=== PATIENT | female | born 1980 | race Caucasian/White ===

== ENCOUNTER → 2017-06-05 13:44 | Outpatient (POV) | payer MEDICAID, SELFPAY | PROVIDERS: Family Provider Nurse Practitioner | DX: Z00.00 Encounter for general adult medical examination without abnormal findings (principal) ==

== ENCOUNTER → 2018-04-18 16:03 | Outpatient (CLI) | payer MEDICAID, SELFPAY ==
--- NOTE | 2018-04-18 16:07 | XR_ITS ---
XR chest 2V HISTORY: ITS.REASON: COUGH,CHEST PAIN ORDERING PHYSICIAN: Hannah Lomeli PATIENT AGE: 37 years COMPARISON: None FINDINGS: The cardiomediastinal silhouette and pulmonary vascularity are within normal limits. The lungs are clear without infiltrates, suspicious nodules, or pleural effusions. No acute bony abnormalities. IMPRESSION: Negative chest, no acute finding
== END ==
PROVIDERS: PCP Family Medicine; Visit Provider Nurse Practitioner
DX: R05 Cough (principal); R07.81 Pleurodynia
CPT/HCPCS: 71046

== ENCOUNTER → 2018-10-24 08:47 | Outpatient (CLI) | payer MEDICAID, SELFPAY ==
--- NOTE | 2018-10-24 09:09 | US_ITS ---
US thyroid HISTORY: ITS.REASON: THYROID NODULE ORDERING PHYSICIAN: Husam Garcia MD PATIENT AGE: 38 years Comparison: None FINDINGS: Right lobe: 4 x 1.5 x 1.4 cm Left lobe: 4.5 x 1.5 x 1.5 cm Isthmus: Unremarkable There is homogeneous echogenicity of the thyroid gland on both sides. No nodules apparent IMPRESSION: Mildly enlarged left lobe of the thyroid gland otherwise negative thyroid ultrasound. No nodules apparent
== END ==
PROVIDERS: PCP Family Medicine; Visit Provider Family Medicine
DX: R06.02 Shortness of breath (principal); E04.1 Nontoxic single thyroid nodule
CPT/HCPCS: 76536

== ENCOUNTER → 2020-12-08 12:49 | Outpatient (CLI) | payer OTHER, SELFPAY ==
--- NOTE | 2020-12-08 12:53 | US_ITS ---
PROCEDURE: US THYROID CLINICAL INDICATION: THYROID NODULE COMPARISON: No exams were available for comparison FINDINGS: Right lobe: The right lobe is 4.2 x 1.7 x 1.5 cm Left lobe: 4.2 x 1.7 x 1.5 cm Isthmus: Unremarkable Additional findings: No nodules are evident. There is homogeneous echogenicity within the thyroid gland on both sides. IMPRESSION: Unremarkable thyroid ultrasound Dictated by: Marcell Edwards MD 12/08/2020 13:34 Marcell Edwards MD in [place] 12/08/2020 13:34
== END ==
PROVIDERS: PCP Family Medicine; Visit Provider Nurse Practitioner
DX: E04.1 Nontoxic single thyroid nodule (principal)
CPT/HCPCS: 76536

== ENCOUNTER → 2021-05-22 12:13 | Outpatient (CLI) | payer OTHER, SELFPAY | PROVIDERS: PCP Family Medicine; Visit Provider Family Medicine | DX: R00.2 Palpitations (principal) | CPT/HCPCS: 93225; 93226 ==

== ENCOUNTER → 2021-11-29 06:59 | Outpatient (CLI) | payer BC, SELFPAY ==
[2021-11-28 19:11] LABS: Alanine Aminotransferase 27 U/L (12-78); Albumin Level 4.2 g/dl (3.5-5.0); Albumin/Globulin Ratio 1.4 (1.1-1.8); Alkaline Phosphatase 67 U/L (38-126); Aspartate Amino Transferase 32 U/L (14-36); Blood Urea Nitrogen 12 mg/dl (7-17); Calcium 9.7 mg/dl (8.4-10.2); Carbon Dioxide 29 mmol/L (22.0-30.0); Chloride 101 mmol/L (98-107); Estimated Glomerular Filt Rate 135 ml/min (>60); GFR (African American) 163 ML/MIN (>60); Globulin 3.1 g/dL (1.3-3.2); Glucose 101 mg/dl (74-100); Magnesium 1.8 mg/dl (1.6-2.3); Phosphorous 4.8 mg/dl (2.5-4.5); Sodium 138 mmol/L (136-145); Total Protein,Serum 7.3 g/dl (6.3-8.2)
[2021-11-28 19:33] LABS: Bilirubin,Total < 0.1 mg/dl (0.2-1.3)
[2021-11-28 19:42] LABS: Basophils # 0.1 K/mm3 (0-0.2); Basophils % 0.6 % (0.1-2.0); Eosinophils # 0.2 K/mm3 (0.0-0.4); Eosinophils % 1.8 % (0.1-12.0); Hematocrit 41.5 % (37.0-47.0); Hemoglobin 14.1 g/dL (12.2-16.2); Lymphocytes # 2.9 K/mm3 (0.7-4.5); Lymphocytes % 35.9 % (10-50); Mean Corpuscular HGB Conc 34.1 g/dL (31.8-35.4); Mean Corpuscular Hemoglobin 30.1 pg (27.0-31.2); Mean Corpuscular Volume 88.3 fl (81-99); Mean Platelet Volume 8.4 fl (7.4-10.4); Monocytes # 0.3 K/mm3 (0.1-1.0); Monocytes % 4.2 % (1.7-9.3); Neutrophils # 4.6 K/mm3 (1.8-7.8); Neutrophils % 57.4 % (37.0-80.0); Platelet Count 286 K/mm3 (142-424); Red Cell Distribution Width 13.2 % (11.5-17.5)
[2021-12-01 13:53] LABS: Creatine Kinase 101 U/L (30-135); Uric Acid 4.8 mg/dl (2.5-6.2)
[2021-12-01 14:05] LABS: Intact Parathyroid Hormone 29.9 pg/mL (7.5-53.5)
[2021-12-01 14:18] LABS: 25-OH Vitamin D, Total 27.2 ng/mL (30-100)
== END ==
LOC: LAB.DROPOF 07:00
PROVIDERS: PCP Nurse Practitioner; Visit Provider Nurse Practitioner
DX: R05.9 Cough, unspecified (principal); E78.5 Hyperlipidemia, unspecified; M62.838 Other muscle spasm; E83.39 Other disorders of phosphorus metabolism; E55.9 Vitamin D deficiency, unspecified
CPT/HCPCS: 80053; 82306; 82550; 83735; 83970; 84100; 84550; 85025

== ENCOUNTER → 2021-12-01 18:13 | Outpatient (CLI) | payer BC, SELFPAY ==
[2021-12-01 18:45] LABS: Phosphorous 4.6 mg/dl (2.5-4.5)
== END ==
PROVIDERS: PCP Nurse Practitioner; Visit Provider Nurse Practitioner
DX: E83.39 Other disorders of phosphorus metabolism (principal)
CPT/HCPCS: 84100

== ENCOUNTER → 2021-12-08 07:32 | Outpatient (CLI) | payer BC, SELFPAY ==
--- NOTE | 2021-12-08 09:14 | CT_ITS ---
FINAL REPORT TECHNIQUE: Thin section axial images were obtained from the thoracic inlet through the upper abdomen after intravenous contrast injection. CLINICAL HISTORY: cough, wheezing FINDINGS: There is no axial lymphadenopathy. There are enlarged mediastinal lymph nodes. An AP lymph node measures 2.5 cm. The subcarinal lymph node measures 2.3 cm. The lungs are clear. There is mild emphysema. There is no pleural or pericardial effusion. Soft tissues are within normal limits. Limited evaluation of the upper abdomen demonstrates fatty infiltration of the liver. Abnormal appearance of the spleen is favored to be related to phase of contrast. Splenic lesions are not excluded. There is no acute osseous abnormality. IMPRESSION: No suspicious pulmonary mass or infiltrate. Nonspecific lymphadenopathy may be reactive or neoplastic. Appearance of the spleen may be abnormal. This could be related to phase of contrast but splenic lesions are not excluded. Consider MRI of the abdomen without and with contrast. Reviewed, Interpreted and Dictated by Zaida Liao MD Transcribed by Ame Peoples Authenticated and [facility]
[2021-12-09 15:21] LABS: Calcium, Ionized 5.1 mg/dL (4.5-5.6)
== END ==
LOC: RT 07:34
PROVIDERS: PCP Family Medicine; Visit Provider Nurse Practitioner
DX: R06.2 Wheezing (principal); R05.3 Chronic cough; E83.39 Other disorders of phosphorus metabolism
CPT/HCPCS: 36415; 71260; 82330; 94060; 94726; 94729; Q9967

== ENCOUNTER → 2021-12-19 08:37 | Outpatient (CLI) | payer BC, SELFPAY ==
--- NOTE | 2021-12-19 08:37 | MR_ITS ---
FINAL REPORT CLINICAL HISTORY: abnormal appearance of spleen on CT.LEFT UPPER QUADRANT PAIN. SYMPTOMS XYEARS. 14ML PROHANCE GIVEN. COMPARISON: 12/08/2021 FINDINGS: Multiplanar MR imaging of the abdomen was performed without and with contrast. Images of the liver reveal no evidence of mass. There is no evidence of biliary ductal dilatation. Patient is status post cholecystectomy No other mass or adenopathy is identified. No abnormal fluid collection is seen. On the post contrast images, there is heterogeneous contrast enhancement of the spleen which appears similar to recent CT. This is less apparent on the later postcontrast images of uncertain etiology, could represent vascular perfusion variant, a mass is felt less likely since no abnormality seen on the noncontrast images. IMPRESSION: Splenic contrast enhancement, favor vascular perfusion variant, mass is felt less likely. If indicated, follow-up CT or MRI may be helpful. Reviewed, Interpreted and Dictated by Jesús Pearson III, MD Transcribed by Pamlea Hua Authenticated and . [facility]
== END ==
LOC: RAD 08:37
PROVIDERS: PCP Family Medicine; Visit Provider Nurse Practitioner
DX: D37.8 Neoplasm of uncertain behavior of other specified digestive organs (principal); R93.89 Abnormal findings on diagnostic imaging of other specified body structures
CPT/HCPCS: 74183; A9576

== ENCOUNTER → 2022-04-10 13:55 | Outpatient (CLI) | payer BC, SELFPAY ==
[2022-04-10 19:35] LABS: Adenovirus,PCR Not Detected (NotDetected); Bordetella Pertussis Not Detected (NotDetected); Chlamydophila Pneumoniae, PCR Not Detected (NotDetected); Coronavirus 19, PCR Not Detected (NotDetected); Coronavirus 229E Not Detected (NotDetected); Coronavirus NL63 Not Detected (NotDetected); Coronavirus OC43 Not Detected (NotDetected); Coronovirus HKU1,PCR Not Detected (NotDetected); Human Metapneumovirus Not Detected (NotDetected); Influenza A, PCR Not Detected (NotDetected); Influenza AH1, 2009 Not Detected (NotDetected); Influenza AH1, PCR Not Detected (NotDetected); Influenza AH3,PCR Not Detected (NotDetected); Influenza B, PCR Not Detected (NotDetected); Mycoplasma Pneumoniae, PCR Not Detected (NotDetected); Parainfluenza 1, PCR Not Detected (NotDetected); Parainfluenza 2, PCR Not Detected (NotDetected); Parainfluenza 3, PCR Not Detected (NotDetected); Parainfluenza 4, PCR Not Detected (NotDetected); Respiratory Syncytial Virus Not Detected (NotDetected); Rhinovirus/Enterovirus Not Detected (NotDetected)
[2022-04-10 19:52] LABS: Basophils # 0.1 K/mm3 (0-0.2); Eosinophils # 0.1 K/mm3 (0.0-0.4); Eosinophils % 1.4 % (0.1-12.0); Hematocrit 48.5 % (37.0-47.0); Hemoglobin 14.8 g/dL (12.2-16.2); Lymphocytes # 2.9 K/mm3 (0.7-4.5); Lymphocytes % 31.3 % (10-50); Mean Corpuscular HGB Conc 30.4 g/dL (31.8-35.4); Mean Corpuscular Hemoglobin 28.7 pg (27.0-31.2); Mean Corpuscular Volume 94.3 fl (81-99); Mean Platelet Volume 9.3 fl (7.4-10.4); Monocytes # 0.4 K/mm3 (0.1-1.0); Monocytes % 4.3 % (1.7-9.3); Neutrophils # 5.8 K/mm3 (1.8-7.8); Neutrophils % 61.9 % (37.0-80.0); Platelet Count 321 K/mm3 (142-424); Red Blood Count 5.15 M/mm3 (4.20-5.40); Red Cell Distribution Width 13.6 % (11.5-17.5); White Blood Count 9.4 K/mm3 (4.8-10.8)
== END ==
LOC: LAB.DROPOF 04-11 07:01
PROVIDERS: PCP Nurse Practitioner; Visit Provider Nurse Practitioner
DX: J06.9 Acute upper respiratory infection, unspecified (principal); J02.9 Acute pharyngitis, unspecified; R05.9 Cough, unspecified
CPT/HCPCS: 85025; 87581; 87632; 87798; C9803; U0003; U0005

== ENCOUNTER → 2022-07-05 07:49 | Outpatient (CLI) | payer BC, SELFPAY ==
--- NOTE | 2022-07-05 08:12 | US_ITS ---
FINAL REPORT TECHNIQUE: Ultrasound images through the abdomen were obtained. CLINICAL HISTORY: midline abdominal wall pain and bulge FINDINGS: No abdominal wall hernia is seen. There is questionable diastasis of the rectus muscles. If indicated, CT could further evaluate. The liver is fatty infiltrated. Patient is status post cholecystectomy. Common duct measures 3 mm. Portal vein is unremarkable at 12 mm. Spleen is borderline enlarged at 12.5 cm. Right kidney measures 10.75 cm. Left kidney measures 11.72 cm. IMPRESSION: Fatty infiltration of the liver. Borderline splenomegaly. No well-defined hernia seen. Questionable diastasis of the rectus muscle. If indicated, consider CT for further evaluation. Reviewed, Interpreted and Dictated by Jesús Pearson III, MD Transcribed by Silvana Berrios Authenticated and [facility]
[2022-07-05 08:56] LABS: Hemoglobin A1C 5.3 % (4.0-6.0)
[2022-07-05 09:03] LABS: Alanine Aminotransferase 21 U/L (12-78); Albumin Level 4.6 g/dl (3.5-5.0); Albumin/Globulin Ratio 1.4 (1.1-1.8); Alkaline Phosphatase 76 U/L (38-126); Anion Gap 6.5 mEq/L (5-15); Aspartate Amino Transferase 26 U/L (14-36); Basophils # 0.1 K/mm3 (0-0.2); Basophils % 1.5 % (0.1-2.0); Bilirubin,Total 0.4 mg/dl (0.2-1.3); Blood Urea Nitrogen 14 mg/dl (7-17); Calcium 9.5 mg/dl (8.4-10.2); Carbon Dioxide 30 mmol/L (22.0-30.0); Chloride 107 mmol/L (98-107); Chol/HDL Ratio 5.7 (1-3.5); Cholesterol 228 mg/dl (140-200); Eosinophils # 0.1 K/mm3 (0.0-0.4); Eosinophils % 1.3 % (0.1-12.0); Estimated Glomerular Filt Rate 78 ml/min (>60); GFR (African American) 95 ML/MIN (>60); Globulin 3.3 g/dL (1.3-3.2); Glucose 90 mg/dl (74-100); HDL Cholesterol 40 mg/dl (40-60); Hematocrit 47.5 % (37.0-47.0); Lymphocytes # 2.1 K/mm3 (0.7-4.5); Lymphocytes % 24.4 % (10-50); Mean Corpuscular HGB Conc 31.6 g/dL (31.8-35.4); Mean Corpuscular Hemoglobin 29.2 pg (27.0-31.2); Mean Corpuscular Volume 92.3 fl (81-99); Mean Platelet Volume 7.8 fl (7.4-10.4); Monocytes # 0.4 K/mm3 (0.1-1.0); Neutrophils # 5.9 K/mm3 (1.8-7.8); Neutrophils % 68.8 % (37.0-80.0); Platelet Count 264 K/mm3 (142-424); Potassium 4.5 mmoL/L (3.5-5.1); Red Blood Count 5.15 M/mm3 (4.20-5.40); Red Cell Distribution Width 13.9 % (11.5-17.5); Sodium 139 mmol/L (136-145); Total Protein,Serum 7.9 g/dl (6.3-8.2); Triglycerides 335 mg/dl (30-150); VLDL Cholesterol 67 mg/dL (0-40); White Blood Count 8.6 K/mm3 (4.8-10.8)
[2022-07-05 09:14] LABS: Direct LDL Cholesterol 108.01 mg/dL (100-129)
[2022-07-05 09:19] LABS: 25-OH Vitamin D, Total 45.8 ng/mL (30-100)
[2022-07-05 09:52] LABS: Vitamin B12 582 pg/mL (239-931)
[2022-07-10 19:39] LABS: Aspergillus flavus Negative (Neg:<1:1); Aspergillus fumigatus Negative (Neg:<1:1); Aspergillus niger Negative (Neg:<1:1); Blastomyces Antibody Negative (Neg:<1:1)
[2022-07-12 03:37] LABS: D001-IgE D pteronyssinus 0.16 kU/L (Class 0/I); D002-IgE D farinae 0.12 kU/L (Class 0/I); E001-IgE Cat Dander <0.10 kU/L (Class 0); E005-IgE Dog Dander <0.10 kU/L (Class 0); E072-IgE Mouse Urine <0.10 kU/L (Class 0); G002-IgE Bermuda Grass 0.16 kU/L (Class 0/I); G006-IgE Timothy Grass 0.16 kU/L (Class 0/I); I006-IgE Cockroach, German 0.18 kU/L (Class 0/I); Immunoglobulin E, Total 149 IU/mL (6-495); M001-IgE Penicillium chrysogen <0.10 kU/L (Class 0); M002-IgE Cladosporium herbarum <0.10 kU/L (Class 0); M003-IgE Aspergillus fumigatus <0.10 kU/L (Class 0); M006-IgE Alternaria alternata <0.10 kU/L (Class 0); T001-IgE Maple/Box Elder 0.13 kU/L (Class 0/I); T003-IgE Common Silver Birch <0.10 kU/L (Class 0); T006-IgE Cedar, Mountain 0.11 kU/L (Class 0/I); T007-IgE Oak, White 0.16 kU/L (Class 0/I); T008-IgE Elm, American 0.14 kU/L (Class 0/I); T010-IgE Walnut 0.14 kU/L (Class 0/I); T011-IgE Maple Leaf Sycamore 0.15 kU/L (Class 0/I); T015-IgE Ash, White 0.15 kU/L (Class 0/I); T022-IgE Pecan, Hickory <0.10 kU/L (Class 0); T070-IgE White Mulberry <0.10 kU/L (Class 0); W001-IgE Ragweed, Short 0.14 kU/L (Class 0/I); W011-IgE Thistle, Russian 0.18 kU/L (Class 0/I); W014-IgE Pigweed, Common 0.12 kU/L (Class 0/I); W018-IgE Sheep Sorrel 0.14 kU/L (Class 0/I)
== END ==
LOC: RAD 07:50
PROVIDERS: Internal Medicine Pulmonary Disease; PCP Nurse Practitioner; Visit Provider Nurse Practitioner
DX: R10.13 Epigastric pain (principal); I10 Essential (primary) hypertension; E78.5 Hyperlipidemia, unspecified; J84.10 Pulmonary fibrosis, unspecified; E66.9 Obesity, unspecified; Z68.27 Body mass index [BMI] 27.0-27.9, adult
CPT/HCPCS: 36415; 76700; 80053; 80061; 82306; 82607; 82785; 83036; 84443; 85025; 86003; 86606; 86612

== ENCOUNTER → 2022-09-26 23:33 | Outpatient (CLI) | payer BC, SELFPAY | PROVIDERS: PCP Nurse Practitioner; Visit Provider Nurse Practitioner | DX: L03.032 Cellulitis of left toe (principal); B95.7 Other staphylococcus as the cause of diseases classified elsewhere | CPT/HCPCS: 87070; 87077; 87186; 87205 ==

== ENCOUNTER → 2022-10-15 12:00 | Outpatient (CLI) | payer BC, SELFPAY | PROVIDERS: Visit Provider Nurse Practitioner Family | DX: M79.675 Pain in left toe(s) (principal) | CPT/HCPCS: 87102; 87206; 87220 ==

== ENCOUNTER → 2022-10-24 23:25 | Outpatient (CLI) | payer BC, SELFPAY ==
[2022-10-24 18:41] LABS: Chol/HDL Ratio 4.2 (1-3.5); Cholesterol 179 mg/dl (140-200); HDL Cholesterol 43 mg/dl (40-60); Triglycerides 341 mg/dl (30-150); VLDL Cholesterol 68 mg/dL (0-40)
[2022-10-24 18:52] LABS: Direct LDL Cholesterol 71.45 mg/dL (100-129)
== END ==
PROVIDERS: PCP Family Medicine; Visit Provider Family Medicine
DX: E78.1 Pure hyperglyceridemia (principal); E78.5 Hyperlipidemia, unspecified
CPT/HCPCS: 80061

== ENCOUNTER 2022-12-09 10:01 | Emergency (ER) | payer BC, SELFPAY ==
[2022-12-09 10:02] VITALS: BP 146/76; PULSE 103; RESP 17; TEMP 36.4; O2SAT 97; BMI 27.1
[2022-12-09 10:10] VITALS: BP 146/76; PULSE 93; RESP 17; O2SAT 97
[2022-12-09 10:30] VITALS: BP 120/72; PULSE 87; O2SAT 94
--- NOTE | 2022-12-09 10:30 | CT_ITS ---
PROCEDURE INFORMATION: Exam: CT Chest Without Contrast; Diagnostic Exam date and time: 12/09/2022 11:10 AM Age: 42 years old Clinical indication: Pain; Right-sided; Additional info: L traumatic thoracic cage pain TECHNIQUE: Imaging protocol: Diagnostic computed tomography of the chest without contrast. 3D rendering (Not supervised by radiologist): MIP and/or 3D reconstructed images were created by the technologist. Radiation optimization: All CT scans at this facility use at least one of these dose optimization techniques: automated exposure control; mA and/or kV adjustment per patient size (includes targeted exams where dose is matched to clinical indication); or iterative reconstruction. REPORTING DATA: Count of CT and Cardiac NM exams in prior 12 months: This patient has received 0 known CTs and 0 known cardiac nuclear medicine studies in the 12 months prior to the current study. COMPARISON: CT CHEST W CON 12/08/2021 9:28 AM FINDINGS: Lungs: Mild changes of centrilobular emphysema. Bibasilar atelectasis versus parenchymal scarring. Findings new since 12/08/2021. Pleural spaces: Unremarkable. No pneumothorax. No pleural effusion. Heart: Unremarkable. No cardiomegaly. No pericardial effusion. Coronary arteries: No evidence of coronary artery calcification. Lymph nodes: Persistent nonspecific mediastinal adenopathy lymph nodes. Findings suboptimally visualized secondary to lack of contrast administration. Densely calcified right hilar lymph nodes Vasculature: Unremarkable. No aortic aneurysm. Gallbladder and bile ducts: Cholecystectomy Spleen: Splenic granulomatous disease. Bones/joints: Unremarkable. No acute fracture. Soft tissues: Unremarkable. IMPRESSION: 1. No evidence of acute intrathoracic abnormality. 2. Bibasilar atelectasis versus parenchymal scarring. Findings new since 12/08/2021. 3. Please see above report for discussion of nonacute findings.
--- NOTE | 2022-12-09 10:37 | XR_ITS ---
PROCEDURE INFORMATION: Exam: XR Right Hip Exam date and time: 12/09/2022 10:54 AM Age: 42 years old Clinical indication: Injury or trauma; Fall; Blunt trauma (contusions or hematomas); Right; Hip TECHNIQUE: Imaging protocol: Radiologic exam of the right hip. Views: 2 or 3 views hip with pelvis when performed. COMPARISON: None FINDINGS: Bones/joints: Unremarkable. No acute fracture. Soft tissues: Unremarkable. IMPRESSION: No acute findings.
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
[2022-12-09 11:30] VITALS: BP 125/77; PULSE 81; O2SAT 95
--- NOTE | 2022-12-09 12:03 | PC.NURSE ---
DR FALCON AT BEDSIDE TO UPDATE PT
[2022-12-09 12:15] VITALS: BP 126/78; PULSE 80; RESP 18; TEMP 36.7; O2SAT 94
== END 2022-12-09 12:19 | disposition home or self-care (01) ==
PROVIDERS: Emergency Provider Emergency Medicine; PCP Family Medicine
DX: R07.81 Pleurodynia (principal); W19.XXXA Unspecified fall, initial encounter; F90.9 Attention-deficit hyperactivity disorder, unspecified type; I10 Essential (primary) hypertension; K21.9 Gastro-esophageal reflux disease without esophagitis; F17.200 Nicotine dependence, unspecified, uncomplicated; E78.5 Hyperlipidemia, unspecified
CPT/HCPCS: 71250; 73502; 99284

== ENCOUNTER → 2022-12-18 23:18 | Outpatient (CLI) | payer BC, SELFPAY ==
[2022-12-18 19:25] LABS: Alanine Aminotransferase 34 U/L (12-78); Albumin Level 4.9 g/dl (3.5-5.0); Albumin/Globulin Ratio 1.4 (1.1-1.8); Alkaline Phosphatase 95 U/L (38-126); Anion Gap 13.7 mEq/L (5-15); Aspartate Amino Transferase 32 U/L (14-36); Bilirubin,Total 0.4 mg/dl (0.2-1.3); Blood Urea Nitrogen 9 mg/dl (7-17); Calcium 9.9 mg/dl (8.4-10.2); Carbon Dioxide 31 mmol/L (22.0-30.0); Chloride 101 mmol/L (98-107); Estimated Glomerular Filt Rate 91 ml/min (>60); GFR (African American) 110 ML/MIN (>60); Globulin 3.4 g/dL (1.3-3.2); Glucose 68 mg/dl (74-100); Potassium 4.7 mmoL/L (3.5-5.1); Sodium 141 mmol/L (136-145); Total Protein,Serum 8.3 g/dl (6.3-8.2)
[2022-12-18 19:28] LABS: Basophils % 0.4 % (0.1-2.0); Eosinophils # 0.1 K/mm3 (0.0-0.4); Hemoglobin 14.8 g/dL (12.2-16.2); Lymphocytes # 2.6 K/mm3 (0.7-4.5); Lymphocytes % 37.3 % (10-50); Mean Corpuscular HGB Conc 31.6 g/dL (31.8-35.4); Mean Corpuscular Hemoglobin 29.2 pg (27.0-31.2); Mean Corpuscular Volume 92.4 fl (81-99); Mean Platelet Volume 9.3 fl (7.4-10.4); Monocytes # 0.4 K/mm3 (0.1-1.0); Monocytes % 5.5 % (1.7-9.3); Neutrophils # 3.8 K/mm3 (1.8-7.8); Neutrophils % 54.8 % (37.0-80.0); Platelet Count 253 K/mm3 (142-424); Red Blood Count 5.09 M/mm3 (4.20-5.40); Red Cell Distribution Width 13.5 % (11.5-17.5)
== END ==
PROVIDERS: PCP Family Medicine; Visit Provider Family Medicine
DX: S20.219A Contusion of unspecified front wall of thorax, initial encounter (principal)
CPT/HCPCS: 80053; 85025

== ENCOUNTER → 2023-03-13 23:00 | Outpatient (CLI) | payer BC, SELFPAY ==
[2023-03-13 19:19] LABS: Coronavirus 19, PCR Not Detected (NotDetected); Influenza A, PCR Not Detected (NotDetected); Influenza B, PCR Not Detected (NotDetected)
[2023-03-13 19:52] LABS: Basophils % 0.7 % (0.1-2.0); Eosinophils # 0.1 K/mm3 (0.0-0.4); Eosinophils % 2.1 % (0.1-12.0); Hemoglobin 14.8 g/dL (12.2-16.2); Lymphocytes # 1.7 K/mm3 (0.7-4.5); Lymphocytes % 29.9 % (10-50); Mean Corpuscular HGB Conc 34.5 g/dL (31.8-35.4); Mean Corpuscular Hemoglobin 31.9 pg (27.0-31.2); Mean Corpuscular Volume 92.4 fl (81-99); Mean Platelet Volume 8.3 fl (7.4-10.4); Monocytes # 0.5 K/mm3 (0.1-1.0); Monocytes % 8.7 % (1.7-9.3); Neutrophils # 3.3 K/mm3 (1.8-7.8); Neutrophils % 58.7 % (37.0-80.0); Platelet Count 214 K/mm3 (142-424); Red Blood Count 4.65 M/mm3 (4.20-5.40); Red Cell Distribution Width 13.3 % (11.5-17.5); White Blood Count 5.7 K/mm3 (4.8-10.8)
== END ==
PROVIDERS: PCP Nurse Practitioner; Visit Provider Nurse Practitioner
DX: J06.9 Acute upper respiratory infection, unspecified (principal); R51.9 Headache, unspecified; J02.9 Acute pharyngitis, unspecified; R05.8 Other specified cough; R53.83 Other fatigue; R06.2 Wheezing
CPT/HCPCS: 85025; 87636

== ENCOUNTER 2023-05-17 11:02 | Outpatient (CLI) | payer BC, SELFPAY | END 2023-05-17 23:59 | LOC: LAB 11:03 | PROVIDERS: PCP Nurse Practitioner; Visit Provider Nurse Practitioner | DX: R05.9 Cough, unspecified (principal); B96.89 Other specified bacterial agents as the cause of diseases classified elsewhere | CPT/HCPCS: 87070; 87205 ==

== ENCOUNTER 2023-06-05 14:34 | Outpatient (CLI) | payer BC, SELFPAY ==
--- NOTE | 2023-06-05 14:34 | CT_ITS ---
FINAL REPORT TECHNIQUE: Routine axial images were obtained from the lung apices to below the diaphragm following IV contrast administration. Individualized dose reduction techniques using automated exposure control or adjustment of the mA and/or kV according to the patient size were employed. CLINICAL HISTORY: cough, left pleuritic chest pain COMPARISON: 12/09/2022 FINDINGS: There is no mediastinal mass. There are small scattered mediastinal lymph nodes of the upper limits of normal in size. Small axillary lymph nodes are noted. No pleural or pericardial effusion is seen. The lungs are clear. Limited images of the upper abdomen demonstrate moderate fatty infiltration of the liver. The gallbladder is absent. There is a heterogeneous region of decreased attenuation in the medial portion of the spleen probably related to phase parenchyma enhancement rather than true mass. IMPRESSION: Upper limits of normal in size scattered mediastinal lymph nodes. Fatty liver. Decreased attenuation in the spleen. Follow-up ultrasound may be of value. Reviewed, Interpreted and Dictated by Ernie Jackson MD Transcribed by Melissa Mccullough Authenticated and [facility]
--- NOTE | 2023-06-05 15:33 | HMH.ITSTN ---
HYPERTENSION WAS LISTED UNDER MEDICAL HX, HOWEVER WE DIDN'T HAVE ANY LABS ON PATIENT. SPOKE TO PATIENT AND SHE IS NO LONGER ON BP MEDS. HYPERTENSION RESOLVED WITH WEIGHT LOSS. NOT A DIABETIC
[2023-06-05] MEDS: IOPAMIDOL-370 (76%);100ML BOTTLE 75 ML IV (15:35)
[2023-06-05] MEDS: SODIUM CHLORIDE 0.9% 10ML SYR (RAD ONLY) 10 ML IV (15:35)
== END 2023-06-05 23:59 ==
LOC: RAD 14:34
PROVIDERS: PCP Nurse Practitioner; Visit Provider Nurse Practitioner
DX: R05.9 Cough, unspecified (principal); R07.81 Pleurodynia; R59.0 Localized enlarged lymph nodes; R93.89 Abnormal findings on diagnostic imaging of other specified body structures
CPT/HCPCS: 71260; Q9967

== ENCOUNTER 2023-07-22 18:31 | Outpatient (CLI) | payer BC, SELFPAY ==
[2023-07-24 09:21] LABS: Estradiol <5.0 pg/mL (.); FSH 48.7 mIU/mL (.); LH 22.7 mIU/mL (.)
[2023-07-26 22:39] LABS: Estrogen 45 pg/mL (.)
== END 2023-07-22 23:59 ==
LOC: LAB.DROPOF 18:31
PROVIDERS: PCP Nurse Practitioner; Visit Provider Nurse Practitioner
DX: N91.2 Amenorrhea, unspecified (principal); N95.1 Menopausal and female climacteric states
CPT/HCPCS: 82670; 82672; 83001; 83002

== ENCOUNTER 2023-10-04 09:45 | Outpatient (CLI) | payer BC, SELFPAY ==
[2023-10-04 18:24] LABS: Basophils # 0.1 K/mm3 (0-0.2); Basophils % 1.2 % (0.1-2.0); Eosinophils # 0.1 K/mm3 (0.0-0.4); Eosinophils % 1.6 % (0.1-12.0); Hematocrit 49.7 % (37.0-47.0); Hemoglobin 16.3 g/dL (12.2-16.2); Lymphocytes # 2.4 K/mm3 (0.7-4.5); Lymphocytes % 28.4 % (10-50); Mean Corpuscular HGB Conc 32.8 g/dL (31.8-35.4); Mean Corpuscular Hemoglobin 30.9 pg (27.0-31.2); Mean Corpuscular Volume 94.3 fl (81-99); Mean Platelet Volume 9.4 fl (7.4-10.4); Monocytes # 0.4 K/mm3 (0.1-1.0); Monocytes % 4.4 % (1.7-9.3); Neutrophils # 5.5 K/mm3 (1.8-7.8); Neutrophils % 64.2 % (37.0-80.0); Platelet Count 243 K/mm3 (142-424); Red Blood Count 5.27 M/mm3 (4.20-5.40); White Blood Count 8.5 K/mm3 (4.8-10.8)
[2023-10-04 18:39] LABS: Alanine Aminotransferase 43 U/L (12-78); Albumin Level 4.7 g/dl (3.5-5.0); Albumin/Globulin Ratio 1.3 (1.1-1.8); Alkaline Phosphatase 87 U/L (38-126); Anion Gap 13.1 mEq/L (5-15); Aspartate Amino Transferase 32 U/L (14-36); Bilirubin,Total 0.4 mg/dl (0.2-1.3); Blood Urea Nitrogen 19 mg/dl (7-17); Calcium 10.7 mg/dl (8.4-10.2); Carbon Dioxide 30 mmol/L (22.0-30.0); Chloride 102 mmol/L (98-107); Chol/HDL Ratio 7.1 (1-3.5); Cholesterol 278 mg/dl (140-200); Estimated Glomerular Filt Rate 68 ml/min (>60); GFR (African American) 82 ML/MIN (>60); Globulin 3.5 g/dL (1.3-3.2); Glucose 100 mg/dl (74-100); HDL Cholesterol 39 mg/dl (40-60); Potassium 5.1 mmoL/L (3.5-5.1); Sodium 140 mmol/L (136-145); Total Protein,Serum 8.2 g/dl (6.3-8.2)
[2023-10-04 18:54] LABS: Triglycerides 593 mg/dl (30-150)
[2023-10-04 18:56] LABS: Direct LDL Cholesterol 127.92 mg/dL (100-129)
[2023-10-04 18:58] LABS: 25-OH Vitamin D, Total 31.8 ng/mL (30-100)
[2023-10-04 19:14] LABS: Thyroid Stimulating Hormone 1.57 uIU/mL (0.465-4.68)
[2023-10-04 19:33] LABS: Vitamin B12 392 pg/mL (239-931)
[2023-10-04 19:58] LABS: Iron 81 ug/dL (37-170)
[2023-10-04 20:08] LABS: Total Iron Binding Capacity 352 ug/dL (265-497)
== END 2023-10-04 23:59 | disposition home or self-care (01) ==
LOC: LAB.DROPOF 10-08 09:45
PROVIDERS: PCP Nurse Practitioner Family; Visit Provider Nurse Practitioner Family
DX: H53.9 Unspecified visual disturbance (principal); K21.9 Gastro-esophageal reflux disease without esophagitis; I10 Essential (primary) hypertension; E78.1 Pure hyperglyceridemia; Z79.899 Other long term (current) drug therapy
CPT/HCPCS: 80053; 80061; 82306; 82607; 83036; 83540; 83550; 84443; 85025

== ENCOUNTER 2023-10-14 21:40 | Outpatient (CLI) | payer BC, SELFPAY ==
[2023-10-14 22:28] LABS: Intact Parathyroid Hormone 25.3 pg/mL (7.5-53.5)
== END 2023-10-14 23:59 | disposition home or self-care (01) ==
LOC: LAB.DROPOF 21:44
PROVIDERS: PCP Nurse Practitioner; Visit Provider Nurse Practitioner
DX: E83.52 Hypercalcemia (principal)
CPT/HCPCS: 83970

== ENCOUNTER 2023-10-28 19:10 | Outpatient (CLI) | payer BC, SELFPAY ==
[2023-10-30 19:40] LABS: Calcium, Ionized 4.8 mg/dL (4.5-5.6)
== END 2023-10-28 23:59 | disposition home or self-care (01) ==
LOC: LAB.DROPOF 19:14
PROVIDERS: PCP Nurse Practitioner; Visit Provider Nurse Practitioner
DX: E83.52 Hypercalcemia (principal)
CPT/HCPCS: 82330

== ENCOUNTER 2024-03-30 12:20 | Outpatient (CLI) | payer BC, SELFPAY ==
[2024-03-30 18:38] LABS: Adenovirus,PCR Not Detected (NotDetected); Bordetella Pertussis Not Detected (NotDetected); Chlamydophila Pneumoniae, PCR Not Detected (NotDetected); Coronavirus 19, PCR Not Detected (NotDetected); Coronavirus 229E Not Detected (NotDetected); Coronavirus NL63 Not Detected (NotDetected); Coronavirus OC43 Not Detected (NotDetected); Coronovirus HKU1,PCR Not Detected (NotDetected); Human Metapneumovirus Not Detected (NotDetected); Influenza A, PCR Not Detected (NotDetected); Influenza AH1, 2009 Not Detected (NotDetected); Influenza AH1, PCR Not Detected (NotDetected); Influenza AH3,PCR Not Detected (NotDetected); Influenza B, PCR Not Detected (NotDetected); Mycoplasma Pneumoniae, PCR Not Detected (NotDetected); Parainfluenza 1, PCR Not Detected (NotDetected); Parainfluenza 2, PCR Not Detected (NotDetected); Parainfluenza 3, PCR Not Detected (NotDetected); Parainfluenza 4, PCR Not Detected (NotDetected); Respiratory Syncytial Virus Not Detected (NotDetected)
[2024-03-30 21:35] LABS: Rhinovirus/Enterovirus Detected (NotDetected)
== END 2024-03-30 23:59 | disposition home or self-care (01) ==
LOC: LAB.DROPOF 03-31 09:49
PROVIDERS: PCP Family Medicine; Visit Provider Family Medicine
DX: R05.9 Cough, unspecified (principal)
CPT/HCPCS: 87633

== ENCOUNTER 2024-04-30 09:10 | Outpatient (CLI) | payer BC, SELFPAY ==
[2024-04-30 19:10] LABS: Hematocrit 42.2 % (37.0-47.0); Hemoglobin 13.6 g/dL (12.2-16.2); Lymphocytes % 29.2 % (10-50); Mean Corpuscular HGB Conc 32.2 g/dL (31.8-35.4); Mean Corpuscular Hemoglobin 28.9 pg (27.0-31.2); Mean Corpuscular Volume 89.8 fl (81-99); Mean Platelet Volume 9.5 fl (7.4-10.4); Neutrophils % 60.9 % (37.0-80.0); Platelet Count 329 K/mm3 (142-424); White Blood Count 7.1 K/mm3 (4.8-10.8)
[2024-04-30 19:11] LABS: Basophils % 0.6 % (0.1-2.0); Eosinophils # 0.2 K/mm3 (0.0-0.4); Eosinophils % 2.1 % (0.1-12.0); Lymphocytes # 2.1 K/mm3 (0.7-4.5); Monocytes # 0.4 K/mm3 (0.1-1.0); Monocytes % 5.9 % (1.7-9.3); Neutrophils # 4.3 K/mm3 (1.8-7.8)
[2024-04-30 19:26] LABS: Alanine Aminotransferase 32 U/L (12-78); Albumin Level 4.4 g/dl (3.5-5.0); Albumin/Globulin Ratio 1.3 (1.1-1.8); Alkaline Phosphatase 78 U/L (38-126); Anion Gap 11.4 mEq/L (5-15); Aspartate Amino Transferase 34 U/L (14-36); Bilirubin,Total 0.5 mg/dl (0.2-1.3); Blood Urea Nitrogen 14 mg/dl (7-17); Calcium 9.3 mg/dl (8.4-10.2); Carbon Dioxide 30 mmol/L (22.0-30.0); Chloride 102 mmol/L (98-107); Chol/HDL Ratio 5.8 (1-3.5); Cholesterol 191 mg/dl (140-200); Estimated Glomerular Filt Rate 90 ml/min (>60); GFR (African American) 109 ML/MIN (>60); Globulin 3.3 g/dL (1.3-3.2); Glucose 103 mg/dl (74-100); HDL Cholesterol 33 mg/dl (40-60); Potassium 4.4 mmoL/L (3.5-5.1); Sodium 139 mmol/L (136-145); Total Protein,Serum 7.7 g/dl (6.3-8.2); Triglycerides 232 mg/dl (30-150); VLDL Cholesterol 46 mg/dL (0-40)
[2024-04-30 19:38] LABS: Direct LDL Cholesterol 108.96 mg/dL (100-129)
[2024-04-30 19:43] LABS: T4 (Thyroxine) 9.8 ug/dl (5.53-11.0)
[2024-04-30 20:35] LABS: HIV Combo NEGATIVE (Negative)
[2024-05-02 08:14] LABS: HCV Ab Non Reactive (Non Reactive)
== END 2024-04-30 23:59 | disposition home or self-care (01) ==
LOC: LAB.DROPOF 05-01 09:46
PROVIDERS: PCP Nurse Practitioner Family; Visit Provider Nurse Practitioner Family
DX: Z76.89 Persons encountering health services in other specified circumstances (principal); Z11.4 Encounter for screening for human immunodeficiency virus [HIV]
CPT/HCPCS: 80050; 80053; 80061; 84436; 84443; 85025; 86803; 87389

== ENCOUNTER 2024-06-12 09:47 | Outpatient (CLI) | payer BC, SELFPAY ==
--- NOTE | 2024-06-12 09:54 | XR_ITS ---
FINAL REPORT CLINICAL HISTORY: L Hip pain no injury, increase in pain when walking FINDINGS: Left hip Three views were obtained. There is no fracture or dislocation. There are mild hypertrophic changes of the sacroiliac joints bilaterally. No soft tissue abnormality is identified. IMPRESSION: Mild hypertrophic changes of the sacroiliac joints. Reviewed, Interpreted and Dictated by Ernie Jackson MD Transcribed by Pamela Hua Authenticated and [facility]
== END 2024-06-12 23:59 | disposition home or self-care (01) ==
LOC: RAD 09:48
PROVIDERS: PCP Nurse Practitioner; Visit Provider Nurse Practitioner Family
DX: M25.552 Pain in left hip (principal)
CPT/HCPCS: 73502

== ENCOUNTER 2024-09-22 12:24 | Outpatient (CLI) | payer BC, SELFPAY | END 2024-09-22 23:59 | disposition home or self-care (01) | LOC: LAB.DROPOF 09-24 12:24 | PROVIDERS: PCP Nurse Practitioner; Visit Provider Nurse Practitioner | DX: B37.9 Candidiasis, unspecified (principal) | CPT/HCPCS: 87086 ==

== ENCOUNTER 2024-09-28 16:00 | Outpatient (CLI) | payer BC, SELFPAY ==
[2024-09-28 18:13] LABS: Lyme Ab IgM CIA ND; Lyme IgG CIA ND
[2024-09-28 18:55] LABS: Basophils # 0.1 K/mm3 (0-0.2); Basophils % 0.8 % (0.1-2.0); Eosinophils # 0.1 Kmm3 (0.0-0.4); Eosinophils % 1.7 % (0.1-12.0); Hematocrit 38.6 % (37.0-47.0); Hemoglobin 12.7 g/dL (12.2-16.2); Immature Granulocytes # 0 10^3uL; Immature Granulocytes % 0 %; Lymphocytes # 2.5 K/mm3 (0.7-4.5); Lymphocytes % 41.3 % (10-50); Mean Corpuscular HGB Conc 32.9 g/dL (31.8-35.4); Mean Corpuscular Hemoglobin 28.7 pg (27.0-31.2); Mean Corpuscular Volume 87.1 fl (81-99); Mean Platelet Volume 9.7 fl (7.4-10.4); Monocytes # 0.5 K/mm3 (0.1-1.0); Monocytes % 8.7 % (1.7-9.3); Neutrophils # 2.8 K/mm3 (1.8-7.8); Neutrophils % 47.5 % (37.0-80.0); Nucleated Red Blood Cells # 0 10^3/uL; Nucleated Red Blood Cells % 0 %; Platelet Count 275 K/mm3 (142-424); Red Blood Count 4.43 M/mm3 (4.20-5.40); Red Cell Distribution Width 12.7 % (11.5-17.5); Red Cell Distribution Width-SD 40.1 fL
[2024-09-28 19:45] LABS: Erythrocyte Sedimentation Rate 50 mm/hr (0-20)
[2024-09-28 20:51] LABS: C-Reactive Protein 10.6 mg/L (0-4)
--- OUTSIDE RECORDS SUMMARY | 2024-09-28 21:50 | XMS_ITS ---
Author Organization Unknown Medications Medication Instructions Effective Dates (start - stop) Status amphetamine aspartate 2.5 MG / amphetamine sulfate 2.5 MG / dextroamphetamine saccharate 2.5 MG / dextroamphetamine sulfate 2.5 MG Oral Tablet 4961-44-67Y14:00:00.000+00: 00 - Completed amphetamine aspartate 2.5 MG / amphetamine sulfate 2.5 MG / dextroamphetamine saccharate 2.5 MG / dextroamphetamine sulfate 2.5 MG Oral Tablet 8904-81-12C76:00:00.000+00: 00 - Completed dextromethorphan hydrobromid e 3 MG/ML / promethazine hydrochloride 1.25 MG/ML Oral Solution 8105-85-99O49:00:00.000+00: 00 - Completed amphetamine aspartate 2.5 MG / amphetamine sulfate 2.5 MG / dextroamphetamine saccharate 2.5 MG / dextroamphetamine sulfate 2.5 MG Oral Tablet 4585-50-24D42:00:00.000+00: 00 - Completed amphetamine aspartate 2.5 MG / amphetamine sulfate 2.5 MG / dextroamphetamine saccharate 2.5 MG / dextroamphetamine sulfate 2.5 MG Oral Tablet 1594-69-16X05:00:00.000+00: 00 - Completed dextromethorphan hydrobromid e 3 MG/ML / promethazine hydrochloride 1.25 MG/ML Oral Solution 8564-38-35C25:00:00.000+00: 00 - Completed amphetamine aspartate 2.5 MG / amphetamine sulfate 2.5 MG / dextroamphetamine saccharate 2.5 MG / dextroamphetamine sulfate 2.5 MG Oral Tablet 7156-67-28Y57:00:00.000+00: 00 - Completed amphetamine aspartate 2.5 MG / amphetamine sulfate 2.5 MG / dextroamphetamine saccharate 2.5 MG / dextroamphetamine sulfate 2.5 MG Oral Tablet 8753-80-81E49:00:00.000+00: 00 - Completed amoxicillin 875 MG / clavula tenisha 125 MG Oral Tablet 0986-24-09M54:00:00.000+00: 00 - Completed amphetamine aspartate 2.5 MG / amphetamine sulfate 2.5 MG / dextroamphetamine saccharate 2.5 MG / dextroamphetamine sulfate 2.5 MG Oral Tablet 3804-22-00R06:00:00.000+00: 00 - Completed [id number] 200 ACTUAT albuter ol 0.09 MG/ACTUAT Metered Dose Inhaler 1141-24-67V82:00:00.000 +00: 00 - Completed 3 ML liraglutide 6 MG/ML Pen Injector [Saxenda] 4085-11-66T98:00:00.000+00: 00 - Completed 3 ML liraglutide 6 MG/ML Pen Injector [Saxenda] 0521-53-37R23:00:00.000+00: 00 - Completed 3 ML liraglutide 6 MG/ML Pen Injector [Saxenda] 5259-22-43V88:00:00.000+00: 00 - Completed 3 ML liraglutide 6 MG/ML Pen Injector [Saxenda] 7629-60-61N00:00:00.000+00: 00 - Completed atorvastatin 10 MG Oral Tablet 2 973-36-21O27:00:00.000+00: 00 - Completed 3 ML liraglutide 6 MG/ML Pen Injector [Saxenda] 7746-50-29I59:00:00.000+00: 00 - Completed atorvastatin 10 MG Oral Tablet 2 018-82-32Z09:00:00.000+00: 00 - Completed azithromycin 500 MG Oral Tablet 6661-72-46T93:00:00.000+00: 00 - Completed benzonatate 200 MG Oral Capsule 7092-90-89B35:00:00.000+00: 00 - Completed aspirin 81 MG Chewable Tablet 02-10-10:00:00.000+00: 00 - Completed - 2945-11-13K12:00 :00.000+00: 00 - Completed - 3183-59-03L58:00 :00.000+00: 00 - Completed sulfacetamide sodium 100 MG/ ML Ophthalmic Solution 9158-40-57W85:00:00.000+00: 00 - Completed benzonatate 200 MG Oral Capsule 3624-65-52P52:00:00.000+00: 00 - Completed - 1445-69-69B01:00 :00.000+00: 00 - Completed clindamycin 300 MG Oral Capsule 0614-31-53F42:00:00.000+00: 00 - Completed Patient Care team information Name Category Status Period Participants - - Proposed period not known -
[2024-09-30 14:47] LABS: Lyme Ab CIA Negative (Negative)
== END 2024-09-28 23:59 | disposition home or self-care (01) ==
LOC: LAB.DROPOF 21:49
PROVIDERS: PCP Nurse Practitioner; Visit Provider Nurse Practitioner
DX: L08.9 Local infection of the skin and subcutaneous tissue, unspecified (principal); S30.861A Insect bite (nonvenomous) of abdominal wall, initial encounter
CPT/HCPCS: 85025; 85651; 86140; 86618

== ENCOUNTER 2024-11-23 09:10 | Outpatient (CLI) | payer BC, SELFPAY ==
--- OUTSIDE RECORDS SUMMARY | 2024-09-28 11:40 | XMS_ITS | Encounter Summary ---
Author [place] [address] Care Team Providers Care Waterproofing Supervisor Name Role Phone Curly Garcia Primary Care Provider [phone] Reason for Referral * Mammography (Routine) - Pending Review Specialty Diagnoses / Procedures Referred By Colby mahan Referred To Contact Radiology Diagnoses Encounter for screening mammogram for malignant neoplasm of breast Procedures MM MAMMO DIGITAL YESSI SCREEN Erin Linares CNM [address] [place] [address] Phone: tel: fax: Referral ID Status Reason Start Date Expiration Date V isits Requested Visits Authorized [id number] Pending Review 09/28/2024 09/28/2026 1 1 Reason for Visit * Mammography (Routine) - Pending Review Specialty Diagnoses / Procedures Referred By Colby mahan Referred To Contact Radiology Diagnoses Encounter for screening mammogram for malignant neoplasm of breast Procedures MM MAMMO DIGITAL YESSI SCREEN Erin Linares CNM [address] [place] [address] Phone: tel: fax: Referral ID Status Reason Start Date Expiration Date V isits Requested Visits Authorized [id number] Pending Review 09/28/2024 09/28/2026 1 1 Encounter Details Date Type Department Care Team (Latest Contact Info) Description 09/28/2024 11:40 AM EDT - 09/28/2024 11:59 PM EDT Hospital Encounter [facility] [address] [place] [phone] Erin Kurtz, CNM [address] [place] [address] Encounter for screening mammogram for malignant neoplasm of breast Discharge Disposition: Home or Self Care Social History Tobacco Use Types Packs/Day Years Used Date Smoking Tobacco: Former Cigarettes 2 31.8 1 993 - 02/24/2024 Smokeless Tobacco: Never Alcohol Use Standard Drinks/Week Comments Yes 0 (1 standard drink = 0.6 oz pur e alcohol) 2-3 times per year [facility] Utilities Answer Date Recorded In the past 12 months has th e electric, gas, oil, or water company threatened to shut off services in your home? No 09/07/2024 Overall Financial Resource Strain (CARDIA) Answe r Date Recorded How hard is it for you to pa y for the very basics like food, housing, medical care, and heating? Not hard at all 09/07/2024 PHQ-2 Answer Date Recorded PHQ-2 Total Score 0 09/07/2024 [facility] - Occupational Stress Questionnaire Answer Date Recorded Do you feel stress - tense, restless, nervous, or anxious, or unable to sleep at night because your mind is troubled all the time - these days? Not at all 09/07/2024 Exercise Vital Sign Answer Date Recorde d On average, how many days pe r week do you engage in moderate to strenuous exercise (like a brisk walk)? 3 days 09/07/2024 On average, how many minutes do you engage in exercise at this level? 30 min 09/07/2024 Hunger Vital Sign Answer Date Recorded Within the past 12 months, y ou worried that your food would run out before you got the money to buy more. Never true 09/08/19 25 Within the past 12 months, t he food you bought just didn't last and you didn't have money to get more. Never true 09/07/2024 [facility] IP Transportation Answer D ate Recorded In the past 12 months, has l ack of reliable transportation kept you from medical appointments, meetings, work or from getting things needed for daily living? No 09/07/2024 Sexually Active Control Partners Comments Yes Other-see comments Male vasectomy Comments No Sex and Gender Information Value Date Recorded Sex Assigned at Not on file Legal Sex Female 4:10 AM EDT Gender Identity Not on file Sexual Orientation Not on file documented as of this encounter Medications at Time of Discharge albuterol (PROVENTIL HFA;VENTOLIN HFA) 90 mcg/actuation Inhl HFA Aerosol Inhaler INHALE 2 PUFFS EVERY 6 HOURS NEEDED FOR SHORTNESS OF BREATH OR WHEEZING 05/16/2022 atorvastatin (LIPITOR) 10 mg Oral Tablet TAKE 1 TABLET ORALLY ONCE DAILY 08/03/2022 dextroamphetamin e-amphetamine (ADDERALL) 10 mg Oral Tablet Take 10 mg by mouth 2 times daily. 0 08/13/2017 fluticasone propionate (FLONASE) 50 mcg/actuation [place]l [place], Suspension 1 [place] in each nostril daily. 9.9 mL 09/08/2024 documented as of this encounter Discharge Disposition Disposition Code Departure Means Destination Home or Self Care documented in this encounter Plan of Treatment Not on file documented as of this encounter Procedures Procedure Name Priority Date/Time Associated Diagnosis Comments MM MAMMO DIGITAL YESSI SCREEN BILAT Routine 09/28/2024 11:59 AM EDT Encounter for screening mammogram for malignant neoplasm of breast documented in this encounter Results * MM MAMMO DIGITAL YESSI SCREEN BILAT (09/28/2024 11:59 AM EDT) Anatomical Region Laterality Modality Breast Bilateral Mammography 09/28/2024 11:5 9 AM EDT Impressions 09/29/2024 8:40 AM EDT Negative (NON-Ovatdtas-7) RECOMMENDATION: Routine Screening Mammogram in 1 Year Bilateral . . COMMENTS: DISCLAIMER *The patient was notified by MyChart or mail of the results for this examination. *The patient's information was entered into a reminder system with a target due date for the next breast imaging, in accordance with the [employer] and the Society of Breast Imaging recommendations. *Breast Imaging has a false negative rate of 15%. *Any patient with a palpable abnormality, unexplained by breast imaging, should be managed on a clinical basis by the attending physician. Narrative 09/29/2024 8:40 AM EDT EXAM: MM MAMMO DIGITAL YESSI SCREEN BILAT EXAM DATE: 09/28/2024 11:59 AM INDICATION: Z12.31-Encounter for screening mammogram for malignant neoplasm of [id number] COMPARISON STUDIES: Compared with prior studies the most recent being 11/26/2022 MM MAMMO DIGITAL YESSI DIAGN BILAT at [facility] 11/02/2021 MM MAMMO DIGITAL YESSI SCREEN BILAT at [facility] 05/15/2019 MM MAMMO DIGITAL YESSI SCREEN BILAT at [facility] TISSUE DENSITY: There are scattered areas of fibroglandular density. FINDINGS: No mammographic evidence of malignancy. Procedure Note Alex Smith MD - 09/29/2024 EXAM: MM MAMMO DIGITAL YESSI SCREEN BILAT EXAM DATE: 09/28/2024 11:59 AM INDICATION: Z12.31-Encounter for screening mammogram for malignantneoplasm of [id number] COMPARISON STUDIES: Compared with prior studies the most recent being 11/26/2022 MM MAMMO DIGITAL YESSI DIAGN BILAT at [facility] 11/02/2021 MM MAMMO DIGITAL YESSI SCREEN BILAT at [facility] 05/15/2019 MM MAMMO DIGITAL YESSI SCREEN BILAT at [facility] TISSUE DENSITY: There are scattered areas of fibroglandular density. FINDINGS: No mammographic evidence of malignancy. IMPRESSION: Negative ([id number]-1) RECOMMENDATION: Routine Screening Mammogram in 1 Year Bilateral . . COMMENTS: DISCLAIMER *The patient was notified by MyChart or mail of the results for this examination. *The patient's information was entered into a reminder system with atarget due date for the next breast imaging, in accordance with the [employer] and the Society of Breast Imaging recommendations. *Breast Imaging has a false negative rate of 15%. *Any patient with a palpable abnormality, unexplained by breast imaging,should be managed on a clinical basis by the attending physician. us Erin Kurtz [facility] M[facility] ORDERABLES Final Result documented in this encounter Visit Diagnoses Diagnosis Encounter for screening mammogram for malignant neoplasm of breast Other screening mammogram documented in this encounter Care Teams Waterproofing Supervisor Relationship Specialty Start Date End Date Curly Garcia [address] [place], [place] [id number] [facility] [id number] P[facility] - General Family Medicine 05/24/14 documented as of this encounter
[2024-11-23 15:15] LABS: Alanine Aminotransferase 57 U/L (12-78); Albumin Level 4.5 g/dl (3.5-5.0); Albumin/Globulin Ratio 1.4 (1.1-1.8); Alkaline Phosphatase 84 U/L (38-126); Amylase 59 U/L (30-110); Anion Gap 16.9 mEq/L (5-15); Aspartate Amino Transferase 51 U/L (14-36); Bilirubin,Total 0.3 mg/dl (0.2-1.3); Blood Urea Nitrogen 6 mg/dl (7-17); Calcium 10.0 mg/dl (8.4-10.2); Carbon Dioxide 25 mmol/L (22.0-30.0); Chloride 100 mmol/L (98-107); Cholesterol 186 mg/dl (140-200); Creatinine,Serum 0.50 mg/dl (0.52-1.04); Estimated Glomerular Filt Rate 133 ml/min (>60); GFR (African American) 161 ML/MIN (>60); Globulin 3.2 g/dL (1.3-3.2); Glucose 95 mg/dl (74-100); HDL Cholesterol 32 mg/dl (40-60); Potassium 3.9 mmoL/L (3.5-5.1); Sodium 138 mmol/L (136-145); Total Protein,Serum 7.7 g/dl (6.3-8.2); Triglycerides 321 mg/dl (30-150)
[2024-11-23 17:36] LABS: Hematocrit 41.2 % (37.0-47.0); Hemoglobin 13.3 g/dL (12.2-16.2); Immature Granulocytes % 0.3 %; Mean Corpuscular HGB Conc 32.3 g/dL (31.8-35.4); Mean Corpuscular Hemoglobin 28.4 pg (27.0-31.2); Mean Corpuscular Volume 87.8 fl (81-99); Nucleated Red Blood Cells % 0 %; Platelet Count 249 K/mm3 (142-424); Red Blood Count 4.69 M/mm3 (4.20-5.40); Red Cell Distribution Width-SD 41.9 fL; White Blood Count 6.3 K/mm3 (4.8-10.8)
--- OUTSIDE RECORDS SUMMARY | 2024-11-24 10:02 | XMS_ITS | Clinical Summary ---
Author Organization Referral[facility] Address [address] [place] [address] Phone Care Team Providers Care Clinical Nursing Professor Name Role Phone Unavailable Unavailable Conditions or Problems Problem Name Problem Code Onset Date Status Entry Date Provider Comment Standard Description Annotate ABSENCE OF MENSTRUATION 657157174 (SNOMED CT) 11/17 Resolved 11/17 Gely North CNM Menstruation absent PNEUMONIA 658027736 (SNOMED CT) Resolved Gely North CNM Pneumonia SINUSITIS ACUTE 44429332 (SNOMED CT) Resolved Gely North CNM Acute sinusitis PHYSICAL EXAMINATION 7012024 (SNOMED CT) Resolved Gely North CNM Physical examination ABDOMINAL PAIN 91086187 (SNOMED CT) 07/05 Resolved 07/05 Gely North CNM Abdominal pain ABSCESS, VULVA 59175760 (SNOMED CT) 12/09 Resolved 12/09 Gely North CNM Abscess of vulva ABSENCE OF MENSTRUATION 191712492 (SNOMED CT) 11/17 Removed 11/17 Gely North CNM Menstruation absent ABSCESS, VULVA 70726588 (SNOMED CT) 12/09 Removed 12/09 Shelli Shankar MD Abscess of vulva ABDOMINAL PAIN 74996900 (SNOMED CT) 07/05 Removed 07/05 Darien Mercedes MD Abdominal pain FAMILY PLANNING 184487608 (SNOMED CT) 05/29 Active 05/29 Kaleigh Villarreal RN Contraception care STD SCREENING 200749546 (SNOMED CT) 05/29 Inactive 05/29 Darien Mercedes MD Venereal disease screening MANAGER TECHNICAL SUPPORT EXAM 40061071 (SNOMED CT) 05/29 Inactive 05/29 Darien Mercedes MD Gynecologic examination PHYSICAL EXAMINATION 4526693 (SNOMED CT) Removed Jerman Abilio MA Physical examination OBSTRUCTIVE SLEEP APNEA 85451299 (SNOMED CT) Active Darien Mercedes MD Obstructive sleep apnea syndrome SINUSITIS ACUTE 96226536 (SNOMED CT) Removed Darien Mercedes MD Acute sinusitis PNEUMONIA 948723605 (SNOMED CT) Removed Darien Mercedes MD Pneumonia Medications Medication Instructions Start Date Stop Date Generic Name [facility] Provider JANNY 0.35 MG TABS 1 daily NORETHINDRONE [id number] Gely TEJADAM AZITHROMYCIN 250 MG TABS 2 tabs PO on day 1 then 1 tab PO Qday on days 2-7 AZITHROMYCIN 00916908958 Gely North CNM VENTOLIN HFA 108 (90 Base) MCG/ACT AERS 2 puffs inhaled O6dxkbm PRN wheezing/coughi ng ALBUTEROL SULFATE 44225791414 Darien Mercedes MD AZITHROMYCIN 250 MG TABS 2 tabs PO on day 1 then 1 tab PO Qday on days 2-7 AZITHROMYCIN 78002574451 Darien Mercedes MD Medications Administered No information available. Allergies, Adverse Reactions, Alerts Observed no known allergies at Results Date Name Value Unit Range Flag Description Lab Report: BASIC METABOLIC PANEL, LIPID PANEL WITH REFLEX TO DIRECT LDL ... TRIGLYCRDES 317 mg/dL <150 H Triglycer carly [Mass/volume] in Serum or Plasma - mg/dL CHOLESTEROL 221 mg/dL 125-200 H Cholester ol [Mass/volume] in Serum or Plasma - mg/dL HDL 39 mg/dL >OR = 46 L Cholesterol in HDL [Mass/volume] in Serum or Plasma - mg/dL LDL 119 MG/DL (CALC) mg/dL <130 N Cholesterol in L DL [Mass/volume] in Serum or Plasma - mg/dL CHOL/HDL % 5.7 (calc) < OR = 5.0 H cholesterol/HDL ratio, serum, percent CALCIUM 9.6 mg/dL 8.6-10.2 N Calcium [Moles/volume] in Serum or Plasma CO2 23 mmol/L 21-33 N Carbon dioxid e, total [Moles/volume] in Venous blood CHLORIDE BLD 104 mmol/L 98-110 N chloride , blood POTASSIUM 4.6 mmol/L 3.5-5.3 N Potassium [Moles/volume] in Serum or Plasma SODIUM 138 mmol/L 135-146 N Sodium [Moles/volume] in Serum or Plasma BUN/CREAT NOT APPLICABLE (calc) 6-22 Urea nitrogen/Creatinine [Mass Ratio] in Serum or Plasma EGFR 116 mL/min/1. 73m2 >OR = 60 N Glomerular filtration rate/1.73 sq M.predicted [Volume Rate/Area] in Serum, Plasma or Blood by Creatinine-based formula (MDRD) CREATININE 0.68 mg/dL 0.58-1.06 N Creatini ne [Mass/volume] in Serum or Plasma BUN 8 mg/dL 7-25 N Urea nitrogen [Mass/volume] in Serum or Plasma Append: HCG Results PREG TST URN negative beta HC G, urine, semiquantitative Lab Report: CHLAM/N.GONO PRO BE W/REFL ENDOCX OR MALE URETHRA, HEPATITIS ... ANTI-HAV NON-REACTIVE NON-REACT I N Hepatitis A virus Ab [Presence] in Serum ANTI-HBS NON-REACTIVE NON-REACT I N Hepatitis B virus surface Ab [Presence] in Serum HBSAG NON-REACTIVE NON-REACT I N Hepatitis B virus surface Ag [Presence] in Serum or Plasma by Confirmatory method HB CORE IGM NON-REACTIVE NON-REACT I N Hepatitis B virus core IgG+IgM Ab [Presence] in Serum or Plasma by Immunoassay HEP C AB NON-REACTIVE NON-REACT I N Hepatitis C virus Ab [Presence] in Serum Lab Report: CBC (INCLUDES DI FF/PLT), HEPATIC FUNCTION PANEL, LIPASE LIPASE SERUM 29 U/L 7-60 N lipase, serum SGPT (ALT) 20 U/L 6-40 N Alanine aminotransferase [Enzymatic activity/volume] in Serum or Plasma SGOT (AST) 24 U/L 10-30 N Aspartate aminotransferase [Enzymatic activity/volume] in Serum or Plasma ALK PHOS 76 U/L 33-115 N Alkaline david sphatase [Enzymatic activity/volume] in Blood BILI DIRECT 0.0 mg/dL < OR = 0.2 N Bilirubin.direct [Mass/volume] in Serum or Plasma BILI TOTAL 0.2 mg/dL 0.2-1.2 N Bilirubin. total [Mass/volume] in Serum or Plasma A/G RATIO 1.5 (calc) 1.0-2.1 N Albumin/ Globulin [Mass Ratio] in Serum or Plasma GLOBULIN TOT 3.1 G/DL (CALC) g/dL 2.2-3.9 N Globulin [Mass/volume] in Serum ALBUMIN EOP 4.5 g/dL 3.6-5.1 N Albumin [Mass/volume] in Serum or Plasma by Electrophoresis PROTEIN, TOT 7.6 g/dL 6.2-8.3 N Protein [Mass/volume] in Serum or Plasma BASO % MANU 0.3 % N basophils as percent of blood leukocytes, manual count EOS % MANU 1.1 % N eosinophil s as percent of blood leukocytes, manual count MONOCYTE % 7.3 % N Monocytes/ 100 leukocytes in Blood by Automated count LYMPH% P BLD 26.6 % N lymphocy demetrice as percent of blood leukocytes PMN % 64.7 % N Neutrophils/1 00 leukocytes in Blood by Automated count ABS BASOS 27 {Cells}/u L 0-200 N Basophils [#/volume] in Blood ABS EOS 98 {Cells}/u L 15-500 N Eosinophils [#/volume] in Blood ABS MONOS 650 {Cells}/u L 200-950 N Monocytes [#/volume] in Blood ABSLYMPHCT 2367 {Cells}/u L 850-3900 N Lymphocytes [#/volume] in Blood ABS NEUTROPH 5758 CELLS/UL 10*3/uL 0414-5500 N Neutrophils [#/volume] in Blood PLATELETK/UL 279 THOUSAND/UL 10*3/uL 140-400 N platelet count RDW 13.3 % 11.0-15.0 N Erythrocyte distribution width [Ratio] by Automated count OL-MCHC 34.0 g/dL 32.0-36.0 N mean corpus cular hemoglobin concentration, rbc MCH 30.8 pg 27.0-33.0 N MCH [Entiti c mass] by Automated count MCV 90.8 fL 80.0-100. 0 N MCV [Entitic volume] by Automated count HCT 43.3 % 35.0-45.0 N Hematocrit [Volume Fraction] of Blood by Automated count HGB 14.7 g/dL 11.7-15.5 N Hemoglobin [Mass/volume] in Blood RBC M/UL 4.78 MILLION/UL 10*6/uL 3.80-5.10 N re d blood count WBC CT BLOOD 8.9 10*3/uL 3.8-10.8 N leukocy te count, blood Office Visit: cyst on vagina possibly to be drained. rm 4 BG RANDOM 94 mg/dL Glucose [Mass/volume] in Blood Lab Report: HCG, TOTAL, QN BETA-HCG QN <2 mIU/mL m[iU]/mL N beta H CG, serum, quantitative Plan of Care Type Date Detail Pending order ThinPrep w HR HP V/GC/Chlamydia mRNA E6/E7 Pending order HCG Quantitative Pending order Ultrasound Gall Bladder Pending order CBC with diff Pending order Lipase Pending order Hepatitic Functi on Panel Pending order Pap (Out Order) Pending order Kassandra Petersy (Out O rder) Pending order Test Pending order BMP Pending order Lipid Panel Procedures Code Procedure Name Date Entry Date [facility]# [id number] ThinPrep w HR HPV/GC/Chlamydia mRNA E6/E7 8396 [facility] Test # HCG Quantitative 11/17 CPT-55204 Venipuncture US [facility] Ultrasound Gall Bladder 2011 CPT-31192 CBC with diff CPT-20568 Lipase CPT-11282 Hepatitic Function Panel 201 06/14/22 CPT II 1000F #114: Tobacco use assessed 2 CPT II 1036F #114: Current tobacco non-user CPT-G8457 #115: Current tobacco non-user CPT-02634 Test CPT-05781 Pap (Out Order) CPT-71943 Kassandra Tavares (Out Order) 05/29 CPT-14818 Venipuncture CPT-93113 BMP CPT-48902 Lipid Panel Vital Signs Date Name Value Unit Description BMI (Body Mass Index) 0.22 kg/m2 Bod y Mass Index (Ratio) BP Diastolic 96 mm[Hg] blood pressu re, diastolic BP Systolic 156 mm[Hg] blood pressur e, systolic Heart Rate 114 /min pulse rate Weight Measured 171 [lb_av] weight E& M Weight Measured 171 [lb_av] weight E& M Weight Measured 77.73 kg weight in kilograms E&M Height 1889.76 cm height in cent imeters E&M Height 744 [in_us] height E&M Body Temperature 99.1 [degF] temperat ure E&M Body Temperature 37.3 Elana temperat ure in centigrade E&M Immunizations No information available. Advance Directives No information available.
--- OUTSIDE RECORDS SUMMARY | 2024-11-24 10:03 | XMS_ITS | Encounter Summary ---
Author Organization [facility] [place] [address] Care Team Providers Care Retail Link Analyst Name Role Phone Curly Garcia Primary Care Provider [phone] Encounter Details Date Type Department Care Team (Late st Contact Info) Description 09/29/2024 Results Follow-Up SEP [facility] [address] [place] [address] Asiya Javed RN MM MAMMO DIGITAL YESSI SCREEN BILAT Social History Tobacco Use Types Packs/Day Years Used Date Smoking Tobacco: Former Cigarettes 2 31.8 1 993 - 02/24/2024 Smokeless Tobacco: Never Alcohol Use Standard Drinks/Week Comments Yes 0 (1 standard drink = 0.6 oz pur e alcohol) 2-3 times per year [facility] Utilities Answer Date Recorded In the past 12 months has [employer], gas, oil, or water [employer] threatened to shut off services in your home? No 09/07/2024 Overall Financial Resource Strain (CARDIA) Answe r Date Recorded How hard is it for you to pa y for the very basics like food, housing, medical care, and heating? Not hard at all 09/07/2024 PHQ-2 Answer Date Recorded PHQ-2 Total Score 0 09/07/[address] [facility] - Occupational Stress [...] money to get more. Never true 09/07/2024 [facility] IP Transportation Answer D ate Recorded In [...] on file documented as of this encounter Plan of Treatment Not on file documented as of this encounter Visit Diagnoses Not on filedocumented in this encounter Care Teams Retail Link Analyst Relationship Specialty Start Date End Date Curly Garcia [address] [place] [address] [address] [place] [address] PCP - General Family Medicine 05/24/14 documented as of this encounter
--- OUTSIDE RECORDS SUMMARY | 2024-11-24 10:03 | XMS_ITS ---
Author Organization Unknown Medications Medication Instructions Effective Dates (start - stop) Status amphetamine aspartate 2.5 MG / amphetamine sulfate 2.5 MG / dextroamphetamine saccharate 2.5 MG / dextroamphetamine sulfate 2.5 MG Oral Tablet 6396-62-56W67:00:00.000+00: 00 - Completed amphetamine aspartate 2.5 MG / amphetamine sulfate 2.5 MG / dextroamphetamine saccharate 2.5 MG / dextroamphetamine sulfate 2.5 MG Oral Tablet 8086-64-14K80:00:00.000+00: 00 - Completed dextromethorphan hydrobromid e 3 MG/ML / promethazine hydrochloride 1.25 MG/ML Oral Solution 3687-61-27U34:00:00.000+00: 00 - Completed amphetamine aspartate 2.5 MG / amphetamine sulfate 2.5 MG / dextroamphetamine saccharate 2.5 MG / dextroamphetamine sulfate 2.5 MG Oral Tablet 0384-80-31X94:00:00.000+00: 00 - Completed amphetamine aspartate 2.5 MG / amphetamine sulfate 2.5 MG / dextroamphetamine saccharate 2.5 MG / dextroamphetamine sulfate 2.5 MG Oral Tablet 1433-27-24H64:00:00.000+00: 00 - Completed dextromethorphan hydrobromid e 3 MG/ML / promethazine hydrochloride 1.25 MG/ML Oral Solution 3254-35-37T64:00:00.000+00: 00 - Completed amphetamine aspartate 2.5 MG / amphetamine sulfate 2.5 MG / dextroamphetamine saccharate 2.5 MG / dextroamphetamine sulfate 2.5 MG Oral Tablet 8275-10-14H33:00:00.000+00: 00 - Completed amphetamine aspartate 2.5 MG / amphetamine sulfate 2.5 MG / dextroamphetamine saccharate 2.5 MG / dextroamphetamine sulfate 2.5 MG Oral Tablet 4766-59-06L62:00:00.000+00: 00 - Completed amoxicillin 875 MG / clavula tenisha 125 MG Oral Tablet 0563-75-05H99:00:00.000+00: 00 - Completed amphetamine aspartate 2.5 MG / amphetamine sulfate 2.5 MG / dextroamphetamine saccharate 2.5 MG / dextroamphetamine sulfate 2.5 MG Oral Tablet 3444-93-25H80:00:00.000+00: 00 - Completed [id number] 200 ACTUAT albuter ol 0.09 MG/ACTUAT Metered Dose Inhaler 6955-33-55F35:00:00.000 +00: 00 - Completed 3 ML liraglutide 6 MG/ML Pen Injector [Saxenda] 4324-02-63C17:00:00.000+00: 00 - Completed 3 ML liraglutide 6 MG/ML Pen Injector [Saxenda] 3094-59-63S34:00:00.000+00: 00 - Completed 3 ML liraglutide 6 MG/ML Pen Injector [Saxenda] 1449-95-45T56:00:00.000+00: 00 - Completed 3 ML liraglutide 6 MG/ML Pen Injector [Saxenda] 0415-70-07J08:00:00.000+00: 00 - Completed atorvastatin 10 MG Oral Tablet 2 020-71-70V68:00:00.000+00: 00 - Completed 3 ML liraglutide 6 MG/ML Pen Injector [Saxenda] 4803-25-37G88:00:00.000+00: 00 - Completed atorvastatin 10 MG Oral Tablet 2 669-61-19T59:00:00.000+00: 00 - Completed azithromycin 500 MG Oral Tablet 0658-68-66O48:00:00.000+00: 00 - Completed benzonatate 200 MG Oral Capsule 2099-92-68C98:00:00.000+00: 00 - Completed aspirin 81 MG Chewable Tablet 02-10-10:00:00.000+00: 00 - Completed - 0090-82-57N10:00 :00.000+00: 00 - Completed - 5779-34-84P06:00 :00.000+00: 00 - Completed sulfacetamide sodium 100 MG/ ML Ophthalmic Solution 5469-53-12Z03:00:00.000+00: 00 - Completed benzonatate 200 MG Oral Capsule 4790-85-05U45:00:00.000+00: 00 - Completed - 0955-87-95G87:00 :00.000+00: 00 - Completed clindamycin 300 MG Oral Capsule 7481-61-13G34:00:00.000+00: 00 - Completed Patient Care team information Name Category Status Period Participants - - Proposed period not known -
--- OUTSIDE RECORDS SUMMARY | 2024-11-24 10:03 | XMS_ITS | Encounter Summary ---
Author Organization [place] [address] Care Team Providers Care Drill Instructor Name Role Phone Curly Garcia Primary Care Provider [phone] Encounter Details Date Type Department Care Team (Late st Contact Info) Description 04/04/2020 Lab Requisition [facility] [place] [id number] Elder Corrales MD [address] [place] [address] Diarrhea, unspecified; Change in bowel habit; Diverticulosis of large intestine without perforation or abscess without bleeding Social History Tobacco Use Types Packs/Day Years Used Date Smoking Tobacco: Every Day Cigarettes 1.5 16 Started: 07/16/2002; Last attempted to quit: 07/01/2017 Smokeless Tobacco: Never Alcohol Use Standard Drinks/Week Comments No 0 (1 standard drink = 0.6 oz pur e alcohol) Sexually Active Control Partners Comments Yes Coitus interruptus Male Comments No Sex and Gender Information Value Date Recorded Sex Assigned at Not on file Legal Sex Female 4:10 AM EDT Gender Identity Not on file Sexual Orientation Not on file COVID-19 Exposure Response Date Recorded In the last month, have you been in contact with someone who was confirmed or suspected to have Coronavirus / COVID-19? No / Unsure 04/01/2020 1:39 PM EST documented as of this encounter Plan of Treatment Not on file documented as of this encounter Procedures Procedure Name Priority Date/Time Associated Diagnosis Comments PATHOLOGY TISSUE REQUEST Routine 04/04/2020 8:30 AM EST Diarrhea, unspecified Change in bowel habit Diverticulosis of large intestine without perforation or abscess without bleeding documented in this encounter Results * PATHOLOGY TISSUE REQUEST (04/04/2020 8:30 AM EST) CASE REPORT Surgical Pathology Case: [id number] Authorizing Provider: Elder Corrales MD Collected: 04/04/2020 0830 Ordering Location: [facility] Received: 04/04/2020 1509 Pathologist: Miranda Candelario MD Specimen: Colon 04/05/2020 9:21 AM EST [facility] CLINICAL HISTORY Postprandial diarrhea; change in bowel habits. 04/05/2020 9:21 AM EST [facility] FINAL DIAGNOSIS Colon, random biopsies: - Colonic mucosa without significant pathologic change. 04/05/2020 9:21 AM EST [facility] at 0921 EST MICROSCOPIC DESCRIPTION Microscopic examination is performed and the findings corroborate the diagnosis. 04/05/2020 9:21 AM EST [facility] EMBEDDED IMAGES 04/05/2020 9:21 AM EST [facility] GROSS DESCRIPTION Received in formalin labeled with the patient's name and random colon biopsies are multiple fragments of cyr tissue ranging from 0.2 to 0.5 cm in greatest dimension. Entirely submitted in one cassette. /ZN 04/05/2020 9:21 AM EST [facility] Tissue COLON STRUCTURE / Unknown 04/04/2020 8:30 AM EST 04/04/2020 3:08 PM EST us Elder Corrales MD PATHOLOGY ORDERABLES Final Result [facility] [address] [place] [address] [facility] [address] [place] [address] documented in this encounter Visit Diagnoses Diagnosis Diarrhea, unspecified Change in bowel habit Diverticulosis of large intestine without perforation or abscess without bleeding Diverticulosis of colon (without mention of hemorrhage) documented in this encounter Additional Health Concerns Infection Onset Date Last Indicated Resolved Time R/O COVID-19 04/23/2024 04/23/2024 04/23/2024 3:42 AM EST R/O COVID-19 09/06/2024 09/06/2024 09/07/2024 12:3 6 AM EDT documented as of this encounter Care Teams Drill Instructor Relationship Specialty Start Date End Date Curly Garcia [address] [place] [address] [address] [place] [address] PCP - General Family Medicine 05/24/14 documented as of this encounter
--- OUTSIDE RECORDS SUMMARY | 2024-11-24 10:03 | XMS_ITS | Encounter Summary ---
Author Organization [place] [address] Care Team Providers Care Facsimile Operator Name Role Phone Curly Garcia Primary Care Provider [phone] Encounter Details Date Type Department Care Team (Late st Contact Info) Description 04/04/2020 Orders Only SEP Gastro [facility] [address] [address] Elder Corrales MD [address] [place] [id number] Social History Tobacco Use Types Packs/Day Years [...] Procedure Name Priority Date/Time Associated Diagnosis Comments [facility] COLONOSCOPY Routine 04/04/2020 8:30 AM EST documented in this encounter Results * [facility] COLONOSCOPY (04/04/2020 8:30 AM EST) 04/04/2020 8:30 AM EST Impressions [facility] - 04/04/2020 8:40 AM EST Internal hemorrhoids. Mild diverticulosis of the sigmoid colon. Normal mucosa in the terminal ileum. Normal mucosa in the whole colon. (Biopsy). Plan: Follow up pathology results. High Fiber Diet. Soluble fiber is recommended for diarrhea and insoluble fiber is recommended for constipation. Align 4mg po daily Citrucel 500mg po BID Follow-up office visit in 3-4 months. This section is an excerpt of the full report. us Elder Corrales MD GI PROCEDURE ORDERABLES Khurram cody Result - Final [facility] [address] [place] [address] documented in this encounter Visit Diagnoses Not on filedocumented in this encounter Additional Health Concerns Infection Onset Date Last Indicated Resolved Time R/O COVID-19 04/23/2024 04/23/2024 04/23/2024 3:42 AM EST R/O COVID-19 09/06/2024 09/06/2024 09/07/2024 12:3 6 AM EDT documented as of this encounter Care Teams Facsimile Operator Relationship Specialty Start Date End Date Curly Garcia [facility] [address] [place] [address] PCP - General Family Medicine 05/24/14 documented as of this encounter
--- OUTSIDE RECORDS SUMMARY | 2024-11-24 10:03 | XMS_ITS | Encounter Summary ---
Author Organization [place] [address] Care Team Providers Care Coal Washer Name Role Phone Curly Garcia Primary Care Provider [phone] Encounter Details Date Type Department Care Team (Late st Contact Info) Description 06/11/2014 Orders Only SEP Gastro [facility] [address] [address] Luke Rutherford MD Social History Tobacco Use Types Packs/Day Years Used Date Smoking Tobacco: Every Day Cigarettes Smokeless Tobacco: Never Alcohol Use Standard Drinks/Week Comments No 0 (1 standard drink = 0.6 oz pur e alcohol) Comments No Sex and Gender Information Value Date Recorded Sex Assigned at Not on file Legal Sex Female 4:10 AM EDT Gender Identity Not on file Sexual Orientation Not on file documented as of this encounter Plan of Treatment Not on file documented as of this encounter Procedures Procedure Name Priority Date/Time Associated Diagnosis Comments [facility] EGD Routine 06/11/2014 10:15 AM EST documented in this encounter Results * [facility] EGD (06/11/2014 10:15 AM EST) 06/11/2014 10:1 5 AM EST Impressions [facility] - 06/11/2014 10:46 AM EST Normal esophagus. Normal duodenum. Erosions in the antrum compatible with erosive gastritis. (Biopsy). This section is an excerpt of the full report. us Luke Rutherford MD GI PROCEDURE ORDERABLES Final R esult [facility] [address] [place] [address] documented in this encounter Visit Diagnoses Not on filedocumented in this encounter Additional Health Concerns Infection Onset Date Last Indicated Resolved Time R/O COVID-19 01/26/2020 01/26/2020 01/27/2020 3:41 PM EDT R/O COVID-19 04/23/2024 04/23/2024 04/23/2024 3:42 AM EST R/O COVID-19 09/06/2024 09/06/2024 09/07/2024 12:3 6 AM EDT documented as of this encounter Care Teams Coal Washer Relationship Specialty Start Date End Date Curly Garcia [address] [place] [address] [address] [facility] [address] PCP - General Family Medicine 05/24/14 documented as of this encounter
--- OUTSIDE RECORDS SUMMARY | 2024-11-24 10:03 | XMS_ITS | Clinical Summary ---
Author Organization [facility] Address [address] [place] [address] Phone Care Team Providers Care Principal Process Engineer Name Role Phone Curly Garcia Primary Care Provider Allergies Active Allergy Reactions Criticality Noted Date Comments Oxycodone-Acetaminophen Itching High 09/19/2017 Medications dextroamphetami ne-amphetamine (ADDERALL) 10 mg Oral Tablet Take 10 mg by mouth 2 times daily. 0 8 Active atorvastatin (LIPITOR) 10 mg Oral Tablet TAKE 1 TABLET ORALLY ONCE DAILY 3 Active albuterol (PROVENTIL HFA;VENTOLIN HFA) 90 mcg/actuation Inhl HFA Aerosol Inhaler INHALE 2 PUFFS EVERY 6 HOURS NEEDED FOR SHORTNESS OF BREATH OR WHEEZING 3 Active fluticasone propionate (FLONASE) 50 mcg/actuation Nasl Monroe, Suspension 1 Monroe in each nostril daily. 9.9 mL 5 Active Active Problems Patient Care Coordination No te Formatting of this note migh t be different from the original. Favio POON Controlled report completed 10/15/2016 Request#[id number] Informed consent signed 09/24/2016 Problem Noted Date Diagnosed Date Pneumonia of left lower lobe due to infectious o rganism 09/07/2024 Assessment & Plan (09/08/2024 9:10 AM EDT): P/w lethargy and hypoxia. Some concern for underlying COPD. She improved on IV antibiotics and was titrated off O2, discharged on Augmentin. She will benefit from outpt PFTs. Assessment & Plan (09/07/2024 8:42 AM EDT): P/w lethargy and hypoxia. Some concern for underlying COPD. - cont CTX + AZT - wean supplemental O2 as tolerated - will benefit from outpt PFTs - DuoNeb Sepsis with acute hypoxic re spiratory failure without septic shock 09/07/2024 Assessment & Plan (09/08/2024 9:10 AM EDT): P/w lethargy and hypoxia. Some concern for underlying COPD. She improved on IV antibiotics and was titrated off O2, discharged on Augmentin. She will benefit from outpt PFTs. Assessment & Plan (09/07/2024 8:42 AM EDT): P/w lethargy and hypoxia. Some concern for underlying COPD. - cont CTX + AZT - wean supplemental O2 as tolerated - will benefit from outpt PFTs - DuoNeb Moderate episode of recurrent major depressive d isorder 09/07/2024 Assessment & Plan (09/08/2024 8:08 AM EDT): H/o Si with plan, no active SI. She would like to follow up with her PCP for this issue. Assessment & Plan (09/07/2024 8:42 AM EDT): H/o Si with plan, no active SI. - offered counseling vs medications, pt elects for very close follow up with PCP Paresthesia 09/07/2024 Assessment & Plan (09/08/2024 8:08 AM EDT): H/o VZV in L neck region. P/w paresthesia in linear distribution of RUE. Unclear if this represents VZV or not, but treated empirically out of an abundance of caution. Assessment & Plan (09/07/2024 12:59 PM EDT): H/o VZV in L neck region. P/w paresthesia in linear distribution of RUE. - start empiric valtrex, though unclear if truly a shingles recurrence Dyslipidemia 10/29/2022 FH: heart disease 04/11/2018 Deviated nasal septum 10/16/2016 Vasovagal syncope 02/16/2016 Essential hypertension 02/16/2016 Assessment & Plan (09/07/2024 8:42 AM EDT): - monitor trend off meds Tobacco use 02/16/2016 Assessment & Plan (09/07/2024 8:42 AM EDT): - Pt currently in maintenance phase of quitting. - Counseling given on impact of smoking and NRT options discussed for 11 mins, resources provided for cessation help Encounters Date Type Department Care Team Description 09/29/2024 Results [facility] [address] [facility] [place] [address] Asiya Javed RN MM MAMMO DIGITAL YESSI SCREEN BILAT 09/28/2024 11:40 AM EDT - 09/28/2024 11:59 PM EDT Hospital Encounter [facility] Mammogram [address] [place] [address] Erin Kurtz CNM Encounter for screening mammogram for malignant neoplasm of breast Discharge Disposition: Home or Self Care 09/06/2024 11:10 PM EDT - 09/08/2024 9:54 AM EDT Hospital Encounter [facility] 3C PULMONARY [facility] [place] [address] Gallito Chavez MD Swikert, Donald J, MD Pneumonia of left lower lobe due to infectious organism (Primary Dx); Acute respiratory failure with hypoxemia (HCC) Discharge Disposition: Home or Self Care 09/06/2024 Travel from Last 3 Months Immunizations Immunization Administration Dates Next Due Pneumococcal Conjugate Vaccine 20 Valent 025 Surgical History Surgery Date Site/Laterality Comments APPENDECTOMY CHOLECYSTECTOMY 07/11/2014 - 08/10/2014 SECTION DENTAL SURGERY SHOULDER SURGERY 05/13/2001 - 05/12/2002 Left SEPTOPLASTY 10/16/2016 Nose/N/A SEPTOPLASTY; Surgeon: Keo Mendoza MD; Location: [facility] MAIN OR; Service: ENT NOSE SURGERY septoplasty ABDOMINOPLASTY 10/11/2017 - 11/09/2017 Medical History Medical History Date Comments Syncope and collapse Hypertension Fibroid Heartburn Hiatal hernia Family History Medical History Relation Name Comments No Known Problems Brother Heart Attack Father Demetrius Giles Heart Disease Father Demetrius Giles Heart Failure Father Demetrius Giles Seizures Father Demetrius Giles High Cholesterol Maternal Aunt 1 GREAT AUNT Hypertension Maternal Aunt 1 GREAT AUNT Ovarian Cancer Maternal Aunt 1 GREAT AUNT Thyroid Disease Maternal Aunt 1 GREAT AUNT High Cholesterol Maternal Aunt 2 Araceli Gleason Anemia Maternal Aunt 3 Araceli Gleason High Cholesterol Maternal Aunt 3 Araceli Gleason High Cholesterol Maternal Aunt 4 GREAT AUNT Hypertension Maternal Aunt 4 GREAT AUNT Ovarian Cancer Maternal Aunt 4 GREAT AUNT Thyroid Disease Maternal Aunt 4 GREAT AUNT No Known Problems Maternal Grandfather No Known Problems Maternal Grandmother Diabetes Maternal Uncle 1 [place] Heart Failure Maternal Uncle 1 [place] High Cholesterol Maternal Uncle 1 [place] Hypertension Maternal Uncle 1 [place] Heart Failure Maternal Uncle 2 [place] High Cholesterol Maternal Uncle 3 Hypertension Maternal Uncle 4 Heart Surgery Maternal Uncle 5 [place] Lo[place] Hypertension Maternal Uncle 5 [place] Leone High Cholesterol Maternal Uncle 6 [place] leone Arrhythmia Mother Porsche Giles Bleeding Prob Mother Porsche Giles Clotting Disorder Mother Porsche Giles Diabetes Mother Porsche Giles Hearing Loss Mother Porsche Giles Heart Attack Mother Porsche Giles Heart Disease Mother Porsche Giles Heart Failure Mother Porsche Giles pace maker High Cholesterol Mother Porsche Giles Hypertension Mother Porsche Giles Pacemaker Mother Porsche Giles Thyroid Disease Mother Porsche Giles Breast Cancer Other pt first cousi n breast cancer No Known Problems Paternal Grandfather No Known Problems Paternal Grandmother Thyroid Disease Sister Lopez Allergies Neg Hx Cancer Neg Hx Migraines Neg Hx Relation Name Status Comments Brother Father Demetrius Giles Alive Maternal Aunt 1 GREAT AUNT Alive Maternal Aunt 2 Araceli Gleason Maternal Aunt 3 Araceli Gleason Alive Maternal Aunt 4 GREAT [place] Alive Maternal Grandfather Maternal Grandmother Maternal Uncle 1 [place] Maternal Uncle 2 [place] Maternal Uncle 3 Maternal Uncle 4 Maternal Uncle 5 [place] Leone Alive Maternal Uncle 6 [place] leone Alive Mother Porsche Giles Alive Other Paternal Grandfather Paternal Grandmother Sister Lopez Social History Tobacco Use Types Packs/Day Years Used Date Smoking Tobacco: Former Cigarettes 2 31.8 1 993 - 02/24/2024 Smokeless Tobacco: Never Tobacco Cessation:Counseling Given: Not Answered Alcohol Use Standard Drinks/Week Comments Yes 0 (1 standard drink = 0.6 oz pur e alcohol) 2-3 times per year [facility] Utilities Answer Date Recorded In the past 12 months has e electric, gas, oil, or water company threatened to shut off services in your home? No 09/07/2024 Overall Financial Resource Strain (CARDIA) Answe r Date Recorded How hard is it for you to pa y for the very basics like food, housing, medical care, and heating? Not hard at all 09/07/2024 PHQ-2 Answer Date Recorded PHQ-2 Total Score 0 09/07/2024 [facility] - Occupational Stress [...] money to get more. Never true 09/07/2024 [facility] IP Transportation Answer D ate Recorded [...] on file Sexual Orientation Not on file Obstetrics History Para Term AB IAB SAB Ectopic Multiple Livin g Live Births 3 1 1 2 2 1 1 Date Outcome GA Total Labor Labor/2nd/3rd Weight Sex Type Anes PTL Pat A1 A5 Name Clin Term F CS-LT ranv Living SAB SAB Last Filed Vital Signs Vital Sign Reading Time Taken Comments Blood Pressure 128/88 09/08/2024 7:50 AM EDT Pulse 88 09/08/2024 8:30 AM EDT Temperature 37 C (98.6 F) 09/08/2024 7:50 AM EDT Respiratory Rate 16 09/08/2024 8:30 AM EDT Oxygen Saturation 93% 09/08/2024 8:30 AM EDT Inhaled Oxygen Concentration - - Weight 77.6 kg (171 lb) 09/07/2024 2:30 AM EDT Height 157.5 cm (5' 2 ) 09/07/2024 2:30 AM EDT Body Mass Index 31.28 09/07/2024 2:30 AM EDT Plan of Treatment Health Maintenance Due Date Last Done Comments Hepatitis B Vaccine (1 of 3 - 19+ 3-dose series) 1997 Annual Wellness Exam 10/02/2015 10/01/2014 (Not Ente red) Cologuard 08/13/2023 FIT 08/13/2023 Sigmoidoscopy 08/13/2023 Virtual Colonography 08/13/2023 COVID-19 Vaccine ( season) 2024 05/16/2021, 06/22/2020, 05/20/2020 Influenza Vaccine (#1) 2025 02/26/2023 Pap Smear 09/12/2025 09/12/2022, 0805/2020, 07/11/2017, Additional history exists Breast Cancer Screening 09/28/2026 09/29/19, 11/26/2022, 11/02/2021, Additional history exists Cervical Cancer Screening 09/13/2027 HPV/Pap Cotest 09/13/2027 09/12/2022 Colon Cancer Screening 04/04/2030 Colonoscopy 04/04/2030 04/04/2020 DTaP/TDaP/Td (6 - Td or Tdap) 08/14/2034 08/14/2024, 07/15/1996, 09/06/1994, Additional history exists Pneumococcal Vaccine 0-49 Aged Out 09/08/2024 No longer eligible based on patient's age to complete this topic Meningococcal B Vaccine Aged Out No l onger eligible based on patient's age to complete this topic Procedures Procedure Name Priority Date/Time Associated Diagnosis Comments MM MAMMO DIGITAL YESSI SCREEN BILAT Routine 09/28/2024 11:59 AM EDT Encounter for screening mammogram for malignant neoplasm of breast ECG AND WAVEFORMS - TELEMETRY Routine 09/08/2024 7:04 AM EDT COMPREHENSIVE METABOLIC PANEL Timed 09/08/2024 6:12 AM EDT CBC WITH DIFF Early AM 09/08/2024 6:12 AM EDT ECG AND WAVEFORMS - TELEMETRY Routine 09/07/2024 7:30 PM EDT SCANNED EKG 09/07/2024 2:30 PM EDT ECG AND WAVEFORMS - TELEMETRY Routine 09/07/2024 7:00 AM EDT IP CONSULT TO CASE MANAGEMENT Routine 09/07/2024 5:57 AM EDT COMPREHENSIVE METABOLIC PANEL Timed 09/07/2024 5:49 AM EDT CBC WITH DIFF Early AM 09/07/2024 5:49 AM EDT ECG AND WAVEFORMS - TELEMETRY Routine 09/07/2024 3:13 AM EDT TROPONIN-T HIGH SENSITIVITY 2HR Timed 09/07/2024 2:02 AM EDT ADMIT Routine 09/07/2024 12:54 AM EDT BLOOD CULTURE (NO STAIN) STAT 09/07/2024 12:03 AM EDT URINALYSIS REFLEX STAT 09/06/2024 11: 53 PM EDT HEPATIC FUNCTION PANEL STAT 11:53 PM EDT UA W/REFLEX TO CULTURE STAT 11:53 PM EDT BLOOD GAS, VENOUS STAT 09/06/2024 11: 53 PM EDT PROCALCITONIN STAT 09/06/2024 11:53 PM EDT LACTIC ACID STAT 09/06/2024 11:53 PM EDT TROPONIN-T HIGH SENSITIVITY BASELINE W/ REFLEX STAT 09/06/2024 11:53 PM EDT BASIC METABOLIC PANEL STAT 09/06/2024 11:53 PM EDT CBC STAT 09/06/2024 11:53 PM EDT EXTRA ESTRADA URINE CX STAT 09/06/2024 1 1:53 PM EDT HLCL-[id number]-OSP A/B Routine 09/06/2024 11: 53 PM EDT BLOOD CULTURE (NO STAIN) STAT 09/06/2024 11:53 PM EDT XR CHEST AP PORTABLE JULY 09/06/2024 11:19 PM EDT EK EKG 12 LEAD STAT 09/06/2024 11:00 PM EDT STOCK TRACER CYTOLOGY REQUEST (PAP ONLY) Routine 09/12/2022 12:06 PM EDT Encounter for cervical Pap smear with pelvic exam [facility] COLONOSCOPY Routine 04/04/2020 8:30 AM EST from Last 3 Months or Most Recently Relevant to Health Maintenance Results * MM MAMMO DIGITAL YESSI SCREEN BILAT (09/28/2024 11:59 AM EDT) Anatomical Region Laterality Modality Breast Bilateral Mammography 09/28/2024 11:5 9 AM EDT Impressions 09/29/2024 8:40 AM EDT Negative ([id number]) RECOMMENDATION: Routine Screening Mammogram in 1 Year Bilateral . . COMMENTS: DISCLAIMER *The patient was notified by MyChart or mail of the results for this examination. *The patient's information was entered into a reminder system with a target due date for the next breast imaging, in accordance with the [place] [employer] and the Society of [...] for screening mammogram for malignant neoplasm of [id number] COMPARISON STUDIES: Compared with prior studies the most recent being 11/26/2022 MM MAMMO DIGITAL YESSI DIAGN BILAT at [facility] 11/02/2021 MM MAMMO DIGITAL YESSI SCREEN BILAT at [facility] 05/15/2019 MM MAMMO DIGITAL YESSI SCREEN BILAT at [facility] TISSUE DENSITY: There are scattered areas of fibroglandular density. FINDINGS: No mammographic evidence of malignancy. Procedure Note Alex Smith MD - 09/29/2024 EXAM: MM MAMMO DIGITAL YESSI SCREEN BILAT EXAM DATE: 09/28/2024 11:59 AM INDICATION: Z12.31-Encounter for screening mammogram for malignantneoplasm of [id number] COMPARISON STUDIES: Compared with prior studies the most recent being 11/26/2022 MM MAMMO DIGITAL YESSI DIAGN BILAT at [facility] 11/02/2021 MM MAMMO DIGITAL YESSI SCREEN BILAT at [facility] 05/15/2019 MM MAMMO DIGITAL YESSI SCREEN BILAT at [facility] TISSUE DENSITY: There are scattered areas of fibroglandular density. FINDINGS: No mammographic evidence of malignancy. IMPRESSION: Negative ([id number]) RECOMMENDATION: Routine Screening Mammogram in 1 Year Bilateral . . COMMENTS: DISCLAIMER *The patient was notified by MyChart or mail of the results for this examination. *The patient's information was entered into a reminder system with atarget due date for the next breast imaging, in accordance with the [place] [employer] and the Society of Breast Imaging recommendations. *Breast Imaging has a false negative rate of 15%. *Any patient with a palpable abnormality, unexplained by breast imaging,should be managed on a clinical basis by the attending physician. Erin Kurtz [facility] IMG MAMMOGRAPHY ORDERABLES Final Result * ECG AND WAVEFORMS - TELEMETRY (09/08/2024 7:04 AM EDT) Only the most recent of4 resultswithin the time period is included. [facility] ECG INTERPRET NSR [facility] 09/08/2024 7:04 AM EDT Narrative [facility] - 09/08/2024 8:25 AM EDT ROUTINE-BB DC 0.18 QRS 0.07 RR 0.63 QT 0.31 QTc 0.39 See Clinical Report link for waveform capture us Unknown Provider POINT OF CARE CARDIOLOGY Final Result [facility] [address] [place] [address] * CBC WITH DIFF (09/08/2024 6:12 AM EDT) Only the most recent of2 resultswithin the time period is included. [facility] WBC 5.0 3.7 - 10.3 x10(3)/mcL 09/08/2024 7:19 AM EDT [facility] [employer] RBC 4.15 3.90 - 5.20 x10(6)/mcL 09/08/2024 7:19 AM EDT [facility] [employer] Hgb 11.8 11.2 - 15.7 g/dL 09/08/2024 7:19 AM EDT [facility] [employer] Hct 36.8 34.0 - 45.0 % 09/08/2024 7:19 AM EDT [facility] [employer] MCV 88.7 80.0 - 100.0 fL 09/08/2024 7:19 AM EDT [facility] MCH 28.4 26.0 - 34.0 pg 09/08/2024 7:19 AM EDT [facility] MCHC 32.1 30.7 - 35.5 g/dL 09/08/2024 7:19 AM EDT [facility] RDW 12.7 <=14.9 % 09/08/2024 7:19 AM EDT [facility] Platelet 185 155 - 369 x10(3)/mcL 09/08/2024 7:19 AM EDT [facility] MPV 9.6 8.8 - 12.5 fL 09/08/2024 7:19 AM EDT [facility] Neut Percent 60.5 % 09/08/2024 7:19 AM EDT [facility] Comment:Neutrophils equals s egs plus bands Imm Gran% 0.4 % 09/08/2024 7:19 AM EDT [facility] Comment:Automated count of m etamyelocytes, myelocytes and promyelocytes. Lymph Percent 28.5 % 09/08/2024 7:19 AM EDT [facility] Mercer Percent 7.2 % 09/08/2024 7:19 AM EDT [facility] Eos Percent 3.2 % 09/08/2024 7:19 AM EDT [facility] Baso Percent 0.2 % 09/08/2024 7:19 AM EDT [facility] Neut # 3.0 1.6 - 6.1 x10(3)/mcL 09/08/2024 7:19 AM EDT [facility] Comment:Neutrophils equals s egs plus bands IMMGRAN# 0.0 0.0 - 0.1 x10(3)/mcL 09/08/2024 7:19 AM EDT [facility] Comment:Automated count of m etamyelocytes, myelocytes and promyelocytes. An absolute IG <0.1 is reported as 0.0. Lymph # 1.4 1.2 - 3.9 x10(3)/mcL 09/08/2024 7:19 AM EDT [facility] Mercer # 0.4 0.3 - 0.9 x10(3)/mcL 09/08/2024 7:19 AM EDT [facility] Eos# 0.2 0.0 - 0.5 x10(3)/mcL 09/08/2024 7:19 AM EDT [facility] Baso # 0.0 0.0 - 0.1 x10(3)/mcL 09/08/2024 7:19 AM EDT [facility] Blood VENOUS BLOOD / Unknown Venipuncture / Unknown 09/08/2024 6:12 AM EDT 09/08/2024 7:06 AM EDT us Brendan Lopez MD HEMATOLOGY ORDERABLES F inal Result [facility] [address] [facility] , [address] [place] [id number] * (ABNORMAL) COMPREHENSIVE METABOLIC PANEL (09/08/2024 6:12 AM EDT) Only the most recent of2 resultswithin the time period is included. Sodium 138 136 - 145 mmol/L 09/08/2024 7:49 AM EDT [facility] Potassium 3.6 3.5 - 5.0 mmol/L 09/08/2024 7:49 AM EDT [facility] Chloride 101 98 - 107 mmol/L 09/08/2024 7:49 AM EDT [facility] Total CO2 22 22 - 29 mmol/L 09/08/2024 7:49 AM EDT [facility] Anion Gap 15 7 - 16 mmol/L 09/08/2024 7:49 AM EDT [facility] Calcium 8.7 8.6 - 10.4 mg/dL 09/08/2024 7:49 AM EDT [facility] Glucose Lvl 160(H) 70 - 99 mg/dL 09/08/2024 7:49 AM EDT [facility] BUN 6 6 - 20 mg/dL 09/08/2024 7:49 AM EDT [facility] Creatinine 0.59 0.51 - 1.30 mg/dL 09/08/2024 7:49 AM EDT [facility] Albumin 3.8 3.5 - 5.2 gm/dL 09/08/2024 7:49 AM EDT [facility], [facility] Total Protein 7.3 6.4 - 8.3 gm/dL 09/08/2024 7:49 AM EDT [facility], [facility] Bili Total 0.2 0.2 - 1.3 mg/dL 09/08/2024 7:49 AM EDT [facility] ALT 31 <=41 U/L 09/08/2024 7:49 AM EDT [facility], [facility] AST 29 <=40 U/L 09/08/2024 7:49 AM EDT [facility], [facility] Alk Phos 64 36 - 123 U/L 09/08/2024 7:49 AM EDT [facility], [facility] eGFR (CKD-EPIcr 2020) 112 >=60 mL/min/1.7 3 m2 09/08/2024 7:49 AM EDT [facility], [facility] Comment:Estimated GFR was ca lculated using the CKD-EPIcr (2020) equation refit without race. The equation is recommended by the National [employer] - [place] [employer] Task Force. Blood VENOUS BLOOD / Unknown Venipuncture / Unknown 09/08/2024 6:12 AM EDT 09/08/2024 7:06 AM EDT us Brendan Lopez MD CHEMISTRY ORDERABLES Fi nal Result [facility] [address] [facility] , [place] [address] * SCANNED EKG (09/07/2024 2:30 PM EDT) Anatomical Region Laterality Modality Other 09/07/2024 2:30 PM EDT us Unknown Provider IMG ECG ORDERABLES Final Result * TROPONIN-T HIGH SENSITIVITY 2HR (09/07/2024 2:02 AM EDT) [id number]-yVywclduw-[id number] 2HR <6 <14 ng/L 09/07/2024 2:44 AM EDT [facility] [facility] hs-cTnT 2Hr Delta from Baseline 09/07/2024 2:44 AM EDT [facility] [employer] [facility] Comment:Unable to calculate, result is outside instrument's measuring range. Blood VENOUS BLOOD / Unknown Venipuncture / Unknown 09/07/2024 2:02 AM EDT 09/07/2024 2:04 AM EDT Narrative [facility] - 09/07/2024 2:44 AM EDT Ingestion of candy doses of biotin (>5 mg/day) taken within 8 hours of drawing blood sample can interfere with this immunoassay test. us Gallito Chavez MD CHEMISTRY ORDERABLES Final Re sult Performing Organization Address City/[facility]/ZIP Co de Phone Number [address] [address] [facility] [address] , [address] [place] [id number] * BLOOD CULTURE (NO STAIN) (09/07/2024 12:03 AM EDT) Only the most recent of2 resultswithin the time period is included. Pathologist [facility] Culture Result No Growth at 120 hours. BLOOD CULTURE (NO STAIN) 09/12/2024 2:00 AM EDT [facility] [employer] [facility] Blood VENOUS BLOOD / Unknown Venipuncture / Unknown 09/07/2024 12:03 AM EDT 09/07/2024 12:12 AM EDT us Gallito Chavez MD MICROBIOLOGY - GENERAL ORDERA BLES Final Result Performing Organization Address City/[facility]/ZIP Co de Phone Number [address] , [place] [address] * TROPONIN-T HIGH SENSITIVITY BASELINE W/ REFLEX (09/06/2024 11:53 PM EDT) cy-eLobnblci-X <6 <14 ng/L 09/07/2024 12:31 AM EDT [facility] Blood VENOUS BLOOD / Unknown Venipuncture / Unknown 09/06/2024 11:53 PM EDT 09/07/2024 12:13 AM EDT Narrative [facility] - 09/07/2024 12:31 AM EDT Ingestion of candy doses of biotin (>5 mg/day) taken within 8 hours of drawing blood sample can interfere with this immunoassay test. us Gallito Chavez MD CHEMISTRY ORDERABLES Final Re sult [facility] [address] [place] [address] * (ABNORMAL) URINALYSIS REFLEX (09/06/2024 11:53 PM EDT) UA Color Colorless 09/07/2024 12:30 AM EDT [facility] UA Appear Clear Clear 09/07/2024 12:30 AM EDT [facility] UA Glucose Negative Negative mg/dL 09/07/2024 12:30 AM EDT [facility] UA Ketones Negative Negative mg/dL 09/07/2024 12:30 AM EDT [facility] UA Blood Negative Negative 09/07/2024 12:30 AM EDT [facility] UA pH 6.0 5.0 - 8.0 pH 09/07/2024 12:30 AM EDT [facility] UA Protein 1+ (30-70 mg/dL)(A) Negative mg/dL 09/07/2024 12:30 AM EDT [facility] UA Urobilinogen Normal <=1 mg/dL 12:30 AM EDT [facility] UA Bili Negative Negative 09/07/2024 12:30 AM EDT [facility] UA Nitrite Negative Negative 09/07/2024 12:30 AM EDT [facility] UA Leuk Est Negative Negative 09/07/2024 12:30 AM EDT [facility] UA Spec Grav 1.006 1.001 - 1.035 no units 09/07/2024 12:30 AM EDT [facility] Comment:Reference range alba d for random specimens only. UA WBC <1 0 - 4 /HPF 09/07/2024 12:30 AM EDT [facility] UA RBC <1 0 - 3 /HPF 09/07/2024 12:30 AM EDT [facility] UA Squam Epi 2+ /LPF 09/07/2024 12:30 AM EDT [facility] UA Bacteria 1+(A) Negative /HPF 09/07/2024 12:30 AM EDT [facility] Urine STRUCTURE OF URINARY TRACT PROPER / Unknown 09/06/2024 11:53 PM EDT 09/07/2024 12:12 AM EDT Gallito Chavez MD URINE ORDERABLES Final Result Performing Organization Address City/[facility]/ZIP Co de Phone Number [facility], [facility] [address] [facility], [place] [address] * [id number] A/B (09/06/2024 11:53 PM EDT) Pathologist [facility] CORONAVIRUS [id number] Not Detected Not Detected 09/07/2024 12:36 AM EDT [facility] Influenza A DNA Not Detected Not Detected 09/07/2024 12:36 AM EDT [facility] Influenza B DNA Not Detected Not Detected 09/07/2024 12:36 AM EDT [facility] Swab BOTH ANTERIOR NARES / Unknown 09/06/2024 11:53 PM EDT 09/07/2024 12:15 AM EDT Gallito Chavez MD MICROBIOLOGY - GENERAL ORDERA BLES Final Result Performing Organization Address City/[facility]/ZIP Co de Phone Number [facility] [address] [place] [id number] * (ABNORMAL) BLOOD GAS, VENOUS (09/06/2024 11:53 PM EDT) Pathologist [facility] pH Venous 7.40 7.32 - 7.42 pH 09/07/2024 12:23 AM EDT [facility] pCO2 Venous 45 41 - 51 mmHg 09/07/2024 12:23 AM EDT [facility] pO2 Venous 43(H) 25 - 40 mmHg 09/07/2024 12:23 AM EDT [facility], [facility] Comment:Interpret with cauti on. Not recommended to evaluate patient's oxygenation status. Base Excess Richard 2.6 mmol/L 12:23 AM EDT [facility], [facility] Hco3 Venous 27.5 24.0 - 28.0 mmol/L 09/07/2024 12:23 AM EDT [facility], [facility] CO2 Total Richard 24(L) 25 - 29 mmol/L 09/07/2024 12:23 AM EDT [facility], [facility] O2 Sat. Venous 74.7(H) 40.0 - 70.0 % 09/07/2024 12:23 AM EDT [facility], [facility] Inspired O2 2L 09/07/2024 12:23 AM EDT [facility], [facility] Blood VENOUS BLOOD / Unknown Venipuncture / Unknown 09/06/2024 11:53 PM EDT 09/07/2024 12:13 AM EDT us Gallito Chavez MD CHEMISTRY ORDERABLES Final Re sult [address], [place] [address] * EXTRA ESTRADA URINE CX (09/06/2024 11:53 PM EDT) Urine STRUCTURE OF URINARY TRACT PROPER / Unknown 09/06/2024 11:53 PM EDT 09/07/2024 12:12 AM EDT us Gallito Chavez MD MICROBIOLOGY - GENERAL ORDERA BLES Final Result [address] [address] * CBC (09/06/2024 11:53 PM EDT) WBC 5.8 3.7 - 10.3 x10(3)/mcL 09/07/2024 12:18 AM EDT [facility] RBC 4.60 3.90 - 5.20 x10(6)/mcL 09/07/2024 12:18 AM EDT [facility] Hgb 13.1 11.2 - 15.7 g/dL 09/07/2024 12:18 AM EDT [facility] Hct 40.3 34.0 - 45.0 % 09/07/2024 12:18 AM EDT [facility] MCV 87.6 80.0 - 100.0 fL 09/07/2024 12:18 AM EDT [facility] MCH 28.5 26.0 - 34.0 pg 09/07/2024 12:18 AM EDT [facility] MCHC 32.5 30.7 - 35.5 g/dL 09/07/2024 12:18 AM EDT [facility] RDW 12.6 <=14.9 % 09/07/2024 12:18 AM EDT [facility] Platelet 197 155 - 369 x10(3)/mcL 09/07/2024 12:18 AM EDT [facility] MPV 9.3 8.8 - 12.5 fL 09/07/2024 12:18 AM EDT [facility] Blood VENOUS BLOOD / Unknown Venipuncture / Unknown 09/06/2024 11:53 PM EDT 09/07/2024 12:15 AM EDT us Gallito Chavez MD HEMATOLOGY ORDERABLES Final R esult [facility] [address] [place], [place] [id number] * PROCALCITONIN (09/06/2024 11:53 PM EDT) Procalcitonin 0.13 <=0.49 ng/mL 09/07/2024 12:59 AM EDT [facility] [employer] Blood VENOUS BLOOD / Unknown Venipuncture / Unknown 09/06/2024 11:53 PM EDT 09/07/2024 12:36 AM EDT Narrative [facility] [employer] - 09/07/2024 12:59 AM EDT Procalcitonin <0.50 ng/mL: Procalcitonin levels below 0.50 ng/mL on the first day of ICU admission represent a low risk for progression to severe sepsis and/or septic shock Procalcitonin >=0.50 ng/mL and <=2.00 ng/mL: If the procalcitonin measurement is performed shortly after the systemic infection process has started (usually less than 6 hours), this value may still be low. As various non-infectious conditions are known to induce procalcitonin as well, procalcitonin levels between 0.50 ng/mL and 2.00 ng/mL should be reviewed carefully to take into account the specific clinical background and condition(s) of the patient. Procalcitonin >2.00 ng/mL: Procalcitonin levels above 2.00 ng/mL on the first day of ICU admission represent a high risk for progression to severe sepsis and/or septic shock. us Gallito Chavez MD CHEMISTRY ORDERABLES Final Re sult Performing Organization Address [facility] Co de Phone Number [facility] [employer] [address] [facility] [place] [address] * LACTIC ACID (09/06/2024 11:53 PM EDT) [facility] Lactic Acid 1.1 0.5 - 1.9 mmol/L 09/07/2024 12:26 AM EDT [facility] Blood VENOUS BLOOD / Unknown Venipuncture / Unknown 09/06/2024 11:53 PM EDT 09/07/2024 12:13 AM EDT us Gallito Chavez MD CHEMISTRY ORDERABLES Final Re sult Performing Organization Address [facility] Co de Phone Number [address] [address] * (ABNORMAL) HEPATIC FUNCTION PANEL (09/06/2024 11:53 PM EDT) Total Protein 8.5(H) 6.4 - 8.3 gm/dL 09/07/2024 12:30 AM EDT [facility] Albumin 4.2 3.5 - 5.2 gm/dL 09/07/2024 12:30 AM EDT [facility] Bili Direct <0.2 0.0 - 0.3 mg/dL 09/07/2024 12:30 AM EDT [facility] Bili Total 0.3 0.2 - 1.3 mg/dL 09/07/2024 12:30 AM EDT [facility] AST 29 <=40 U/L 09/07/2024 12:30 AM EDT [facility] ALT 40 <=41 U/L 09/07/2024 12:30 AM EDT [facility] Alk Phos 80 36 - 123 U/L 09/07/2024 12:30 AM EDT [facility] Blood VENOUS BLOOD / Unknown Venipuncture / Unknown 09/06/2024 11:53 PM EDT 09/07/2024 12:13 AM EDT us Gallito Chavez MD CHEMISTRY ORDERABLES Final Re sult [facility] [address] [id number] * (ABNORMAL) BASIC METABOLIC PANEL (09/06/2024 11:53 PM EDT) Sodium 133(L) 136 - 145 mmol/L 09/07/2024 12:30 AM EDT [facility] Potassium 3.8 3.5 - 5.0 mmol/L 09/07/2024 12:30 AM EDT [facility] Chloride 96(L) 98 - 107 mmol/L 09/07/2024 12:30 AM EDT [facility] Total CO2 24 22 - 29 mmol/L 09/07/2024 12:30 AM EDT [facility] Anion Gap 13 7 - 16 mmol/L 09/07/2024 12:30 AM EDT [facility] Calcium 9.5 8.6 - 10.4 mg/dL 09/07/2024 12:30 AM EDT [facility] Glucose Lvl 112(H) 70 - 99 mg/dL 09/07/2024 12:30 AM EDT [facility] BUN 6 6 - 20 mg/dL 09/07/2024 12:30 AM EDT [facility] Creatinine 0.65 0.51 - 1.30 mg/dL 09/07/2024 12:30 AM EDT [facility] eGFR (CKD-EPIcr 2020) 109 >=60 mL/min/1.7 3 m2 09/07/2024 12:30 AM EDT [facility] Comment:Estimated GFR was ca lculated using the CKD-EPIcr (2020) equation refit without race. The equation is recommended by the National Kidney [employer] - [place] [employer] of Nephrology Task Force. Blood VENOUS BLOOD / Unknown Venipuncture / Unknown 09/06/2024 11:53 PM EDT 09/07/2024 12:13 AM EDT us Gallito Chavez MD CHEMISTRY ORDERABLES Final Re sult [facility] [address] [place] [address] * XR CHEST AP PORTABLE (09/06/2024 11:19 PM EDT) Anatomical Region Laterality Modality Chest Radiographic Cinthia ging 09/06/2024 11:1 9 PM EDT Impressions 09/06/2024 11:21 PM EDT Atelectasis or pneumonia at the left lung base. Note: Radiology results need to be interpreted within a comprehensive clinical context. If you have questions about the radiology report, please contact the office of the ordering clinician. Narrative 09/06/2024 11:21 PM EDT CLINICAL HISTORY: -SOB. COMPARISON: 04/23/2024. TECHNIQUE: XR CHEST AP PORTABLE on 09/06/2024 11:19 PM. FINDINGS: There is increased density at the left lung with. There is no pneumothorax or pleural effusion. The heart size and pulmonary vascularity are normal. The upper abdomen and osseous structures are unremarkable. Procedure Note Rudy Zelaya MD - 09/06/2024 CLINICAL HISTORY: -SOB. COMPARISON: 04/23/2024. TECHNIQUE: XR CHEST AP PORTABLE on 09/06/2024 11:19 PM. FINDINGS: There is increased density at the left lung with. There is no pneumothorax or pleural effusion. The heart size and pulmonary vascularityare normal. The upper abdomen and osseous structures are unremarkable. IMPRESSION: Atelectasis or pneumonia at the left lung base. Note: Radiology results need to be interpreted within a comprehensiveclinical context. If you have questions about the radiology report, please contactthe office of the ordering clinician. us Gallito Chavez MD IMG DIAGNOSTIC IMAGING ORDERA BLES Final Result * EK EKG 12 LEAD (09/06/2024 11:00 PM EDT) Anatomical Region Laterality Modality Electrocardiogra phy 09/06/2024 11:4 0 PM EDT Impressions 09/07/2024 3:15 PM EDT [place] Test Date: 2024-09-06 Pat Name: [facility] Department: DEPID Room: 332 Gender: Female Internet Marketing Manager: : 1980 Requested By: [employer] [facility] Order Number: [id number] Reading MD: Chinedu Roman MD Measurements Intervals [place] Rate: 104 P: 35 DC: 165 QRS: -3 QRSD: 78 T: 48 QT: 305 QTc: 401 Interpretive Statements SINUS TACHYCARDIA LOW QRS VOLTAGE IN PRECORDIAL LEADS ABNORMAL RHYTHM ECG Electronically Signed On 09-07-2024 15:15:44 EDT by Chinedu Roman MD Narrative Procedure Note Chinedu Roman MD - 09/07/2024 IMPRESSION [place] Test Date: 2024-09-06 Pat Name: [facility] Department: DEPID Room: 332 Gender: Female Internet Marketing Manager: : 1980 Requested By: [employer] [facility] Order Number: [id number] Reading MD: Chinedu Roman MD Measurements Intervals [place] Rate: 104 P: 35 DC: 165 QRS: -3 QRSD: 78 T: 48 QT: 305 QTc: 401 Interpretive Statements SINUS TACHYCARDIA LOW QRS VOLTAGE IN PRECORDIAL LEADS ABNORMAL RHYTHM ECG Electronically Signed On 09-07-2024 15:15:44 EDT by Chinedu Roman MD Gallito Chavez MD IMG ECG ORDERABLES Final Resu lt * STOCK TRACER CYTOLOGY REQUEST (PAP ONLY) (09/12/2022 12:06 PM EDT) CASE REPORT Gynecologic Cytology Report Case: [id number] Authorizing Provider: Tamara Lira APRN Collected: 09/12/2022 1206 Ordering Location: [facility] Received: 09/12/2022 1206 First Screen: Jalyn Lynn CT Specimen: LIQUID-BASED PAP - CERVICAL/ENDOCERV ICAL, Cervix, Endocervical 09/14/2022 10:41 AM EDT [facility] PAP FINAL DIAGNOSIS Negative for intraepithelial lesion or malignancy 09/14/2022 10:41 AM EDT [facility] at 1041 EDT MICROSCOPIC DESCRIPTION Microscopic examination is performed and the findings corroborate the diagnosis. 09/14/2022 10:41 AM EDT [facility] PAP SMEAR ADEQUACY Satisfactory for evaluation 09/14/2022 10:41 AM EDT [facility] ENDOCERVICAL T-ZONE Transformation zone absent. 09/14/2022 10:41 AM EDT [facility] EMBEDDED IMAGES 10:41 AM EDT [facility] PAP DISCLAIMER The Pap Smear is a screening test that aids in the detection of cervical cancer and cancer precursors. Both false positive and false negative results can occur. The test should be used at regular intervals, and positive results should be confirmed before definitive therapy. Processed using the ThinPrep Deburr Technician Automated cytology screening device ([employer]). 09/14/2022 10:41 AM EDT [facility] Thin Prep ENDOCERVICAL STRUCTURE / Unknown 09/12/2022 12:06 PM EDT 09/12/2022 12:06 PM EDT Tamara Lira APRN CYTOLOGY ORDERABLES Final Result Performing Organization Address City/State/[facility] Co de Phone Number [facility] [address] [place] [address] * GMED COLONOSCOPY (04/04/2020 8:30 AM EST) 04/04/2020 8:30 AM EST Impressions [facility] - 04/04/2020 8:40 AM EST Internal [...] is an excerpt of the full report. Elder Corrales MD GI PROCEDURE ORDERABLES Khurram cody Result - Final Performing Organization Address [facility] Co de Phone Number [facility] [address] [place] [address] from Last 3 Months or Most Recently Relevant to Health Maintenance Insurance Marshall FANG [address] PPO VERONIKA PPO Advance Directives For more information, please contact: [phone] * Full Code (Latest Code Status on File) Date Activated Date Inactivated Comments 09/07/2024 2:39 AM 09/08/2024 2:04 PM Care Teams Principal Process Engineer Relationship Specialty Start Date End Date Curly Garcia [address] [place] [address] [address] [place] [facility] PCP - General Family Medicine 05/24/14
== END 2024-11-23 23:59 | disposition home or self-care (01) ==
LOC: LAB.DROPOF 11-24 10:01
PROVIDERS: PCP Nurse Practitioner; Visit Provider Nurse Practitioner
DX: K21.9 Gastro-esophageal reflux disease without esophagitis (principal); R10.84 Generalized abdominal pain; R19.7 Diarrhea, unspecified
CPT/HCPCS: 80053; 80061; 82150; 85025; 86364

== ENCOUNTER 2024-11-30 13:00 | Outpatient (CLI) | payer BC, SELFPAY ==
[2024-11-30 14:27] LABS: Adenovirus F 40/41, stool Not Detected (NotDetected); Clostridium Difficile A/B, PCR Not Detected (NotDetected); Cyclospora Cayetanesis Not Detected (NotDetected); Plesimonas Shigalloides, PCR Not Detected (NotDetected); Salmonella, PCR Not Detected (NotDetected); Shiga-like toxin E coli Not Detected (NotDetected); Shigella Enterovasive E coli Not Detected (NotDetected); Vibrio, PCR Not Detected (NotDetected); Yersinia Entercolitica, PCR Not Detected (NotDetected)
[2024-12-01 11:58] LABS: H. pylori Stool Ag, EIA Negative (Negative)
--- OUTSIDE RECORDS SUMMARY | 2024-12-01 12:35 | XMS_ITS | Encounter Summary ---
Author Organization [place] [address] Care Team Providers Care Hides And Skins Colorer Name Role Phone Curly Garcia Primary Care Provider [phone] Encounter Details Date Type Department Care Team (Late st Contact Info) Description 09/29/2024 Results Follow-Up [facility] [address] [place] [address] Asiya Javed RN MM MAMMO DIGITAL YESSI SCREEN BILAT Social History Tobacco Use Types Packs/Day Years Used Date Smoking Tobacco: Former Cigarettes 2 31.8 1 993 - 02/24/2024 Smokeless Tobacco: Never Alcohol Use Standard Drinks/Week Comments Yes 0 (1 standard drink = 0.6 oz pur e alcohol) 2-3 times per year [facility] Utilities Answer Date Recorded In the past 12 months has [place], gas, oil, or water [employer] threatened to shut off services in your home? No 09/07/2024 Overall Financial Resource Strain (CARDIA) Answe r Date Recorded How hard is it for you to pa y for the very basics like food, housing, medical care, and heating? Not hard at all 09/07/2024 PHQ-2 Answer Date Recorded PHQ-2 Total Score 0 09/07/2024 [facility] [place] of Occupat ional Health - Occupational Stress [...] money to get more. Never true 09/07/2024 [facility] IP Transportation Answer D ate Recorded [...] as of this encounter Plan of Treatment Upcoming Encounters Date Type Department Care Team (Late st Contact Info) Description 12/22/2024 10:15 AM EDT Office Visit [facility] [address] [place] [address] Brady Almaguer MD [address] [place] [address] documented as of this encounter Visit Diagnoses Not on filedocumented in this encounter Care Teams Hides And Skins Colorer Relationship Specialty Start Date End Date Curly Garcia [address] [facility] [address] [place] [address] PCP - General Family Medicine 05/24/14 documented as of this encounter
--- OUTSIDE RECORDS SUMMARY | 2024-12-01 12:35 | XMS_ITS | Clinical Summary ---
Author Organization [facility] Address [address] [place] [address] Phone Care Team Providers Care Security Test Engineer Name Role Phone Curly Garcia Primary Care Provider [phone] Allergies Active Allergy Reactions Criticality Noted Date [...] Active fluticasone propionate (FLONASE) 50 mcg/actuation Nasl Conway, Suspension 1 Conway in each nostril daily. 9.9 mL 5 Active Active Problems Patient Care Coordination No te Formatting of this note migh t be different from the original. Favio POON Controlled report completed 10/15/2016 Request#[id number] Informed consent signed 09/24/2016 Problem Noted Date [...] Results [facility]-Up [facility] [address] [facility] [place] [address] Asiya Javed RN MM MAMMO DIGITAL YESSI SCREEN BILAT 09/28/2024 11:40 AM EDT - 09/28/2024 11:59 PM EDT Hospital Encounter [place] SE[facility] Mammogram [facility] [address] ISAAC Liao [address] Erin Kurtz CNM Encounter for screening mammogram for malignant neoplasm of breast Discharge Disposition: Home or Self Care 09/06/2024 11:10 PM EDT - 09/08/2024 9:54 AM EDT Hospital Encounter EDG [address]C PUL[address] [facility] [place] [address] Gallito Chavez MD Swikert, Donald J, [...] Known Problems Brother Heart Attack Father Demetrius Jarad Heart Disease Father Demetrius Jarad Heart Failure Father Demetrius Jarad Seizures Father Demetrius Jarad High Cholesterol Maternal Aunt 1 GREAT AUNT [...] 4 Heart Surgery Maternal Uncle 5 [place] Hypertension Maternal Uncle 5 [place] High Cholesterol Maternal Uncle 6 [place] Arrhythmia Mother Porsche Jarad Bleeding Prob Mother Porsche Jarad Clotting Disorder Mother Porsche Jarad Diabetes Mother Porsche Jarad Hearing Loss Mother Porsche Jarad Heart Attack Mother Porsche Jarad Heart Disease Mother Porsche Jarad Heart Failure Mother Porsche Jarad pace maker High Cholesterol Mother Porsche Jarad Hypertension Mother Porsche Jarad Pacemaker Mother Porsche Jarad Thyroid Disease Mother Porsche Jarad Breast Cancer Other pt first cousi n breast cancer No Known Problems Paternal Grandfather No Known Problems Paternal Grandmother Thyroid Disease Sister Lopez Allergies Neg Hx Cancer Neg Hx Migraines Neg Hx Relation Name Status Comments Brother Father Demetrius Jarad Alive Maternal Aunt 1 GREAT AUNT Alive Maternal Aunt 2 Araceli Gleason Maternal Aunt 3 Araceli Gleason Alive Maternal Aunt 4 GREAT AUN[place] Alive Maternal Grandfather Maternal Grandmother Maternal Uncle 1 [place]illo Maternal Uncle 2 Pillo Maternal Uncle 3 Maternal Uncle 4 Maternal Uncle 5 [place] Alive Maternal Uncle 6 [place] leone Alive Mother Porsche Jarad Alive Other Paternal Grandfather Paternal Grandmother Sister Lopez Social History Tobacco Use Types Packs/Day Years Used Date Smoking Tobacco: Former Cigarettes 2 31.8 1 993 - 02/24/2024 Smokeless Tobacco: Never Tobacco Cessation:Counseling Given: Not Answered Alcohol Use Standard Drinks/Week Comments Yes 0 (1 standard drink = 0.6 oz pur e alcohol) 2-3 times per year [facility] Utilities Answer Date Recorded In the past [...] Date Recorded PHQ-2 Total Score 0 09/07/2024 [facility] - [facility] [...] money to get more. Never true 09/07/2024 [facility] IP Transportation Answer D ate Recorded In [...] 09/07/2024 2:30 AM EDT Plan of Treatment Upcoming Encounters Date Type Department Care Team (Late st Contact Info) Description 12/22/2024 10:15 AM EDT Office Visit [facility] [address] [place] [address] [address], 3[address] [place] [address] Brady Almaguer MD [address] [place] [address] Health Maintenance Due Date Last Done Comments [...] CX STAT 09/06/2024 1 1:53 PM EDT SDFT-IDK3-TAE A/B Routine 09/06/2024 11: 53 PM EDT BLOOD CULTURE (NO STAIN) STAT 09/06/2024 11:53 PM EDT XR CHEST AP PORTABLE JULY 09/06/2024 11:19 PM EDT EK EKG 12 LEAD STAT 09/06/2024 11:00 PM EDT TEST [facility]KMAN CYTOLOGY REQUEST (PAP ONLY) Routine 09/12/2022 12:06 [...] EDT Impressions 09/29/2024 8:40 AM EDT Negative ([id number]) RECOMMENDATION: Routine Screening Mammogram in 1 Year Bilateral . . COMMENTS: DISCLAIMER *The patient was notified by MyChart or mail of the results for this examination. *The patient's information was entered into a reminder system with a target due date for the next breast imaging, in accordance with the [employer] and the Society of [...] for screening mammogram for malignant neoplasm of [id number] COMPARISON STUDIES: Compared with prior studies the most recent being 11/26/2022 MM MAMMO DIGITAL YESSI DIAGN BILAT at [facility] 11/02/2021 MM MAMMO DIGITAL YESSI SCREEN BILAT at [facility] 05/15/2019 MM MAMMO DIGITAL YESSI SCREEN BILAT at [facility] TISSUE DENSITY: There are scattered areas of fibroglandular density. FINDINGS: No mammographic evidence of malignancy. Procedure Note Alex Smith MD - 09/29/2024 EXAM: MM MAMMO DIGITAL YESSI SCREEN BILAT EXAM DATE: 09/28/2024 11:59 AM INDICATION: Z12.31-Encounter for screening mammogram for malignantneoplasm of [id number]-[id number]-CM COMPARISON STUDIES: Compared with prior studies the most recent being 11/26/2022 MM MAMMO DIGITAL YESSI DIAGN BILAT at [facility] 11/02/2021 MM MAMMO DIGITAL YESSI SCREEN BILAT at [facility] 05/15/2019 MM MAMMO DIGITAL YESSI SCREEN BILAT at [facility] TISSUE DENSITY: There are scattered areas of fibroglandular density. FINDINGS: No mammographic evidence of malignancy. IMPRESSION: Negative ([id number]) RECOMMENDATION: Routine Screening Mammogram in 1 Year Bilateral . . COMMENTS: DISCLAIMER *The patient was notified by MyChart or mail of the results for this examination. *The patient's information was entered into a reminder system with atarget due date for the next breast imaging, in accordance with the [employer] and the Society of Breast Imaging recommendations. *Breast Imaging has a false negative rate of 15%. *Any patient with a palpable abnormality, unexplained by breast imaging,should be managed on a clinical basis by the attending physician. Erin Kurtz [facility] IM MAMMOGRAPHY ORDERABLES Final Result * ECG AND WAVEFORMS - TELEMETRY (09/08/2024 7:04 AM EDT) Only the most recent of4 resultswithin the time period is included. [facility] ECG INTERPRET NSR [facility] 09/08/2024 7:04 AM EDT Narrative [facility] - 09/08/2024 8:25 AM EDT ROUTINE-BB CO 0.18 QRS 0.07 RR 0.63 QT 0.31 QTc 0.39 See Clinical Report link for waveform capture Unknown Provider POINT OF CARE CARDIOLOGY Final Result [facility] [address] [place] [address] * CBC WITH DIFF (09/08/2024 6:12 AM EDT) Only the most recent of2 resultswithin the time period is included. Pathologist [facility] WBC 5.0 3.7 - 10.3 x10(3)/mcL 09/08/2024 7:19 AM EDT [facility] RBC 4.15 3.90 - 5.20 x10(6)/mcL 09/08/2024 7:19 AM EDT [facility] Hgb 11.8 11.2 - 15.7 g/dL 09/08/2024 7:19 AM EDT [facility] Hct 36.8 34.0 - 45.0 % 09/08/2024 7:19 AM EDT [facility] MCV 88.7 80.0 - 100.0 fL 09/08/2024 7:19 AM EDT [facility] MCH 28.4 26.0 - 34.0 pg 09/08/2024 7:19 AM EDT [facility] MCHC 32.1 30.7 - 35.5 g/dL 09/08/2024 7:19 AM EDT [facility] RDW 12.7 <=14.9 % 09/08/2024 7:19 AM EDT [facility] Platelet 185 155 - 369 x10(3)/mcL 09/08/2024 7:19 AM EDT [facility] MPV 9.6 8.8 - 12.5 fL 09/08/2024 7:19 AM EDT [facility] Neut Percent 60.5 % 09/08/2024 7:19 AM EDT [facility] Comment:Neutrophils equals s egs plus bands Imm Gran% 0.4 % 09/08/2024 7:19 AM EDT [facility] Comment:Automated count of m etamyelocytes, myelocytes and promyelocytes. Lymph Percent 28.5 % 09/08/2024 7:19 AM EDT [facility] Sanborn Percent 7.2 % 09/08/2024 7:19 AM EDT [facility] Eos Percent 3.2 % 09/08/2024 7:19 AM EDT [facility] Baso Percent 0.2 % 09/08/2024 7:19 AM EDT [facility] Neut # 3.0 1.6 - 6.1 x10(3)/mcL 09/08/2024 7:19 AM EDT [facility] Comment:Neutrophils equals s egs plus bands IMMGRAN# 0.0 0.0 - 0.1 x10(3)/mcL 09/08/2024 7:19 AM EDT [facility] Comment:Automated count of m etamyelocytes, myelocytes and promyelocytes. An absolute IG <0.1 is reported as 0.0. Lymph # 1.4 1.2 - 3.9 x10(3)/[facility] 09/08/2024 7:19 AM EDT [facility] Sanborn # 0.4 0.3 - 0.9 x10(3)/[facility] 09/08/2024 7:19 AM EDT [facility] Eos# 0.2 0.0 - 0.5 x10(3)/[facility] 09/08/2024 7:19 AM EDT [facility] Baso # 0.0 0.0 - 0.1 x10(3)/[facility] 09/08/2024 7:19 AM EDT [facility] Blood VENOUS BLOOD / Unknown Venipuncture / Unknown 09/08/2024 6:12 AM EDT 09/08/2024 7:06 AM EDT us Brendan Lopez MD HEMATOLOGY ORDERABLES F inal Result [facility] [address] [facility] , [address] [place] [id number] * (ABNORMAL) COMPREHENSIVE METABOLIC PANEL (09/08/2024 6:12 [...] 09/08/2024 7:49 AM EDT [facility] Glucose Lvl 160(H) 70 - 99 mg/dL 09/08/2024 7:49 AM EDT [facility] BUN 6 6 - 20 mg/dL 09/08/2024 7:49 AM EDT [facility] Creatinine 0.59 0.51 - 1.30 mg/dL 09/08/2024 7:49 AM EDT [facility] Albumin 3.8 3.5 - 5.2 gm/dL 09/08/2024 7:49 AM EDT [facility] Total Protein 7.3 6.4 - 8.3 gm/dL 09/08/2024 7:49 AM EDT [facility] Bili Total 0.2 0.2 - 1.3 mg/dL 09/08/2024 7:49 AM EDT [facility] ALT 31 <=41 U/L 09/08/2024 7:49 AM EDT [facility] AST 29 <=40 U/L 09/08/2024 7:49 AM EDT [facility] Alk Phos 64 36 - 123 U/L 09/08/2024 7:49 AM EDT [facility] eGFR (CKD-EPIcr 2020) 112 >=60 mL/min/1.7 3 m2 09/08/2024 7:49 AM EDT [facility] Comment:Estimated GFR was ca lculated using the CKD-EPIcr (2020) equation refit without race. The equation is recommended by the National Kidney Foundation - [place] [employer] Neph[employer] Task Force. Blood VENOUS BLOOD / Unknown Venipuncture / Unknown 09/08/2024 6:12 AM EDT 09/08/2024 7:06 AM EDT us Brendan Lopez MD CHEMISTRY ORDERABLES Fi nal Result [facility] [address] [facility] , [place] [address] * SCANNED EKG (09/07/2024 2:30 PM EDT) Anatomical Region Laterality Modality Other 09/07/2024 2:30 PM EDT us Unknown Provider IMG ECG ORDERABLES Final Result * TROPONIN-T HIGH SENSITIVITY 2HR (09/07/2024 2:02 AM EDT) Pathologist [facility] wr-hNiekcpny-P 2HR <6 <14 ng/L 09/07/2024 2:44 AM EDT [facility] [employer] [facility] hs-cTnT 2Hr Delta from Baseline 09/07/2024 2:44 AM EDT [facility] [employer] [facility] Comment:Unable to calculate, result is outside instrument's measuring range. Blood VENOUS BLOOD / Unknown Venipuncture / Unknown 09/07/2024 2:02 AM EDT 09/07/2024 2:04 AM EDT Narrative [facility] - 09/07/2024 2:44 AM EDT Ingestion of candy doses of biotin (>5 mg/day) taken within 8 hours of drawing blood sample can interfere with this immunoassay test. Gallito Chavez MD CHEMISTRY ORDERABLES Final Re sult Performing Organization Address City/[facility]/[place] [address] [facility] [employer] [address] , [facility] [address] * BLOOD CULTURE (NO STAIN) (09/07/2024 12:03 AM EDT) Only the most recent of2 resultswithin the time period is included. Pathologist [facility] Culture Result No Growth at 120 hours. BLOOD CULTURE (NO STAIN) 09/12/2024 2:00 AM EDT [facility] [employer] [facility] Blood VENOUS BLOOD / Unknown Venipuncture / Unknown 09/07/2024 12:03 AM EDT 09/07/2024 12:12 AM EDT Gallito Chavez MD MICROBIOLOGY - GENERAL ORDERA BLES Final Result Performing Organization Address City/[facility]/ZIP Co de Phone Number [facility] [employer], [address] , [address] [place], [place] [id number] * TROPONIN-T HIGH SENSITIVITY BASELINE W/ REFLEX (09/06/2024 11:53 PM EDT) [facility] nj-uNqovilut-P <6 <14 ng/L 09/07/2024 12:31 AM EDT [facility] Blood VENOUS BLOOD / Unknown Venipuncture / Unknown 09/06/2024 11:53 PM EDT 09/07/2024 12:13 AM EDT Narrative [facility] - 09/07/2024 12:31 AM EDT Ingestion of candy doses of biotin (>5 mg/day) taken within 8 hours of drawing blood sample can interfere with this immunoassay test. us Gallito Chavez MD CHEMISTRY ORDERABLES Final Re sult [address] [address] * (ABNORMAL) URINALYSIS REFLEX (09/06/2024 11:53 PM EDT) [facility] UA Color Colorless 09/07/2024 12:30 AM EDT [facility] UA Appear Clear Clear 09/07/2024 12:30 AM EDT [facility] UA Glucose Negative Negative mg/dL 09/07/2024 12:30 AM EDT [facility] UA Ketones Negative Negative mg/dL 09/07/2024 12:30 AM EDT [facility] Blood Negative Negative 09/07/2024 12:30 AM EDT [facility] pH 6.0 5.0 - 8.0 pH 09/07/2024 12:30 AM EDT [facility] Protein 1+ (30-70 mg/dL)(A) Negative mg/dL 09/07/2024 12:30 AM EDT [facility] Urobilinogen Normal <=1 mg/dL 12:30 AM EDT [facility] Bili Negative Negative 09/07/2024 12:30 AM EDT [facility] Nitrite Negative Negative 09/07/2024 12:30 AM EDT [facility] UA Leuk Est Negative Negative 09/07/2024 12:30 AM EDT [facility] UA Spec Grav 1.006 1.001 - 1.035 no units 09/07/2024 12:30 AM EDT [facility] Comment:Reference range alba d for random specimens only. UA WBC <1 0 - 4 /HPF 09/07/2024 12:30 AM EDT [facility] U[facility] RBC <1 0 - 3 /HPF 09/07/2024 12:30 AM EDT [facility] UA Squam Epi 2+ /LPF 09/07/2024 12:30 AM EDT [facility] UA Bacteria 1+(A) Negative /HPF 09/07/2024 12:30 AM EDT [facility] Urine STRUCTURE OF URINARY TRACT PROPER / Unknown 09/06/2024 11:53 PM EDT 09/07/2024 12:12 AM EDT Gallito Chavez MD URINE ORDERABLES Final Result Performing Organization Address City/[facility]/ZIP Co de Phone Number [facility], [address], [place] [address] * NATM-SCM1-PSL A/B (09/06/2024 11:53 PM EDT) CORONAVIRUS [id number] Not Detected Not Detected 09/07/2024 12:36 AM EDT [facility] Influenza A DNA Not Detected Not Detected 09/07/2024 12:36 AM EDT [facility] Influenza B DNA Not Detected Not Detected 09/07/2024 12:36 AM EDT [facility] Swab BOTH ANTERIOR NARES / Unknown 09/06/2024 11:53 PM EDT 09/07/2024 12:15 AM EDT us Gallito Chavez MD MICROBIOLOGY - GENERAL ORDERA BLES Final Result Performing Organization Address City/[facility]/ZIP Co de Phone Number [facility] [address] [place] [address] * (ABNORMAL) BLOOD GAS, VENOUS (09/06/2024 11:53 PM EDT) pH Venous 7.40 7.32 - 7.42 pH 09/07/2024 12:23 AM EDT [facility] pCO2 Venous 45 41 - 51 mmHg 09/07/2024 12:23 AM EDT [facility] pO2 Venous 43(H) 25 - 40 mmHg 09/07/2024 12:23 AM EDT [facility] Comment:Interpret with cauti on. Not recommended to evaluate patient's oxygenation status. Base Excess Richard 2.6 mmol/L 12:23 AM EDT [facility] Hco3 Venous 27.5 24.0 - 28.0 mmol/L 09/07/2024 12:23 AM EDT [facility] CO2 Total Richard 24(L) 25 - 29 mmol/L 09/07/2024 12:23 AM EDT [facility] O2 Sat. Venous 74.7(H) 40.0 - 70.0 % 09/07/2024 12:23 AM EDT [facility] Inspired O2 2L 09/07/2024 12:23 AM EDT [facility] Blood VENOUS BLOOD / Unknown Venipuncture / Unknown 09/06/2024 11:53 PM EDT 09/07/2024 12:13 AM EDT us Gallito Chavez MD CHEMISTRY ORDERABLES Final Re sult [facility], [address], [place] [address] * EXTRA ESTRADA URINE CX (09/06/2024 11:53 PM EDT) Urine STRUCTURE OF URINARY TRACT PROPER / Unknown 09/06/2024 11:53 PM EDT 09/07/2024 12:12 AM EDT us Gallito Chavez MD MICROBIOLOGY - GENERAL ORDERA BLES Final Result [facility] [address] [place] [address] * CBC (09/06/2024 11:53 PM EDT) Pathologist [facility] WBC 5.8 3.7 - 10.3 x10(3)/mcL 09/07/2024 12:18 AM EDT [facility] RBC 4.60 3.90 - 5.20 x10(6)/mcL 09/07/2024 12:18 AM EDT [facility] Hgb 13.1 11.2 - 15.7 g/dL 09/07/2024 12:18 AM EDT [facility] Hct 40.3 34.0 - 45.0 % 09/07/2024 12:18 AM EDT [facility] MCV 87.6 80.0 - 100.0 fL 09/07/2024 12:18 AM EDT [facility] MCH 28.5 26.0 - 34.0 pg 09/07/2024 12:18 AM EDT [facility] MCHC 32.5 30.7 - 35.5 g/dL 09/07/2024 12:18 AM EDT [facility] RDW 12.6 <=14.9 % 09/07/2024 12:18 AM EDT [facility] Platelet 197 155 - 369 x10(3)/mcL 09/07/2024 12:18 AM EDT [facility] MPV 9.3 8.8 - 12.5 fL 09/07/2024 12:18 AM EDT [facility] Blood VENOUS BLOOD / Unknown Venipuncture / Unknown 09/06/2024 11:53 PM EDT 09/07/2024 12:15 AM EDT us Gallito Chavez MD HEMATOLOGY ORDERABLES Final R esult [facility] [address] [place] [address] * PROCALCITONIN (09/06/2024 11:53 PM EDT) Procalcitonin 0.13 <=0.49 ng/mL 09/07/2024 12:59 AM EDT [facility] Blood VENOUS BLOOD / Unknown Venipuncture / Unknown 09/06/2024 11:53 PM EDT 09/07/2024 12:36 AM EDT Narrative [facility] - 09/07/2024 12:59 AM EDT Procalcitonin <0.50 [...] Chavez MD CHEMISTRY ORDERABLES Final Re sult [facility] [address] [place] [address] , [place] [address] * LACTIC ACID (09/06/2024 11:53 PM EDT) Lactic Acid 1.1 0.5 - 1.9 mmol/L 09/07/2024 12:26 AM EDT [facility] Blood VENOUS BLOOD / Unknown Venipuncture / Unknown 09/06/2024 11:53 PM EDT 09/07/2024 12:13 AM EDT us Gallito Chavez MD CHEMISTRY ORDERABLES Final Re sult Performing Organization Address City/[facility] [place] [address] * (ABNORMAL) HEPATIC FUNCTION PANEL (09/06/2024 11:53 PM EDT) [facility] Total Protein 8.5(H) 6.4 - 8.3 gm/dL 09/07/2024 12:30 AM EDT [facility] Albumin 4.2 3.5 - 5.2 gm/dL 09/07/2024 12:30 AM EDT [facility] Bili Direct <0.2 0.0 - 0.3 mg/dL 09/07/2024 12:30 AM EDT [facility] Bili Total 0.3 0.2 - 1.3 mg/dL 09/07/2024 12:30 AM EDT [facility] AST 29 <=40 U/L 09/07/2024 12:30 AM EDT [facility] ALT 40 <=41 U/L 09/07/2024 12:30 AM EDT [facility] Alk Phos 80 36 - 123 U/L 09/07/2024 12:30 AM EDT [facility] Blood VENOUS BLOOD / Unknown Venipuncture / Unknown 09/06/2024 11:53 PM EDT 09/07/2024 12:13 AM EDT us Gallito Chavez MD CHEMISTRY ORDERABLES Final Re sult Performing Organization Address [facility]/ZIP Co de Phone Number [facility] [address] [place] [address] * (ABNORMAL) BASIC METABOLIC PANEL (09/06/2024 11:53 PM EDT) [facility] Sodium 133(L) 136 - 145 mmol/L 09/07/2024 12:30 AM EDT [facility] Potassium 3.8 3.5 - 5.0 mmol/L 09/07/2024 12:30 AM EDT [facility] Chloride 96(L) 98 - 107 mmol/L 09/07/2024 12:30 AM EDT [facility] Total CO2 24 22 - 29 mmol/L 09/07/2024 12:30 AM EDT [facility] Anion Gap 13 7 - 16 mmol/L 09/07/2024 12:30 AM EDT [facility] Calcium 9.5 8.6 - 10.4 mg/dL 09/07/2024 12:30 AM EDT [facility] Glucose Lvl 112(H) 70 - 99 mg/dL 09/07/2024 12:30 AM EDT [facility] BUN 6 6 - 20 mg/dL 09/07/2024 12:30 AM EDT [facility] Creatinine 0.65 0.51 - 1.30 mg/dL 09/07/2024 12:30 AM EDT [facility] eGFR (CKD-EPIcr 2020) 109 >=60 mL/min/1.7 3 m2 09/07/2024 12:30 AM EDT [facility] Comment:Estimated GFR was ca lculated using the CKD-EPIcr (2020) equation refit without race. The equation is recommended by the National Kidney Foundation - [place] [employer] of Nephrology Task Force. Blood VENOUS BLOOD / Unknown Venipuncture / Unknown 09/06/2024 11:53 PM EDT 09/07/2024 12:13 AM EDT us Gallito Chavez MD CHEMISTRY ORDERABLES Final Re sult [facility] [address] [place], [place] [id number] * XR CHEST AP PORTABLE (09/06/2024 11:19 [...] please contactthe office of the ordering clinician. Gallito Chavez MD IMG DIAGNOSTIC IMAGING ORDERA BLES Final Result * EK EKG 12 LEAD (09/06/2024 11:00 PM EDT) Anatomical Region Laterality Modality Electrocardiogra phy 09/06/2024 11:4 0 PM EDT Impressions 09/07/2024 3:15 PM EDT [place] Test Date: 2024-09-06 Pat Name: [facility] Department: DEPID Room: 3321 Gender: Female Aluminizer: : 1980 Requested By: [facility] Order Number: [id number] Reading MD: Chinedu Roman MD Measurements Intervals [place] Rate: 104 P: 35 CO: 165 QRS: -3 QRSD: 78 T: 48 QT: 305 QTc: 401 Interpretive Statements SINUS TACHYCARDIA LOW QRS VOLTAGE IN PRECORDIAL LEADS ABNORMAL RHYTHM ECG Electronically Signed On 09-07-2024 15:15:44 EDT by Chinedu Roman MD Narrative Procedure Note Chinedu Roman MD - 09/07/2024 IMPRESSION [place] Test Date: 2024-09-06 Pat Name: AUGUST JARAD Department: DEPID Room: 3321 Gender: Female Aluminizer: : 1980 Requested By: [facility] Order Number: [id number] Reading MD: Chinedu Roman MD Measurements Intervals [place] Rate: 104 P: 35 CO: 165 QRS: -3 QRSD: 78 T: 48 QT: 305 QTc: 401 Interpretive Statements SINUS TACHYCARDIA LOW QRS VOLTAGE IN PRECORDIAL LEADS ABNORMAL RHYTHM ECG Electronically Signed On 09-07-2024 15:15:44 EDT by Chinedu Roman MD Gallito Chavez MD IMG ECG ORDERABLES Final Resu lt * TEST [place] CYTOLOGY REQUEST (PAP ONLY) (09/12/2022 12:06 PM EDT) CASE REPORT Gynecologic Cytology Report Case: [id number] Authorizing Provider: Tamara Lira APRN Collected: 09/12/2022 1206 Ordering Location: [facility] Received: 09/12/2022 1206 First Screen: Jalyn Lynn CT Specimen: LIQUID-BASED PAP - CERVICAL/ENDOCERV ICAL, Cervix, Endocervical 09/14/2022 10:41 AM EDT [facility] PAP FINAL DIAGNOSIS Negative for intraepithelial lesion or malignancy 09/14/2022 10:41 AM EDT [facility] at 1041 EDT MICROSCOPIC DESCRIPTION Microscopic examination is performed and the findings corroborate the diagnosis. 09/14/2022 10:41 AM EDT [facility] PAP SMEAR ADEQUACY Satisfactory for evaluation 09/14/2022 10:41 AM EDT [facility] ENDOCERVICAL T-ZONE Transformation zone absent. 09/14/2022 10:41 AM EDT [facility] EMBEDDED IMAGES 10:41 AM EDT [facility] PAP DISCLAIMER The Pap Smear is a screening test that aids in the detection of cervical cancer and cancer precursors. Both false positive and false negative results can occur. The test should be used at regular intervals, and positive results should be confirmed before definitive therapy. Processed using the OneBuildPrep Machine Trimmer Automated cytology screening device (SoCAT). 09/14/2022 10:41 AM EDT [facility] Thin Prep ENDOCERVICAL STRUCTURE / Unknown 09/12/2022 12:06 PM EDT 09/12/2022 12:06 PM EDT Tamara Lira POLICY CANCELLATION CLERK CYTOLOGY ORDERABLES Final Result Performing Organization Address [facility] Co de Phone Number [facility] [address] [place] [address] * GMED COLONOSCOPY (04/04/2020 8:30 AM EST) 04/04/2020 8:30 AM EST Impressions [facility] - 04/04/2020 8:40 AM EST [...] cody Result - Final Performing Organization Address [facility] Co de Phone Number [facility] [address] [place] [address] from Last 3 Months or Most Recently Relevant to Health Maintenance Insurance [employer]A PPO [employer]A PPO Advance Directives For more information, please contact: [phone] * Full Code (Latest Code Status on File) Date Activated Date Inactivated Comments 09/07/2024 2:39 AM 09/08/2024 2:04 PM Care Teams Security Test Engineer Relationship Specialty Start Date End Date Curly Garcia [address] [facility] (work) PCP - General Family Medicine 05/24/14
--- OUTSIDE RECORDS SUMMARY | 2024-12-01 12:35 | XMS_ITS ---
Author Organization Unknown Medications Medication Instructions Effective Dates (start - stop) Status amphetamine aspartate 2.5 MG / amphetamine sulfate 2.5 MG / dextroamphetamine saccharate 2.5 MG / dextroamphetamine sulfate 2.5 MG Oral Tablet [id number]:00:00.000+00: 00 - Completed amphetamine aspartate 2.5 MG / amphetamine sulfate 2.5 MG / dextroamphetamine saccharate 2.5 MG / dextroamphetamine sulfate 2.5 MG Oral Tablet [id number]:00:00.000+00: 00 - Completed amphetamine aspartate 2.5 MG / amphetamine sulfate 2.5 MG / dextroamphetamine saccharate 2.5 MG / dextroamphetamine sulfate 2.5 MG Oral Tablet [id number]:00:00.000+00: 00 - Completed dextromethorphan hydrobromid e 3 MG/ML / promethazine hydrochloride 1.25 MG/ML Oral Solution [id number]:00:00.000+00: 00 - Completed amoxicillin 875 MG / clavula tenisha 125 MG Oral Tablet [id number]:00:00.000+00: 00 - Completed amphetamine aspartate 2.5 MG / amphetamine sulfate 2.5 MG / dextroamphetamine saccharate 2.5 MG / dextroamphetamine sulfate 2.5 MG Oral Tablet [id number]:00:00.000+00: 00 - Completed amphetamine aspartate 2.5 MG / amphetamine sulfate 2.5 MG / dextroamphetamine saccharate 2.5 MG / dextroamphetamine sulfate 2.5 MG Oral Tablet [id number]:00:00.000+00: 00 - Completed amphetamine aspartate 2.5 MG / amphetamine sulfate 2.5 MG / dextroamphetamine saccharate 2.5 MG / dextroamphetamine sulfate 2.5 MG Oral Tablet [id number]:00:00.000+00: 00 - Completed amphetamine aspartate 2.5 MG / amphetamine sulfate 2.5 MG / dextroamphetamine saccharate 2.5 MG / dextroamphetamine sulfate 2.5 MG Oral Tablet [id number]:00:00.000+00: 00 - Completed dextromethorphan hydrobromid e 3 MG/ML / promethazine hydrochloride 1.25 MG/ML Oral Solution [id number]:00:00.000+00: 00 - Completed 3 ML liraglutide 6 MG/ML Pen Injector [Saxenda] [id number]:00:00.000+00: 00 - Completed 3 ML liraglutide 6 MG/ML Pen Injector [Saxenda] [id number]:00:00.000+00: 00 - Completed 3 ML liraglutide 6 MG/ML Pen Injector [Saxenda] [id number]:00:00.000+00: 00 - Completed 3 ML liraglutide 6 MG/ML Pen Injector [Saxenda] [id number]:00:00.000+00: 00 - Completed 3 ML liraglutide 6 MG/ML Pen Injector [Saxenda] [id number]:00:00.000+00: 00 - Completed [id number] 200 ACTUAT albuter ol 0.09 MG/ACTUAT Metered Dose Inhaler [id number]:00:00.000 +00: 00 - Completed atorvastatin 10 MG Oral Tablet 2 668-92-13P93:00:00.000+00: 00 - Completed atorvastatin 10 MG Oral Tablet 2 [id number]:00:00.000+00: 00 - Completed azithromycin 500 MG Oral Tablet 8229-38-99C73:00:00.000+00: 00 - Completed clindamycin 300 MG Oral Capsule 3360-75-82J44:00:00.000+00: 00 - Completed benzonatate 200 MG Oral Capsule 1203-44-84F20:00:00.000+00: 00 - Completed benzonatate 200 MG Oral Capsule [id number]:00:00.000+00: 00 - Completed sulfacetamide sodium 100 MG/ ML Ophthalmic Solution [id number]:00:00.000+00: 00 - Completed - 5407-12-49P64:00 :00.000+00: 00 - Completed - [id number]:00 :00.000+00: 00 - Completed - 6451-69-86M17:00 :00.000+00: 00 - Completed aspirin 81 MG Chewable Tablet 02-10-10T00:00:00.000+00: 00 - Completed Patient Care team information Name Category Status Period Participants - - Proposed period not known -
--- OUTSIDE RECORDS SUMMARY | 2024-12-01 12:35 | XMS_ITS | Encounter Summary ---
Author Organization [place] [address] Care Team Providers Care Post Graduate Intern Name Role Phone Curly Garcia Primary Care Provider [phone] Encounter Details Date Type Department Care Team (Late st Contact Info) Description 06/11/2014 Orders Only [facility] [address] [address] Luke Rutherford MD Social History [...] EDT Office Visit [facility] [address] [facility] [address] ENTRANCE, 3RD [place] [address] Brady Almaguer MD [address] [place] [address] documented as of this encounter Procedures Procedure Name Priority Date/Time Associated Diagnosis Comments GMED EGD Routine 06/11/2014 10:15 AM EST documented in this encounter Results * GMED EGD (06/11/2014 10:15 AM EST) 06/11/2014 10:1 5 AM EST Impressions [facility] - 06/11/2014 10:46 AM EST Normal esophagus. Normal duodenum. Erosions in the antrum compatible with erosive gastritis. (Biopsy). This section is an excerpt of the full report. us Luke Rutherford MD GI PROCEDURE ORDERABLES Final R esult [facility] 1 [place] [address] documented in this encounter Visit Diagnoses Not on filedocumented in this encounter Additional Health Concerns Infection Onset Date Last Indicated Resolved Time R/O COVID-19 01/26/2020 01/26/2020 01/27/2020 3:41 PM EDT R/O COVID-19 04/23/2024 04/23/2024 04/23/2024 3:42 AM EST R/O COVID-19 09/06/2024 09/06/2024 09/07/2024 12:3 6 AM EDT documented as of this encounter Care Teams Post Graduate Intern Relationship Specialty Start Date End Date Curly Garcia [address] [facility] [address] [place] [address] PCP - General Family Medicine 05/24/14 documented as of this encounter
--- OUTSIDE RECORDS SUMMARY | 2024-12-01 12:35 | XMS_ITS | Encounter Summary ---
Author Organization [place] [address] Care Team Providers Care Epic Prelude Analyst Name Role Phone Curly Garcia Primary Care Provider [phone] Encounter Details Date Type Department Care Team (Late Contact Info) Description 04/04/2020 Orders Only [facility] [address] [address] Elder Corrales MD [address] [place] [id number] Social History Tobacco Use Types Packs/Day Years [...] Encounters Date Type Department Care Team (Late Contact Info) Description 12/22/2024 10:15 AM EDT Office Visit [facility] [address], 3RD [place] [address] Brady Almaguer MD [address] [place], [place] [id number] documented as of this encounter Procedures Procedure Name Priority Date/Time Associated Diagnosis Comments GMED COLONOSCOPY Routine 04/04/2020 8:30 AM EST documented in this encounter Results * GMED COLONOSCOPY (04/04/2020 8:30 AM EST) 04/04/2020 8:30 AM EST Impressions [facility] - 04/04/2020 8:40 AM [...] PROCEDURE ORDERABLES Khurram cody Result - Final [facility] [address] [place] [address] documented in this encounter Visit Diagnoses Not on filedocumented in this encounter Additional Health Concerns Infection Onset Date Last Indicated Resolved Time R/O COVID-19 04/23/2024 04/23/2024 04/23/2024 3:42 AM EST R/O COVID-19 09/06/2024 09/06/2024 09/07/2024 12:3 6 AM EDT documented as of this encounter Care Teams Epic Prelude Analyst Relationship Specialty Start Date End Date Curly Garcia [address] [place] [address] PCP - General Family Medicine 05/24/14 documented as of this encounter
--- OUTSIDE RECORDS SUMMARY | 2024-12-01 12:35 | XMS_ITS | Encounter Summary ---
Author Organization [place] [address] Care Team Providers Care Science Intern Name Role Phone Curly Garcia Primary Care Provider [phone] Encounter Details Date Type Department Care Team (Late Contact Info) Description 04/04/2020 [facility] [place] [id number] Elder Corrales MD [address] [place] [address] Diarrhea, unspecified; Change in bowel habit; Diverticulosis [...] EDT Office Visit [facility] [address] [facility] [address]TR[address], 3[place] [address] Brady Almaguer MD [address] [place] [address] documented as of this encounter Procedures Procedure Name Priority Date/Time Associated Diagnosis Comments PATHOLOGY TISSUE REQUEST Routine 04/04/2020 8:30 AM EST Diarrhea, unspecified Change in bowel habit Diverticulosis of large intestine without perforation or abscess without bleeding documented in this encounter Results * PATHOLOGY TISSUE REQUEST (04/04/2020 8:30 AM EST) CASE REPORT Surgical Pathology Case: [id number] Authorizing Provider: Elder Corrales MD Collected: 04/04/2020 0830 Ordering Location: [facility] Received: 04/04/2020 3578 Pathologist: Miranda Candelario MD Specimen: Colon 04/05/2020 9:21 AM EST [facility] CLINICAL HISTORY Postprandial diarrhea; change in bowel habits. 04/05/2020 9:21 AM EST [facility] FINAL DIAGNOSIS Colon, random biopsies: - Colonic mucosa without significant pathologic change. 04/05/2020 9:21 AM EST [facility] at 0921 EST MICROSCOPIC DESCRIPTION Microscopic examination is performed and the findings corroborate the diagnosis. 04/05/2020 9:21 AM EST [facility] EMBEDDED IMAGES 04/05/2020 9:21 AM EST [facility] Scheduling Employee Scheduling Software [facility] GROSS DESCRIPTION Received in formalin labeled with the patient's name and random colon biopsies are multiple fragments of cyr tissue ranging from 0.2 to 0.5 cm in greatest dimension. Entirely submitted in one cassette. /ZN 04/05/2020 9:21 AM EST [facility] Tissue COLON STRUCTURE / Unknown 04/04/2020 8:30 AM EST 04/04/2020 3:08 PM EST us Elder Corrales MD PATHOLOGY ORDERABLES Final Result [facility] [address] [place] [address] [facility] 1 [place] [address] documented in this encounter Visit Diagnoses Diagnosis [...] documented as of this encounter Care Teams Science Intern Relationship Specialty Start Date End Date Curly Garcia [address] [facility] [address] [place] [address] PCP - General Family Medicine 05/24/14 documented as of this encounter
== END 2024-11-30 23:59 | disposition home or self-care (01) ==
LOC: LAB.DROPOF 12-01 12:33
PROVIDERS: PCP Nurse Practitioner; Visit Provider Nurse Practitioner
DX: K21.9 Gastro-esophageal reflux disease without esophagitis (principal); R10.84 Generalized abdominal pain; R19.7 Diarrhea, unspecified
CPT/HCPCS: 87338; 87507

== ENCOUNTER 2024-12-29 07:57 | Outpatient (CLI) | payer BC, SELFPAY ==
--- OUTSIDE RECORDS SUMMARY | 2024-12-22 10:15 | XMS_ITS | Encounter Summary ---
Author Organization [place] [address] Care Team Providers Care House Shorer Name Role Phone Radha, Curly Luna Primary Care Provider [phone] Reason for Referral * GI Procedure (Routine) - Pending Review Specialty Diagnoses / Procedures Referred By Contac t Referred To Contact Diagnoses Gastroesophageal reflux disease with esophagitis without hemorrhage Abdominal bloating Diarrhea, unspecified type Procedures AMB EGD W ANESTH COMM ORDER Brady Almaguer MD [facility] [place] [address] Phone: tel: fax: Referral ID Status Reason Start Date Expiration Date V isits Requested Visits Authorized [id number] Pending Review 12/22/2024 12/22/2025 1 1 Reason for Visit * Reason Comments Gastroesophageal Reflux Bloated states she feels jose f y bloated after eating , has a lot of sulfur tasting belching Abdominal Pain luq tenderness Diarrhea * Consultation (Routine) - Pending Review Specialty Diagnoses / Procedures Referred By Contact Referred To Contact Internal Medicine-Gastroenterology / Gastroenterology Diagnoses ice-vfgosige-fistvpnb -abd pain Procedures NEW PATIENT Brady Almaguer MD [address] [place] [address] Phone: tel:[phone] fax: Referral ID Status Reason Start Date Expiration Date V isits Requested Visits Authorized [id number] Pending Review 12/22/2024 12/22/2025 99 99 Encounter Details Date Type Department Care Team (Latest Contact Info) Description 12/22/2024 10:15 AM EDT Office Visit [facility] [address] [facility] 1D ENTRANCE, 3RD [place] [address] Brady Almaguer MD [address] [place] [address] Gastroesophageal reflux disease with esophagitis without hemorrhage (Primary Dx); Abdominal bloating; Diarrhea, unspecified type Social History Tobacco Use Types Packs/Day Years Used Date Smoking Tobacco: Former Cigarettes 2 31.8 1 993 - 02/24/2024 Smokeless Tobacco: Never Alcohol Use Standard Drinks/Week Comments Yes 0 (1 standard drink = 0.6 oz pur e alcohol) 2-3 times per year [facility] Utilities Answer Date Recorded In the [...] money to get more. Never true 09/07/2024 [facility] Answer D ate [...] on file documented as of this encounter Last Filed Vital Signs Vital Sign [place] Time Taken Comments Blood Pressure 138/98 12/22/2024 10:10 AM EDT Pulse - - Temperature - - Respiratory Rate - - Oxygen Saturation - - Inhaled Oxygen Concentration - - Weight 75.3 kg (166 lb) 12/22/2024 10:10 AM EDT Height 157.5 cm (5' 2 ) 12/22/2024 10:10 AM EDT Body Mass Index 30.36 12/22/2024 10:10 AM EDT documented in this encounter Ordered Prescriptions Prescription Sig Dispense Quantity Refills Last Filled Start Date End Date colestipoL (COLESTID) 1 gram Oral TabletIndications: Abdominal bloating,Diarrhea, unspecified type Take 2 Tablets by mouth 2 times daily. Slowly increase up to this dosage, hold for constipation. 120 Tablet 5 12/22/2024 documented in this encounter Progress Notes * Brady Almaguer MD - 12/22/2024 11:31 AM EDTAssociated Problem(s): Gastroesophageal reflux disease with esophagitis without hemorrhage Longstanding issue. Currently not on any stable therapy. Likely worsened by Wegovy. Further evaluation with EGD as her last was 10 years ago and showed esophagitis. If there is worsening of esophagitis she will likely need chronic therapy. * Brady Almaguer MD - 12/22/2024 11:31 AM EDTAssociated Problem(s): Diarrhea Longstanding. Likely worsened following cholecystectomy. Will try colestipol * Brady Almaguer MD - 12/22/2024 11:31 AM EDTAssociated Problem(s): Abdominal bloating Reviewed low FODMAP diet. Possibly related to food she is eating as well as carbonated beverages. Discussed possible contribution from Nara * Brady Almaguer MD - 12/22/2024 10:15 AM EDT [facility] Note New Patient Primary Care Physician: Curly Garcia REASON FOR CONSULT / CHIEF COMPLAINT: Chief Complaint Patient presents with ??? Gastroesophageal Reflux ??? Bloated states she feels very bloated after eating , has a lot of sulfur tasting belching ??? Abdominal Pain luq tenderness ??? Diarrhea ASSESSMENT and PLAN Ms. Urbano had concerns including Gastroesophageal Reflux, Bloated (states she feels very bloated after eating , has a lot of sulfur tasting belching ), Abdominal Pain (luq tenderness ), and Diarrhea. Diagnoses and all orders for this visit: Gastroesophageal reflux disease with esophagitis without hemorrhage Assessment & Plan: Longstanding issue. Currently not on any stable therapy. Likely worsened by Wegovy. Further evaluation with EGD as her last was 10 years ago and showed esophagitis. If there is worsening of esophagitis she will likely need chronic therapy. Orders: - CELIAC SCREEN W/ REFLEX; Future - AMB EGD W ANESTH COMM ORDER Abdominal bloating Assessment & Plan: Reviewed low FODMAP diet. Possibly related to food she is eating as well as carbonated beverages. Discussed possible contribution from Wegovy Orders: - CELIAC SCREEN W/ REFLEX; Future - AMB EGD W ANESTH COMM ORDER - colestipoL (COLESTID) 1 gram Oral Tablet; Take 2 Tablets by mouth 2 times daily. Slowly increase up to this dosage, hold for constipation. Dispense: 120 Tablet; Refill: 5 Diarrhea, unspecified type Assessment & Plan: Longstanding. Likely worsened following cholecystectomy. Will try colestipol Orders: - CELIAC SCREEN W/ REFLEX; Future - AMB EGD W ANESTH COMM ORDER - colestipoL (COLESTID) 1 gram Oral Tablet; Take 2 Tablets by mouth 2 times daily. Slowly increase up to this dosage, hold for constipation. Dispense: 120 Tablet; Refill: 5 No follow-ups on file. VISIT ORDERS Orders Placed This Encounter Procedures ??? Celiac Screen w/ Reflex Standing Status: Future Expiration Date: 12/21/2025 ??? EGD w/ Anesthesia Comm Order Thank you Curly Garcia for asking me to participate in the care of Kira Urbano. Please letme know if you have any additional questions or concerns or if there is anything else I can do to assist in the care of this patient. Brady Almaguer MD [facility] HISTORY OF PRESENT ILLNESS: Kira Urbano is a 44 y.o. female who has a past medical history of Fibroid, Heartburn, Hiatal hernia, Hypertension, and Syncope and collapse. being seen today for Gastroesophageal Reflux, Bloated (states she feels very bloated after eating , has a lot of sulfur tasting belching ), Abdominal Pain(luq tenderness ), and Diarrhea Kira Urbano presents today to establish care regarding multiple GI complaints. States that she has significant acid reflux and has had this for many years. Has tried omeprazole in the past thoughthis caused issues with her legs. Pantoprazole was not helpful. Also tried famotidine in the past though this did not help as well. Gets significant issues after foods such as pasta with tomato sauce. Also having tenderness in her left upper quadrant which is also worse after eating. States she is feeling bloating and having sulfur tasting burps. States she has been having loose stools for over a year. Rarely has a solid stool. Goes multiple times a day. Has been on Wegovy since earlier this year and dose was more recently increased. Diet: Drinks 2-3 coffees a day. 1-2 Mountain Dew's a day. Typically eats 1 meal a day in the evening. Admits that her diet is poor. Eating out about twice a week. Chart Review: 03/10/2020: GI visit for change in bowel habits over 1 year with postprandial diarrhea and urgency.5 bowel months a day with some incontinence. No family history of cancer or IBD or celiac disease. Cholecystectomy 5 years prior. Plan for colonoscopy, probiotics, Citrucel. 05/26/2014: GI visit for LUQ pain. Hurts when eating. Plan for EGD Relevant Labs: 09/08/24: Normal renal panel, normal LFTs, Hgb 11.8, platelets 185 Relevant Imaging: No recent relevant imaging Prior Endoscopies: Colonoscopy 04/04/2020 Internal hemorrhoids. Mild diverticulosis of the sigmoid colon. Normal mucosa in the terminal ileum. Normal mucosa in the whole colon. (Biopsy). FINAL DIAGNOSIS Colon, random biopsies: - Colonic mucosa without significant pathologic change. EGD 06/11/14 Normal esophagus. Normal duodenum. Erosions in the antrum compatible with erosive gastritis. (Biopsy). Negative for H. pylori Weight: Wt Readings from Last 10 Encounters: 12/22/24 166 lb (75.3 kg) 09/07/24 171 lb (77.6 kg) 04/23/24 168 lb 14.4 oz (76.6 kg) 09/25/23 165 lb (74.8 kg) 03/27/23 162 lb (73.5 kg) 10/29/22 151 lb (68.5 kg) 10/16/22 150 lb (68 kg) 09/20/22 150 lb (68 kg) 09/12/22 150 lb 6.4 oz (68.2 kg) 10/02/21 160 lb 6.4 oz (72.8 kg) PHYSICAL EXAMINATION: BP 138/98 Ht 5' 2 (1.575 m) Wt 166 lb (75.3 kg) BMI 30.36 kg/m?? CONSTITUTIONAL: No apparent distress, and appears stated age. HEENT: AT/NC, b/l nares patent, MMM RESPIRATORY: No increased work of breathing, no cough, no wheezing GI: Soft, obese. Mildly distended. Tympanic to percussion. MUSCULOSKELETAL: There is no redness, warmth, or swelling of the visualized joints. SKIN: Normal skin color, texture, turgor, no jaundice. NEUROLOGIC: No overt neurological defects. No asterixis. PAST MEDICAL HISTORY: Past Medical History: Diagnosis Date ??? Fibroid ??? Heartburn ??? Hiatal hernia ??? Hypertension ??? Syncope and collapse Past Surgical History: Procedure Laterality Date ??? ABDOMINOPLASTY 10/2017 ??? APPENDECTOMY ??? SECTION ??? CHOLECYSTECTOMY 07/2014 ??? DENTAL SURGERY ??? NOSE SURGERY septoplasty ??? SEPTOPLASTY N/A 10/16/2016 SEPTOPLASTY; Surgeon: Keo Mendoza MD; Location: [facility] MAIN OR; Service: ENT ??? SHOULDER SURGERY Left 2001 MEDICATIONS: Current Outpatient Medications Medication ??? albuterol (PROVENTIL HFA;VENTOLIN HFA) 90 mcg/actuation Inhl HFA Aerosol Inhaler ??? dextroamphetamine-amphetamine (ADDERALL) 10 mg Oral Tablet ??? fluticasone propionate (FLONASE) 50 mcg/actuation Nasl [place], Suspension ??? WEGOVY 1 mg/0.5 mL SubQ Pen Injector ??? atorvastatin (LIPITOR) 10 mg Oral Tablet ??? colestipoL (COLESTID) 1 gram Oral Tablet No current facility-administered medications for this visit. Portions of this note were generated using voice dictation software and may contain unintentional errors. documented in this encounter Miscellaneous Notes * Patient Instructions - Brady Almaguer MD - 12/22/2024 10:15 AM EDT Images from the original note were not included. Follow a diet low in FODMAPs as listed below documented in this encounter Plan of Treatment Upcoming Encounters Date Type Department Care Team (Late st Contact Info) Description 02/08/2025 7:30 AM EDT Appointment [facility] [address] [place] [address] Brady Almaguer MD [address] [place] [address] Scheduled Orders Name Type Priority Associated Diagnoses Orde r Schedule CELIAC SCREEN W/ REFLEX Lab Routine Gastroesophageal reflux disease with esophagitis without hemorrhage Abdominal bloating Diarrhea, unspecified type 1 Occurrences starting 12/22/2024 until 12/21/2025 documented as of this encounter Visit Diagnoses Diagnosis Gastroesophageal reflux disease with esophagitis without hemorrhage- Primary Abdominal bloating Flatulence, eructation, and gas pain Diarrhea, unspecified type documented in this encounter Historical Medications * This list may reflect changes made after this encounter. WEGOVY 1 mg/0.5 mL SubQ Pen Injector Inject 1 mg under the skin once a week. 11/26/2024 added in this encounter Orders Nursing Count Last Ordered Date First Orde red Date AMB EGD W ANESTH COMM ORDER 1 12/22/2024 documented in this encounter Care Teams House Shorer Relationship Specialty Start Date End Date Curly Garcia [facility] [place] [facility] [address] [place] [address] PCP - General Family Medicine 05/24/14 documented as of this encounter
--- OUTSIDE RECORDS SUMMARY | 2024-12-29 07:58 | XMS_ITS | Clinical Summary ---
Author Organization [facility] Medical Address [address] [place] [address] Phone Care Team Providers Care Core Measures Abstractor Name Role Phone Unavailable Unavailable Conditions or Problems Problem Name Problem Code Onset Date Status Entry Date Provider Comment Standard Description Annotate ABSENCE OF MENSTRUATION 356422411 (SNOMED CT) 11/17 Resolved 11/17 Gely North CNM Menstruation absent PNEUMONIA 914119238 (SNOMED CT) Resolved Gely North CNM Pneumonia SINUSITIS ACUTE 95146843 (SNOMED CT) Resolved Gely North CNM Acute sinusitis PHYSICAL EXAMINATION 2258403 (SNOMED CT) Resolved Gely North CNM Physical examination ABDOMINAL PAIN 98767201 (SNOMED CT) 07/05 Resolved 07/05 Gely North CNM Abdominal pain ABSCESS, VULVA 67080770 (SNOMED CT) 12/09 Resolved 12/09 Gely North CNM Abscess of vulva ABSENCE OF MENSTRUATION 795019703 (SNOMED CT) 11/17 Removed 11/17 Gely North CNM Menstruation absent ABSCESS, VULVA 14018409 (SNOMED CT) 12/09 Removed 12/09 Shelli Shankar MD Abscess of vulva ABDOMINAL PAIN 51353080 (SNOMED CT) 07/05 Removed 07/05 Dairen Mercedes MD Abdominal pain FAMILY PLANNING 611730966 (SNOMED CT) 05/29 Active 05/29 Kaleigh Villarreal RN Contraception care STD SCREENING 834513500 (SNOMED CT) 05/29 Inactive 05/29 Darien Mercedes MD Venereal disease screening AMMONIA TECHNICIAN EXAM 18241858 (SNOMED CT) 05/29 Inactive 05/29 Darien Mercedes MD Gynecologic examination PHYSICAL EXAMINATION 6478213 (SNOMED CT) Removed Jerman Abilio MA Physical examination OBSTRUCTIVE SLEEP APNEA 05828408 (SNOMED CT) Active Darien Mercedes MD Obstructive sleep apnea syndrome SINUSITIS ACUTE 88433097 (SNOMED CT) Removed Darien Mercedes MD Acute sinusitis PNEUMONIA 311110068 (SNOMED CT) Removed Darien Mercedes MD Pneumonia Medications Medication Instructions Start Date Stop Date Generic Name [facility] Provider JANNY 0.35 MG TABS 1 daily NORETHINDRONE [id number] Gely TEJADAM AZITHROMYCIN 250 MG TABS 2 tabs PO on day 1 then 1 tab PO Qday on days 2-7 AZITHROMYCIN 93189237052 Gely North CNM VENTOLIN HFA 108 (90 Base) MCG/ACT AERS 2 puffs inhaled B1qgcou PRN wheezing/coughi ng ALBUTEROL SULFATE 71003159853 Darien Mercedes MD AZITHROMYCIN 250 MG TABS 2 tabs PO on day 1 then 1 tab PO Qday on days 2-7 AZITHROMYCIN 84348698947 Darien Mercedes MD Medications Administered No information [...] I N Hepatitis B virus surface Ag [Units/volume] in Serum HB CORE IGM NON-REACTIVE NON-REACT I N [...] in Blood ABS NEUTROPH 5758 CELLS/UL 10*3/uL 9312-0476 N Neutrophils [#/volume] in Blood PLATELETK/UL 279 [...] Code Procedure Name Date Entry Date Quest# [id number] ThinPrep w HR HPV/GC/Chlamydia mRNA E6/E7 8396 [facility] Test # HCG Quantitative 11/17 CPT-81885 Venipuncture US GB SE Ultrasound Gall Bladder 2011 CPT-42077 CBC with diff CPT-73009 Lipase CPT-75901 Hepatitic Function Panel 201 06/14/22 CPT II 1000F #114: Tobacco use assessed 2 CPT II 1036F #114: Current tobacco non-user CPT-G8457 #115: Current tobacco non-user CPT-77626 Test CPT-38694 Pap (Out Order) CPT-84860 Kassandra Petersy (Out Order) 05/29 CPT-34688 Venipuncture CPT-74109 BMP CPT-94339 Lipid Panel Vital Signs Date Name Value [...]
--- OUTSIDE RECORDS SUMMARY | 2024-12-29 07:59 | XMS_ITS | Encounter Summary ---
Author Organization [place] [address] Care Team Providers Care Commercial Account Officer Name Role Phone Curly Garcia Primary Care Provider [phone] Encounter Details Date Type Department Care Team (Late Contact Info) Description 04/04/2020 [facility] [place] [id number] Elder Corrales MD [address] [place] [address] Diarrhea, unspecified; Change in bowel habit; Diverticulosis [...] 02/08/2025 7:30 AM EDT Appointment [facility] [address] [place] [address] Brady Almaguer MD [address] [place] [address] documented as of this encounter Procedures Procedure Name Priority Date/Time Associated Diagnosis Comments PATHOLOGY TISSUE REQUEST Routine 04/04/2020 8:30 AM EST Diarrhea, unspecified Change in bowel habit Diverticulosis of large intestine without perforation or abscess without bleeding documented in this encounter Results * PATHOLOGY TISSUE REQUEST (04/04/2020 8:30 AM EST) CASE REPORT Surgical Pathology Case: [id number] Authorizing Provider: Elder Corrales MD Collected: 04/04/2020 0830 Ordering Location: [facility] Received: 04/04/2020 6678 Pathologist: Miranda Candelario MD Specimen: Colon 04/05/2020 9:21 AM EST [facility] Postprandial diarrhea; change in bowel habits. 04/05/2020 9:21 AM EST [facility] FINAL DIAGNOSIS Colon, random biopsies: - Colonic mucosa without significant pathologic change. 04/05/2020 9:21 AM EST [facility] at 0921 EST MICROSCOPIC DESCRIPTION Microscopic examination is performed and the findings corroborate the diagnosis. 04/05/2020 9:21 AM EST [facility] EMBEDDED IMAGES 04/05/2020 9:21 AM EST [facility] GROSS DESCRIPTION Received in formalin labeled with the patient's name and random colon biopsies are multiple fragments of cyr tissue ranging from 0.2 to 0.5 cm in greatest dimension. Entirely submitted in one cassette. /ZN 04/05/2020 9:21 AM EST [facility] Tissue COLON STRUCTURE / Unknown 04/04/2020 8:30 AM EST 04/04/2020 3:08 PM EST us Elder Corrales MD PATHOLOGY ORDERABLES Final Result [facility] [address] [facility] [place] [address] [facility] 1 [place], [place] [id number] documented in this encounter Visit Diagnoses Diagnosis [...] documented as of this encounter Care Teams Commercial Account Officer Relationship Specialty Start Date End Date Curly Garcia [address] [facility] [address] PCP - General Family Medicine 05/24/14 documented as of this encounter
--- OUTSIDE RECORDS SUMMARY | 2024-12-29 07:59 | XMS_ITS | Clinical Summary ---
Author Organization [facility] Address [address] [place] [address] Phone Care Team Providers Care Jumpbasting Armhole Baster Name Role Phone Curly Garcia Primary Care Provider [phone] Allergies Active Allergy Reactions Criticality Noted Date Comments Oxycodone-Acetaminophen Itching High 09/19/2017 Medications dextroamphetamin e-amphetamine (ADDERALL) 10 mg Oral Tablet Take 10 mg by mouth 2 times daily. 0 8 Active atorvastatin (LIPITOR) 10 mg Oral Tablet TAKE 1 TABLET ORALLY ONCE DAILY 3 Active albuterol (PROVENTIL HFA;VENTOLIN HFA) 90 mcg/actuation Inhl HFA Aerosol Inhaler INHALE 2 PUFFS EVERY 6 HOURS NEEDED FOR SHORTNESS OF BREATH OR WHEEZING 3 Active fluticasone propionate (FLONASE) 50 mcg/actuation Nasl Townsend, Suspension 1 Townsend in each nostril daily. 9.9 mL 5 Active WEGOVY 1 mg/0.5 mL SubQ Pen Injector Inject 1 mg under the skin once a week. 5 Active colestipoL (COLESTID) 1 gram Oral TabletIndication s:Abdominal bloating,Diarrhe a, unspecified type Take 2 Tablets by mouth 2 times daily. Slowly increase up to this dosage, hold for constipation. 120 Tablet 5 5 Active Active Problems Patient Care Coordination No te Formatting of this note migh t be different from the original. Favio POON Controlled report completed 10/15/2016 Request#[id number] Informed consent signed 09/24/2016 Problem Noted Date Diagnosed Date Gastroesophageal reflux dise ase with esophagitis without hemorrhage 12/22/2024 Assessment & Plan (12/22/2024 11:31 AM EDT): Longstanding issue. Currently not on any stable therapy. Likely worsened by Wegovy. Further evaluation with EGD as her last was 10 years ago and showed esophagitis. If there is worsening of esophagitis she will likely need chronic therapy. Abdominal bloating 12/22/2024 Assessment & Plan (12/22/2024 11:32 AM EDT): Reviewed low FODMAP diet. Possibly related to food she is eating as well as carbonated beverages. Discussed possible contribution from Wegovy Diarrhea 12/22/2024 Assessment & Plan (12/22/2024 11:31 AM EDT): Longstanding. Likely worsened following cholecystectomy. Will try colestipol Pneumonia of left lower lobe due to [...] Encounters Date Type Department Care Team Description 12/22/2024 10:15 AM EDT Office Visit [facility] [address] [place] [address] Brady Almaguer MD Gastroesophageal reflux disease with esophagitis without hemorrhage (Primary Dx); Abdominal bloating; Diarrhea, unspecified type 12/22/2024 Travel 09/29/2024 Results Follow-Up [facility] [address] [place] [address] Asiya Javed RN MM MAMMO DIGITAL YESSI SCREEN BILAT 09/28/2024 11:40 AM EDT - 09/28/2024 11:59 PM EDT Hospital Encounter [facility] [address] [place] [id number] Erin Kurtz CNM Encounter for screening mammogram for malignant neoplasm of breast Discharge Disposition: Home or Self Care from Last 3 Months Immunizations Immunization Administration Dates Next Due Pneumococcal Conjugate Vaccine 20 Valent 025 Surgical History Surgery Date Site/Laterality Comments APPENDECTOMY CHOLECYSTECTOMY 07/11/2014 - 08/10/2014 SECTION DENTAL SURGERY SHOULDER SURGERY 05/13/2001 - 05/12/2002 Left SEPTOPLASTY 10/16/2016 Nose/N/A SEPTOPLASTY; Surgeon: Keo Mendoza MD; Location: [facility]; Service: ENT NOSE SURGERY septoplasty [...] Disease Mother Porsche Giles Heart Failure Mother Porcshe Giles pace maker High Cholesterol Mother Porsche Giles Hypertension Mother Porsche Giles Pacemaker Mother Porsche Giles Thyroid Disease Mother Porsche Giles Breast Cancer Other pt first cousi n breast cancer No Known Problems Paternal Grandfather No Known Problems Paternal Grandmother Thyroid Disease Sister Lopez Allergies Neg Hx Cancer Neg Hx Migraines Neg Hx Relation Name Status Comments Brother Father Demetrius Skaggs Alive Maternal Aunt 1 GREAT AUNT Alive [...] pur e alcohol) 2-3 times per year [facility] Utilities Answer Date Recorded In the past 12 months has [employer] electric, gas, oil, or water [employer] threatened to shut off services in your home? No 09/07/2024 Overall Financial Resource Strain (CARDIA) Answe r Date Recorded How hard is it for you to pa y for the very basics like food, housing, medical care, and heating? Not hard at all 09/07/2024 PHQ-2 Answer Date Recorded PHQ-2 Total Score 0 09/07/2024 [facility] [place] of Occupat ional Health - Occupational Stress [...] money to get more. Never true 09/07/2024 [facility] IP Transportation Answer D ate Recorded [...] Pressure 138/98 12/22/2024 10:10 AM EDT Pulse 88 09/08/2024 8:30 AM EDT Temperature 37 C (98.6 F) 09/08/2024 7:50 AM EDT Respiratory Rate 16 09/08/2024 8:30 AM EDT Oxygen Saturation 93% 09/08/2024 8:30 AM EDT Inhaled Oxygen Concentration - - Weight 75.3 kg (166 lb) 12/22/2024 10:10 AM EDT Height 157.5 cm (5' 2 ) 12/22/2024 10:10 AM EDT Body Mass Index 30.36 12/22/2024 10:10 AM EDT Plan of Treatment Upcoming Encounters Date Type Department Care Team (Late st Contact Info) Description 02/08/2025 7:30 AM EDT Appointment [facility]. [place] [address] Brady Almaguer MD [address] [facility] [place] [address] Health Maintenance Due Date Last Done Comments [...] screening mammogram for malignant neoplasm of breast FORESTRY LABORER CYTOLOGY REQUEST (PAP ONLY) Routine 09/12/2022 12:06 [...] EDT Impressions 09/29/2024 8:40 AM EDT Negative ([id number]-7) RECOMMENDATION: Routine Screening Mammogram in 1 Year Bilateral . . COMMENTS: DISCLAIMER *The patient was notified by MyChart or mail of the results for this examination. *The patient's information was entered into a reminder system with a target due date for the next breast imaging, in accordance with the [employer] and the Society of [...] for screening mammogram for malignant neoplasm of [id number]-04-CM COMPARISON STUDIES: Compared with prior studies the most recent being 11/26/2022 MM MAMMO DIGITAL YESSI DIAGN BILAT at [facility] 11/02/2021 MM MAMMO DIGITAL YESSI SCREEN BILAT at [facility] 05/15/2019 MM MAMMO DIGITAL YESSI SCREEN BILAT at [facility] TISSUE DENSITY: There are scattered areas of fibroglandular density. FINDINGS: No mammographic evidence of malignancy. Procedure Note Alex Smith MD - 09/29/2024 EXAM: MM MAMMO DIGITAL YESSI SCREEN BILAT EXAM DATE: 09/28/2024 11:59 AM INDICATION: Z12.31-Encounter for screening mammogram for malignantneoplasm of [id number]-CM COMPARISON STUDIES: Compared with prior studies the most recent being 11/26/2022 MM MAMMO DIGITAL YESSI DIAGN BILAT at [facility] 11/02/2021 MM MAMMO DIGITAL YESSI SCREEN BILAT at [facility] 05/15/2019 MM MAMMO DIGITAL YESSI SCREEN BILAT at [facility] TISSUE DENSITY: There are scattered areas of fibroglandular density. FINDINGS: No mammographic evidence of malignancy. IMPRESSION: Negative (ABQ-Mczfhlqw-5) RECOMMENDATION: Routine Screening Mammogram in 1 Year Bilateral . . COMMENTS: DISCLAIMER *The patient was notified by MyChart or mail of the results for this examination. *The patient's information was entered into a reminder system with atarget due date for the next breast imaging, in accordance with the [employer] and the Society of Breast Imaging recommendations. *Breast Imaging has a false negative rate of 15%. *Any patient with a palpable abnormality, unexplained by breast imaging,should be managed on a clinical basis by the attending physician. Erin Humphries Jerardo [facility] IM MAMMOGRAPHY ORDERABLES Final Result * FORESTRY LABORER CYTOLOGY REQUEST (PAP ONLY) (09/12/2022 12:06 PM EDT) CASE REPORT Gynecologic Cytology Report Case: [id number] Authorizing Provider: Tamara Lira APRN Collected: 09/12/2022 1206 [facility]ing Location: [facility] Received: 09/12/2022 1206 First Screen: Jalyn Lynn CT Specimen: LIQUID-BASED PAP - CERVICAL/ENDOCERV ICAL, Cervix, Endocervical 09/14/2022 10:41 AM EDT [facility] PAP FINAL DIAGNOSIS Negative for intraepithelial lesion or malignancy 09/14/2022 10:41 AM EDT [facility] at 1041 EDT MICROSCOPIC DESCRIPTION Microscopic examination is performed and the findings corroborate the diagnosis. 09/14/2022 10:41 AM EDT [facility] PAP SMEAR ADEQUACY Satisfactory for evaluation 09/14/2022 10:41 AM EDT [facility] ENDOCERVICAL T-ZONE Transformation zone absent. 09/14/2022 10:41 AM EDT [facility] EMBEDDED IMAGES 10:41 AM EDT [facility] PAP DISCLAIMER The Pap Smear is a screening test that aids in the detection of cervical cancer and cancer precursors. Both false positive and false negative results can occur. The test should be used at regular intervals, and positive results should be confirmed before definitive therapy. Processed using the ThinPrep Director Building Automated cytology screening device (Trada). 09/14/2022 10:41 AM EDT [facility] Thin Prep ENDOCERVICAL STRUCTURE / Unknown 09/12/2022 12:06 PM EDT 09/12/2022 12:06 PM EDT Tamara Lira SALES REPRESENTATIVE PUBLICATIONS CYTOLOGY ORDERABLES Final Result Performing Organization Address [facility] Co de Phone Number [facility] [address] [place] [address] * GMED COLONOSCOPY (04/04/2020 8:30 [...] cody Result - Final Performing Organization Address City/[facility] Co de Phone Number [facility] [address] [place] [address] from Last 3 Months or Most Recently Relevant to Health Maintenance Insurance VERONIKA PPO VERONIKA PPO Advance Directives For more information, please contact: [phone] * Full Code (Latest Code Status on File) Date Activated Date Inactivated Comments 09/07/2024 2:39 AM 09/08/2024 2:04 PM Care Teams Jumpbasting Armhole Baster Relationship Specialty Start Date End Date Curly Garcia [address] [place] [address] PCP - General Family Medicine 05/24/14
--- OUTSIDE RECORDS SUMMARY | 2024-12-29 07:59 | XMS_ITS | Encounter Summary ---
Author Organization [place] [address] Care Team Providers Care Choir Teacher Name Role Phone Curly Garcia Primary Care Provider [phone] Encounter Details Date Type Department Care Team (Late st Contact Info) Description 06/11/2014 Orders Only [facility] [address] [address] Luke Rutherford MD Social History [...] Department Care Team (Late Contact Info) Description 02/08/2025 7:30 AM EDT Appointment [facility] [address] [place] [address] Brady Almaguer MD [address] [place] [address] documented as of this encounter Procedures Procedure Name Priority Date/Time Associated Diagnosis Comments GMED EGD Routine 06/11/2014 10:15 AM EST documented in this encounter Results * [facility]ED EGD (06/11/2014 10:15 AM EST) 06/11/2014 10:1 5 AM EST Impressions [facility] - 06/11/2014 10:46 AM EST Normal esophagus. Normal duodenum. Erosions in the antrum compatible with erosive gastritis. (Biopsy). This section is an excerpt of the full report. us Luke Rutherford MD GI PROCEDURE ORDERABLES Final R esult [facility] 1 [place] [address] documented in this encounter Visit Diagnoses Not on filedocumented in this encounter Additional Health Concerns Infection Onset Date Last Indicated Resolved Time R/O COVID-19 01/26/2020 01/26/2020 01/27/2020 3:41 PM EDT R/O COVID-19 04/23/2024 04/23/2024 04/23/2024 3:42 AM EST R/O COVID-19 09/06/2024 09/06/2024 09/07/2024 12:3 6 AM EDT documented as of this encounter Care Teams Choir Teacher Relationship Specialty Start Date End Date Curly Garcia [facility] [address] [place] [address] PCP - General Family Medicine 05/24/14 documented as of this encounter
--- OUTSIDE RECORDS SUMMARY | 2024-12-29 07:59 | XMS_ITS | Encounter Summary ---
Author Organization [place] [address] Care Team Providers Care Rubber Thread Spooler Name Role Phone Curly Garcia Primary Care Provider [phone] Encounter Details Date Type Department Care Team (Late Contact Info) Description 04/04/2020 Orders Only [facility] [address] [address] Elder Corrales MD [address] [place] [phone] Social History Tobacco Use Types Packs/Day Years [...] 02/08/2025 7:30 AM EDT Appointment [facility] [address] [facility]. [place] [address] Brady Almaguer MD [address] [facility] [place] [address] documented as of this encounter Procedures Procedure Name Priority Date/Time Associated Diagnosis Comments GMED COLONOSCOPY Routine 04/04/2020 8:30 AM EST documented in this encounter Results * GMED COLONOSCOPY (04/04/2020 8:30 AM EST) 04/04/2020 8:30 AM EST Impressions [facility] - 04/04/2020 8:40 AM EST [...] PROCEDURE ORDERABLES Khurram cody Result - Final [facility] 1 [place] [address] documented in this encounter Visit Diagnoses Not on filedocumented in this encounter Additional Health Concerns Infection Onset Date Last Indicated Resolved Time R/O COVID-19 04/23/2024 04/23/2024 04/23/2024 3:42 AM EST R/O COVID-19 09/06/2024 09/06/2024 09/07/2024 12:3 6 AM EDT documented as of this encounter Care Teams Rubber Thread Spooler Relationship Specialty Start Date End Date Curly Garcia [address] [facility] [address] [place] [address] PCP - General Family Medicine 05/24/14 documented as of this encounter
--- OUTSIDE RECORDS SUMMARY | 2024-12-29 07:59 | XMS_ITS | Encounter Summary ---
Author Organization [place] [address] Care Team Providers Care Enamel Shader Name Role Phone Curly Garcia Primary Care Provider [phone] Encounter Details Date Type Department Care Team (Late st Contact Info) Description 09/29/2024 Results [facility]-Up [facility] [address] [place] [address] Asiya Javed RN MM MAMMO DIGITAL YESSI SCREEN BILAT Social History Tobacco Use Types Packs/Day Years Used Date Smoking Tobacco: Former Cigarettes 2 31.8 1 993 - 02/24/2024 Smokeless Tobacco: Never Alcohol Use Standard Drinks/Week Comments Yes 0 (1 standard drink = 0.6 oz pur e alcohol) 2-3 times per year [facility] Utilities Answer Date Recorded In the past 12 months has [employer], gas, oil, or water [employer] threatened to shut off services in your home? No 09/07/2024 Overall Financial Resource Strain (CARDIA) Answe r Date Recorded How hard is it for you to pa y for the very basics like food, housing, medical care, and heating? Not hard at all 09/07/2024 PHQ-2 Answer Date Recorded PHQ-2 Total Score 0 09/07/2024 [facility] [place] of Occupat ional Health - Occupational Stress [...] money to get more. Never true 09/07/2024 [facility] HRSN [facility] IP Transportation Answer D ate Recorded [...] 02/08/2025 7:30 AM EDT Appointment [facility] [address] [place] [address] Brady Almaguer MD [address] [place] [address] documented as of this encounter Visit Diagnoses Not on filedocumented in this encounter Care Teams Enamel Shader Relationship Specialty Start Date End Date Curly Garcia [address] [facility] [address] [place] [address] PCP - General Family Medicine 05/24/14 documented as of this encounter
--- OUTSIDE RECORDS SUMMARY | 2024-12-29 07:59 | XMS_ITS | Encounter Summary ---
Author Organization [facility] [place] [address] Care Team Providers Care Resistance Welding Machine Operator Name Role Phone Curly Garcia Primary Care Provider [phone] Encounter Details Date Type Department Care Team (Latest Contact Info) Description 12/22/2024 Travel Social History Tobacco Use Types Packs/Day Years Used Date Smoking Tobacco: Former Cigarettes 2 31.8 1 993 - 02/24/2024 Smokeless Tobacco: Never Alcohol Use Standard Drinks/Week Comments Yes 0 (1 standard drink = 0.6 oz pur e alcohol) 2-3 times per year [facility] Utilities Answer Date Recorded In [...] Date Recorded PHQ-2 Total Score 0 09/07/2024 [facility] [place] of Occupat ional Health - Occupational Stress [...] money to get more. Never true 09/07/2024 [facility] IP Transportation Answer D ate Recorded [...] 02/08/2025 7:30 AM EDT Appointment [facility] [address] [place] [address] Brady Almaguer MD [address] [place] [address] documented as of this encounter Visit Diagnoses Not on filedocumented in this encounter Care Teams Resistance Welding Machine Operator Relationship Specialty Start Date End Date Curly Garcia [facility] [address] [place] [address] PCP - General Family Medicine 05/24/14 documented as of this encounter
--- NOTE | 2024-12-29 08:00 | CT_ITS ---
FINAL REPORT TECHNIQUE: After the administration of oral and intravenous contrast, axial images were obtained through the abdomen and pelvis by computed tomography. The study was performed with techniques to keep radiation dose as low as reasonably achievable, (ALARA). Individual dose reduction techniques using automated exposure control or adjustment of mA and/or kV according to the patient's size were employed. CLINICAL HISTORY: generalized abdominal pain and ttp; diarrhea FINDINGS: Abdomen: The lung bases are clear. There is extensive fatty infiltration of the liver. The liver measures 21 cm. The gallbladder is surgically absent. There is splenomegaly with the spleen measuring 14 cm. Pancreas, adrenals and kidneys appear unremarkable. The aorta is normal in caliber. There is no free fluid or adenopathy. Postoperative changes are seen in the right lower quadrant. Pelvis: The appendix is not identified. There are heterogeneously enhancing masses in the uterus measuring up to 4.5 cm, probably due to fibroids. The urinary bladder is incompletely distended. There is no free fluid or adenopathy. IMPRESSION: Hepatosplenomegaly with fatty liver. Fibroid uterus. Reviewed, Interpreted and Dictated by Ernie Jackson MD Transcribed by Pamela Hua Authenticated and . [facility]
[2024-12-29] MEDS: BARIUM SULFATE(READI-CAT2);450ML BOTTLE 450 ML PO (08:09)
[2024-12-29] MEDS: SODIUM CHLORIDE 0.9% 10ML SYR (RAD ONLY) 10 ML IV (08:09)
[2024-12-29] MEDS: IOPAMIDOL-370 (76%);100ML BOTTLE 75 ML IV (08:09)
== END 2024-12-29 23:59 | disposition home or self-care (01) ==
LOC: RAD 07:57
PROVIDERS: PCP Nurse Practitioner; Visit Provider Nurse Practitioner
DX: D25.9 Leiomyoma of uterus, unspecified (principal); R16.2 Hepatomegaly with splenomegaly, not elsewhere classified; R10.84 Generalized abdominal pain; R19.7 Diarrhea, unspecified
CPT/HCPCS: 74177; Q9967